=== PATIENT | female | born 1945 | race Caucasian/White ===

== ENCOUNTER 2020-04-11 08:00 | Outpatient (RCR) | payer MEDICARE, SELFPAY ==
[2020-03-06 07:52] VITALS: BP 128/76; PULSE 55; O2SAT 99
== END 2020-05-03 13:18 | disposition other institution (70) ==
LOC: HO.PT 08:00
PROVIDERS: Visit Provider Physical Medicine & Rehabilitation
DX: M54.5 Low back pain (principal)
CPT/HCPCS: 97110; 97162; 97530

== ENCOUNTER → 2020-08-12 12:47 | Outpatient (BNVA) | payer MEDICARE, SELFPAY | PROVIDERS: PCP Internal Medicine; Visit Provider Internal Medicine Cardiovascular Disease | DX: Z45.018 Encounter for adjustment and management of other part of cardiac pacemaker (principal); I48.0 Paroxysmal atrial fibrillation; Z51.81 Encounter for therapeutic drug level monitoring | CPT/HCPCS: 93005; 99202 ==

== ENCOUNTER 2020-08-13 07:46 | Outpatient (REF) | payer MEDICARE, SELFPAY ==
--- NOTE | 2020-08-13 16:20 | PFT_ITS ---
INDICATION: Atrial fibrillation. SPIROMETRY: FEV1 to FVC of 81% with an FEV1 of 1.45 L, which is 82% predicted, FVC of 1.78 L, which is 75% predicted. No significant response to bronchodilators noted. Maximum voluntary ventilation 94% predicted. LUNG VOLUMES: Total lung capacity 76% predicted, where diffusion capacity of 47% predicted. COMPARISONS: None available. INTERPRETATION: No obstructive ventilatory defect. No significant response to bronchodilators noted. Normal maximum voluntary ventilation. The patient does have a mild restrictive ventilatory defect of unclear etiology, although interstitial lung conditions cannot be ruled out. In addition to that, the patient has a [id number] diffusion impairment, therefore underlying interstitial lung conditions and/or pulmonary vascular conditions should be considered. Clinical correlation warranted. Imaging studies are warranted. Neftali Martinez MD MR/MODL / [id number]
== END 2020-08-13 07:47 | disposition home or self-care (01) ==
LOC: HO.RESP 07:46
PROVIDERS: PCP Internal Medicine; Visit Provider Internal Medicine Cardiovascular Disease
DX: I48.0 Paroxysmal atrial fibrillation (principal)
CPT/HCPCS: 94060; 94727; 94729

== ENCOUNTER → 2020-09-12 10:05 | Outpatient (BNVA) | payer MEDICARE, SELFPAY | PROVIDERS: PCP Internal Medicine; Visit Provider Internal Medicine | DX: J98.4 Other disorders of lung (principal); R06.00 Dyspnea, unspecified; Z79.899 Other long term (current) drug therapy | CPT/HCPCS: 99202 ==

== ENCOUNTER 2020-10-29 09:36 | Outpatient (REF) | payer MEDICARE, SELFPAY ==
[2020-10-29 12:21] LABS: TSH reflex Free T4 0.75 uIU/mL (0.32-4.0)
[2020-10-29 12:44] LABS: Alanine Aminotransferase 54 U/L (0-31); Albumin Level 4.1 g/dL (3.5-5.0); Alkaline Phosphatase 81 U/L (39-117); Aspartate Amino Transferase 70 U/L (5-31); Bilirubin Direct 0.6 mg/dL (0.0-0.5); Total Protein 7.4 g/dL (6.5-8.0)
== END 2020-10-29 09:37 | disposition home or self-care (01) ==
LOC: HO.LAB 09:36
PROVIDERS: PCP Internal Medicine; Visit Provider Internal Medicine Cardiovascular Disease
DX: I48.0 Paroxysmal atrial fibrillation (principal)
CPT/HCPCS: 36415; 80076; 84443

== ENCOUNTER → 2020-11-04 13:24 | Outpatient (BNVA) | payer MEDICARE, SELFPAY | PROVIDERS: PCP Internal Medicine; Referring Provider Internal Medicine; Visit Provider Internal Medicine Cardiovascular Disease | DX: I48.0 Paroxysmal atrial fibrillation (principal); Z95.0 Presence of cardiac pacemaker; Z79.899 Other long term (current) drug therapy | CPT/HCPCS: 99212 ==

== ENCOUNTER 2020-11-12 09:14 | Outpatient (REF) | payer MEDICARE, SELFPAY ==
[2020-11-12 10:18] LABS: MANUAL DIFF FLAG NO
[2020-11-12 10:41] LABS: Basophils Absolute Auto 0.1 X10*3/uL (0.0-0.2); Basophils Percent Auto 0.7 % (0-2); Eosinophils Absolute Auto 0.1 X10*3/uL (0.0-0.4); Eosinophils Percent Auto 1.6 % (0-4); Hematocrit 41.7 % (37-47); Hemoglobin 13.4 g/dl (12.0-16.0); Imm Gran Abs Auto 0.02 X10*3/uL (0.00-0.03); Imm Gran Pct Auto 0.3 % (0.0-0.4); Lymphocytes Absolute Auto 1.3 X10*3/uL (1.2-4.9); Lymphocytes Percent Auto 18.9 % (20-40); Mean Corpuscular HGB Conc 32.1 g/dl (31.0-35.0); Mean Corpuscular Hemoglobin 30.5 pg (27.0-33.0); Mean Corpuscular Volume 94.8 fL (80-98); Mean Platelet Volume 11.3 fL (9.4-12.3); Monocytes Absolute Auto 0.7 X10*3/uL (0.1-1.2); Monocytes Percent Auto 10.4 % (2-11); Neutrophils Absolute Auto 4.8 X10*3/uL (2.0-8.3); Neutrophils Percent Auto 68.1 % (45-73); Platelet Count 241 X10*3/uL (160-400); Red Cell Distribution Width 14.7 % (11.0-16.0)
[2020-11-12 10:44] LABS: Alanine Aminotransferase 54 U/L (0-31); Albumin Level 4.3 g/dL (3.5-5.0); Alkaline Phosphatase 80 U/L (39-117); Anion Gap 14 (12-20); Aspartate Amino Transferase 71 U/L (5-31); B Type Natriuretic Peptide 143 pg/mL (<100); Bilirubin Total 1.6 mg/dL (0.0-1.0); Blood Urea Nitrogen 20 mg/dL (9-16); Calcium 9.7 mg/dL (8.4-10.2); Carbon Dioxide 26 mmol/L (22-29); Chloride 108 mmol/L (96-108); Cholesterol 172 mg/dL; Estimated Glomerular Filt Rate 58; Glucose Random 88 mg/dL (60-115); HDL Cholesterol 105 mg/dL; LDL Cholesterol Calculated 54 mg/dl; Potassium 4.4 mmol/L (3.3-5.1); Sodium 144 mmol/L (135-145); Total Protein 7.6 g/dL (6.5-8.0); Triglycerides 68 mg/dL
[2020-11-12 11:05] LABS: Free T4 (Free Thyroxine) 1.28 ng/dL (0.71-1.85); Vitamin D 25-OH Total 69.5 ng/mL (>30)
[2020-11-12 11:13] LABS: Glucose Urine UA NEG (NEG); Leukocyte Esterase Urine NEG (NEG); Nitrite Urine NEG (NEG); Specific Gravity - Urine 1.025 (1.005-1.025); Urine Blood NEG (NEG); Urine Ketones NEG (NEG); Urine Protein TRACE MG/DL (NEG-TRACE)
[2020-11-12 11:19] LABS: Appearance Urine CLEAR; Color Urine YELLOW
[2020-11-12 11:53] LABS: RBC Urine 0 /HPF (0); Squamous Epithelial Cell Urine TRACE /LPF; WBC Urine 0-2 /HPF (0-4)
[2020-11-12 11:58] LABS: Folate 18.6 ng/mL (> or = 4.0); Vitamin B12 1253 pg/mL (200-900)
== END 2020-11-12 09:15 | disposition home or self-care (01) ==
LOC: HO.LAB 09:14
PROVIDERS: PCP Internal Medicine; Visit Provider Internal Medicine
DX: E78.00 Pure hypercholesterolemia, unspecified (principal); E03.9 Hypothyroidism, unspecified; N18.9 Chronic kidney disease, unspecified
CPT/HCPCS: 36415; 80053; 80061; 81001; 82306; 82607; 82746; 83880; 84439; 84443; 85025

== ENCOUNTER 2020-11-16 17:52 | Emergency (ER) | payer MEDICARE, SELFPAY ==
--- NOTE | ~2020-11-16 | XR_ITS ---
EXAMINATION: XR WRIST, LEFT CLINICAL INFORMATION: History of fall. COMPARISON: None TECHNIQUE: PA, lateral, and oblique views of the left wrist. FINDINGS: Moderate diffuse osteopenia. Comminuted the fracture is present at the distal left radius with dorsal angulation of the distal fracture fragments. Evidence of intra-articular fracture line extension is present. Note is also made of fracture of the ulnar styloid process. The radioulnar alignment is intact. XR/XR wrist LT 2V IMPRESSION: 1. Abnormal radiographs of the left wrist showing evidence of comminuted distal radial fracture with intra-articular extension and ulnar styloid process fracture. 2. Moderate diffuse osteopenia. 3. Intact distal radioulnar joint. 4. No radiographic evidence of any carpal bone injury.
--- NOTE | ~2020-11-16 | XR_ITS ---
EXAMINATION: XR WRIST, LEFT CLINICAL INFORMATION: Post reduction COMPARISON: Same day study TECHNIQUE: PA, lateral, and oblique views of the left wrist. FINDINGS: Cast material limits evaluation. Once again fracture of the distal radius and ulnar is seen. No change in fracture fragment position. Mild ventral angulation. XR/XR wrist LT min 3V IMPRESSION: Casted fracture. No change in position of fracture fragments.
[2020-11-16 17:56] VITALS: BP 125/59; PULSE 62; RESP 18; TEMP 36.7; O2SAT 96; BMI 17.9
--- NOTE | 2020-11-16 18:21 | ED_ITS ---
HPI - Extremity Problem General Chief complaint: Extremity Injury, Upper Stated complaint: WRIST INJ Source: patient Mode of arrival: ambulatory Limitations: no limitations History of Present Illness HPI Narrative: 75-year-old female presents with left wrist deformity after falling on outstretched arm. Patient tripped over her dog. She does not describe any other symptoms at this time. MD Complaint: extremity pain Onset (ago): hour(s) ( Within the hour of arrival) Pain Consistency: constant Location: left and upper extremity Severity scale (1-10): 8 Quality: aching Radiation: distal Relieving factors: nothing Exacerbating factors: range of motion and palpation Associated symptoms: denies other symptoms Related Data Home Medications Medication Instructions Recorded Confirmed amlodipine 10 mg tablet 10 mg PO DAILY 08/12/20 11/04/20 cholecalciferol (vitamin D3) 25 25 mcg PO DAILY 08/12/20 11/04/20 mcg (1,000 unit) capsule cyanocobalamin (vitamin B-12) mcg PO DAILY 08/12/20 08/15/20 1,000 mcg capsule furosemide 20 mg tablet 20 mg PO DAILY 08/12/20 11/04/20 multivitamin 1 tab PO DAILY 08/12/20 11/04/20 rivaroxaban 15 mg tablet 15 mg PO DAILY 08/12/20 11/04/20 Previous Rx's Medication Instructions Recorded levothyroxine 75 mcg tablet 75 mcg PO DAILY #90 tab 08/26/20 rosuvastatin 10 mg tablet 10 mg PO BEDTIME #90 tab 08/27/20 atenolol 100 mg tablet 100 mg PO DAILY 90 Days #90 tab 11/11/20 oxycodone 5 mg PO Q8H PRN #20 tab 11/16/20 Allergies Allergy/AdvReac Type Severity Reaction Status Date / Time No Known Allergies Allergy Verified 11/16/20 18:02 [No Known Allergies*] Review of Systems Review of Systems: Constitutional: No Fever, No Chills ENT/Mouth: No Ear Pain, No Hoarseness, No sore throat Eyes: No Eye Pain, No Swelling, No Redness, No Foreign Body Cardiovascular: No Chest Pain, No SOB Respiratory: No Cough, No Dyspnea Gastrointestinal: No Nausea, No Vomiting, No Diarrhea, No abdominal Pain Genitourinary: No Dysuria, No Hematuria Musculoskeletal: positive left wrist pain and visible deformity, No Myalgias, No Joint Swelling Skin: No Skin lacerations, No rash Neuro: No Weakness, No Numbness, No Paresthesias, No Loss of Consciousness, No Dizziness, No Headache Psych: No Anxiety/Panic, No Depression Heme/Lymph: no easy bruising, no Lymphadenopathy Endocrine: No Polyuria, No Polydipsia Yes all other systems are reviewed and are negative [facility] Past Medical History Attestation statement: The following information was validated with the patient. Source: old records reviewed Medical History Chronic kidney disease Dyspnea on exertion Fatty liver Hypercholesterolemia Restrictive lung disease T12 compression fracture Surgical History History of back surgery Social History Social History Alcohol intake: unknown Patient Tobacco Use Status: Never used Tobacco Use of substances other than those prescribed or required for medical reasons: Unknown Advance Directives: Yes Advance Directives Information Provided: No Advance Directives on File: No Physical Exam Vital Signs: Vital Signs: Last Vital Signs Temp 98.0 F 11/16/20 17:56 Pulse 62 11/16/20 17:56 Resp 18 11/16/20 17:56 BP 125/59 L 11/16/20 17:56 Pulse Ox 96 11/16/20 17:56 Body Mass Index 17.9 Appearance: Alert. Oriented X3. No acute distress. Eyes: Pupils equal, round and reactive to light. ENT: Pharynx normal. Neck: Normal inspection. Neck supple. CVS: Normal heart rate and rhythm. Pulses normal. Respiratory: No respiratory distress. Breath sounds normal. Abdomen: Soft and nontender. Skin: Skin warm and dry. Normal skin color. Normal skin turgor. Extremities: equal pulses and brisk capillary fill, visible deformity to the left wrist. Decreased range of motion secondary to fracture. Neuro: No motor deficit. No sensory deficit. Course Course Course Narrative: 75-year-old female presents with left wrist injury and visible deformity after tripping over her dog. No other injuries, full range of motion to all extremities except for the left wrist. Brisk capillary refill in equal radial pulses. Patient is able to move all fingers to both hands. X-ray does indicate comminuted distal radial fracture, will attempt to reduce. Please refer to procedure notes for full details. Reduction successful, sugar-tong splint in place. I did discuss this case with PA insulation packer for our Orthopedics. I will have patient follow up with Ortho Wednesday. Approximately 30 minute status post reduction, patient continues to have brisk capillary refill to all digits able to move digits without difficulty. Patient verbalized understanding of and agrees to plan of care discharge home. Procedures Nerve Block Nerve Block 1: Local Anesthetic: lidocaine 2% Amount of anesthesia used (mL): 20 Side: left Nerve Blocks: hematoma block Procedure Successful: Yes Patient Tolerated Procedure: well and no complications Orthopedic Joint Reduction Joint #1: Time Out Performed: Yes Side: left Joint Reduction Location: wrist Analgesia: hematoma block Local Anesthesia: lidocaine 2% Amount of anesthesic used (mL): 20 Technique used: traction/counter-traction Post-reduction neuro exam: intact and no change Post-reduction vascular: intact and no change Post Reduction X-Ray Obtained: Yes Post Reduction X-Ray Results: reduced Splint Applied: Yes Patient Tolerated Procedure: well and no complications MDM - Extremity (Nontraumatic) MDM Narrative Medical decision making narrative: Left wrist fracture Medical Records Attestation: I reviewed the patient's medical records. Imaging Data left wrist: Attestation: I personally reviewed and interpreted this imaging study as follows: Radiologist's impression: EXAMINATION: XR WRIST, LEFT CLINICAL INFORMATION: History of fall. COMPARISON: None TECHNIQUE: PA, lateral, and oblique views of the left wrist. FINDINGS: Moderate diffuse osteopenia. Comminuted the fracture is present at the distal left radius with dorsal angulation of the distal fracture fragments. Evidence of intra-articular fracture line extension is present. Note is also made of fracture of the ulnar styloid process. The radioulnar alignment is intact. XR/XR wrist LT 2V IMPRESSION: 1. Abnormal radiographs of the left wrist showing evidence of comminuted distal radial fracture with intra-articular extension and ulnar styloid process fracture. 2. Moderate diffuse osteopenia. 3. Intact distal radioulnar joint. 4. No radiographic evidence of any carpal bone injury. left wrist status post reduction: Attestation: I personally reviewed and interpreted this imaging study as follows: Radiologist's impression: EXAMINATION: XR WRIST, LEFT CLINICAL INFORMATION: Post reduction COMPARISON: Same day study TECHNIQUE: PA, lateral, and oblique views of the left wrist. FINDINGS: Cast material limits evaluation. Once again fracture of the distal radius and ulnar is seen. No change in fracture fragment position. Mild ventral angulation. XR/XR wrist LT min 3V IMPRESSION: Casted fracture. No change in position of fracture fragments. Discharge Plan Discharge Clinical Impression: Hx of reduction of closed fracture Closed fracture of left wrist Qualifiers: Encounter type: initial encounter Qualified Code(s): S62.102A - Fracture of unspecified carpal bone, left wrist, initial encounter for closed fracture Patient Disposition: Home, Self-Care Instructions: Wrist Fracture in Adults (ED), Closed Reduction (ED) Additional Instructions: you were evaluated for left wrist fracture and pain after a fall. We reduced the fracture. Please keep the splint in place until you see Orthopedics. I prescribed oxycodone. Oxycodone is a narcotic and has high risk for addiction and abuse. Do not drive or operate machinery while taking this medication. This medication can delay reaction time, increased risk for falls, cause drowsiness, and constipation. Drink plenty of fluids, use Colace and MiraLax to help soften stools. Follow-up with orthopedics on Wednesday morning. Please keep the splint in place. Thank you for choosing this emergency department for evaluation. Please follow-up with primary care physician as needed. Return to the emergency department for any new, concerning, or worsening symptoms. Prescriptions: New oxycodone 5 mg tablet 5 mg PO Q8H PRN (Reason: pain) Qty: 20 RF: 0 No Action levothyroxine 75 mcg tablet 75 mcg PO DAILY Qty: 90 RF: 2 rosuvastatin 10 mg tablet 10 mg PO BEDTIME Qty: 90 RF: 1 atenolol 100 mg tablet 100 mg PO DAILY 90 Days Qty: 90 RF: 1 amlodipine 10 mg tablet 10 mg PO DAILY RF: 0 Xarelto 15 mg tablet 15 mg PO DAILY RF: 0 furosemide 20 mg tablet 20 mg PO DAILY RF: 0 cyanocobalamin (vitamin B-12) 1,000 mcg capsule PO DAILY RF: 0 multivitamin Tablet 1 tab PO DAILY RF: 0 cholecalciferol (vitamin D3) 25 mcg (1,000 unit) capsule 25 mcg PO DAILY RF: 0 Referrals: Mery Villar PA-C [Physician [employer]] - 2 days ( comminuted fracture left wrist)
[2020-11-16] MEDS: Lidocaine HCl 2 % MPF 5 ML VIAL 30 ML SUBCUT (18:45)
== END 2020-11-16 19:37 | disposition home or self-care (01) ==
PROVIDERS: Emergency Provider Emergency Medicine; PCP Internal Medicine
DX: S52.572A Other intraarticular fracture of lower end of left radius, initial encounter for closed fracture (principal); S52.612A Displaced fracture of left ulna styloid process, initial encounter for closed fracture; W01.0XXA Fall on same level from slipping, tripping and stumbling without subsequent striking against object, initial encounter; Y93.9 Activity, unspecified; Y92.9 Unspecified place or not applicable; Y99.9 Unspecified external cause status
CPT/HCPCS: 25605; 73100; 73110; 99284

== ENCOUNTER 2020-11-20 07:46 | Outpatient (REF) | payer MEDICARE, SELFPAY ==
--- NOTE | ~2020-11-20 | XR_ITS ---
EXAMINATION: XR WRIST, LEFT CLINICAL INFORMATION: Fracture COMPARISON: Previous x-ray 11/16/2020 TECHNIQUE: PA, lateral, and oblique views of the left wrist. FINDINGS: There is a transverse impacted fracture of the left distal radius. This appears comminuted and intra-articular with the radiocarpal joint. There is slight dorsal angulation. There is a minimally displaced ulnar styloid fracture. Fractures appear unchanged. The bones are osteopenic. There is surrounding soft tissue swelling. XR/XR wrist LT min 3V IMPRESSION: No change in left distal radius and ulnar styloid fractures from 11/16/2020 exam.
== END 2020-11-20 07:47 | disposition home or self-care (01) ==
LOC: HO.HOSX 07:46
PROVIDERS: Visit Provider Physician Assistant
DX: S52.532D Colles' fracture of left radius, subsequent encounter for closed fracture with routine healing (principal)
CPT/HCPCS: 29075; 73110; 99202

== ENCOUNTER 2020-11-26 12:35 | Day surgery (SDC) | payer MEDICARE, SELFPAY ==
--- NOTE | 2020-11-22 08:52 | HO.ANESPROP2 ---
HPI - Anesthesia Eval Consult details Narrative: 75yo F for Left Radius Distal ORIF Xarelto for afib Pacer in situ PMFSH Active Problems Active Problems: All Active Problems (Updated 11/19/20 @ 10:44 by Thong Matthews MD) Distal radius fracture, left (Acute) Dyspnea on exertion (Acute) Restrictive lung disease (Acute) Abnormal PFTs (pulmonary function tests) (Acute) Hypercholesterolemia (Acute) Hypothyroid (Acute) LFTs abnormal (Acute) Chronic kidney disease (Acute) Therapeutic drug monitoring (Acute) Pacemaker (Acute) PAF (paroxysmal atrial fibrillation) (Acute) Past Medical History Medical History Chronic kidney disease Dyspnea on exertion Fatty liver Hypercholesterolemia Restrictive lung disease T12 compression fracture Family History Family History Father No problems noted. Mother No problems noted. Brother Prostate cancer Sister No problems noted. Son No problems noted. Daughter No problems noted. Surgical History Surgical History History of back surgery Social History Social History (Updated 11/20/20 @ 11:01 by Rodrigo Churchill) Housing: House Alcohol intake: unknown Patient Tobacco Use Status: Former Tobacco user Tobacco use type: Cigarette e-Cigarette/Vaping Use: Never Used Second Hand Smoke Exposure: No service: No Current occupational status: retired Current occupation: right handed Current occupational exposures/hazards: No Meds Allergies Allergy/AdvReac Type Severity Reaction Status Date / Time No Known Allergies Allergy Verified 11/19/20 09:57 [No Known Allergies*] Home Medications Medication Instructions Recorded Confirmed Last Taken Type amlodipine 10 mg tablet 10 mg PO DAILY 08/12/20 11/19/20 11/26/20 History cholecalciferol (vitamin D3) 25 25 mcg PO DAILY 08/12/20 11/19/20 Unknown History mcg (1,000 unit) capsule cyanocobalamin (vitamin B-12) mcg PO DAILY 08/12/20 11/19/20 Unknown History 1,000 mcg capsule furosemide 20 mg tablet 20 mg PO DAILY 08/12/20 11/19/20 11/26/20 History multivitamin 1 tab PO DAILY 08/12/20 11/19/20 Unknown History rivaroxaban 15 mg tablet 15 mg PO DAILY 08/12/20 11/19/20 Unknown History Exam Exam Date and Time: November 22, 2020 0852 Pertinent Lab Results Pertinent Lab Results: Laboratory Tests 11/12/20 11/12/20 09:35 09:35 WBC 7.0 Hgb 13.4 Hct 41.7 Plt Count 241 Sodium 144 Potassium 4.4 Chloride 108 Carbon Dioxide 26 BUN 20 H Creatinine 0.95 Narrative Narrative: ECHO 2017 EF 60-65% Gr 1 DD No signif valve issues RV sys pressure is normal Inferior vena cava flow indicates hypovolemia No evidence of pericardial effusion EKG 07/2020 Atrial paced V sensed rhythm 55/min, normal axis, anterior T wave inversions (new compared to 2017), QTC 470 msec. Pacer Interr 10/2020 DDDR-55 AP 73% Battery life ok. PFT 07/2020 PULMONARY FUNCTION TEST OF 08/13/2020 REVIEWED. F WE SEE 78 FEV1 84% TLC 76% DIFFUSION CAPACITY 47 DL/VA 67 C/W MILD RESTRICTIVE DISORDER. NO OBSTRUCTIVE DISORDER DECREASED DLCO, MAY BE RELATED TO HEART DISEASE AND PULMONARY EMPHYSEMA. Assessment and Plan Assessment Anesthesia Assessment: Chart Reviewed
[2020-11-26] VITALS (7 sets, daily range): BP systolic 116–133; BP diastolic 63–69; PULSE 55–64; RESP 15–18; TEMP 36.3–36.5; O2SAT 95–98; BMI 17.9
--- NOTE | ~2020-11-26 | FL_ITS ---
EXAMINATION: XR FLUOROSCOPY WITH IMAGES CLINICAL INFORMATION: ORIF radial fracture COMPARISON: Radiographs left wrist 11/20/2020 TECHNIQUE: Fluoroscopy performed by Dr. Cait Milner. Fluoroscopy time: 1.2 minutes DAP: 616.9 mGycm2 Images: 2 FINDINGS: Distal left radial fracture is reduced with dorsal side plate and screws. The hardware is intact. Fracture fragments are in near-anatomic alignment. Ulnar variance is neutral. Ulnar styloid fracture in anatomic alignment. FL/FL guidance in OR IMPRESSION: Status post open reduction and internal fixation distal radial fracture.
[2020-11-26] MEDS: Lactated Ringers 1,000 ML 50 ML IVCONT (13:05)
--- NOTE | 2020-11-26 16:50 | P.OP_ITS ---
Operative Note Operative Note Date of Service: 11/26/20 Narrative: Operative Note Narrative: Preop diagnosis: 1. Left Distal radius fracture Postop diagnosis: Same Procedure: 1. Left Distal radius fracture open reduction internal fixation Surgeon: Cait Milner MD Anesthesia: Mac plus regional block Findings: left extra-articular distal radius fracture Implants: A 3 hole Accu Med volar locking plate, with four 2.3 mm locking pegs/screws, and 3 3.5 mm cortical screws Tourniquet time: 31 minutes EBL: 5.0 ml Specimen: None Drains: None Complications: None Disposition: Brought to the recovery room in stable condition Plan: Follow-up in 10-14 days for wound check, suture removal and postop radiographs The patient will be placed in either a short-arm cast or a volar wrist splint. Encouraged no lifting of anything heavier than a cell phone. Please encourage active and passive range of motion of the digits. Follow-up at 4-5 weeks postop for repeat radiographs. Indications: The patient is a 75 year old woman with left displaced distal radius fracture . The risks and benefits of operative treatment, including but not limited to risk of damage to blood vessels, nerves, tendons, infection, recurrence, persistent pain or numbness, incomplete resolution of preoperative symptoms, or need for further surgery were discussed with the patient and they wished to proceed with surgery. Procedure: Once consent was obtained patient was brought back to the operating suite and placed in the operating table in a supine position. A regional block was performed by the anesthesia team. Perioperative antibiotics and anesthesia was administered by the anesthesia team. A tourniquet was applied to the proximal aspect of the left upper extremity and the limb was prepped and draped in a standard surgical fashion. The limb was elevated exsanguinated with Esmarch bandage and the tourniquet inflated to 250 mm of mercury for a total tourniquet time of 31 minutes. The FluoroScan was used throughout the case to assess our reduction, and facilitate implant placement. A gentle closed reduction was 1st performed on the patient's left distal radius fracture. Was assessed radiographically before proceeding with the reduction internal fixation. I then made an 8 cm longitudinal incision over the distal aspect of the flexor carpi radialis tendon. The incision was made through the skin to the subcutaneous tissue using a 15. Blade. Then carefully dissected down to flexor carpi radialis tendon she tenotomy scissors. The FCR tendon sheath was then incised longitudinally using tenotomy scissors under direct visualization. The FCR tendon was then retracted ulnarly. I then made a longitudinal incision in the volar forearm fascia through the floor of FCR tendon sheath using tenotomy scissors under direct visualization. I identified the interval between the radial artery and the flexor tendons. This interval was developed further with my index finger, releasing some of the muscular fibers of the flexor pollicis longus. A dull weatlander retractor was then placed. I then created an ulnarly based flap of the pronator quadratus by releasing the radial and distal edges using a 15. Blade. A Banks elevator was used to elevate the pronator quadratus from the volar surface of the distal radius. This then revealed to us our distal radius fracture. An open reduction was then performed on our distal radius fracture. I then placed a short narrow 3 hole Accu Med volar locking plate on the volar surface of the distal radius. I placed a single K-wire through the distal aspect of the plate and into the distal radius. This was assessed using fluoroscopic images. I was satisfied with the placement of our plate. I then placed four 2.3 mm locking screws/pegs in the distal aspect of the plate and distal radius by 1st drilling bicortically with a 1.5 mm drill bit, measuring with a depth gauge, and placing the appropriate length locking screws/pegs. The placement of our plate and screws was then assessed again using fluoroscopic images. The once satisfied with the placement of the volar locking plate and screws on the distal aspect of the distal radius, the plate was then reduced to the shaft of the radius. I then placed 3 3.5 mm cortical screws to the proximal aspect of the plate and into the shaft of the radius. This was done by 1st drilling bicortically with a 2.5 mm drill bit, measuring with a depth gauge, and placing the appropriate length screw. Final radiographs were then obtained. The DRUJ was assessed and found to be stable on exam. I was satisfied with our reduction and placement of all implants. At this point the wound was irrigated with normal saline. The pronator quadratus was reduced back over the volar locking plate using some 3-0 Vicryl suture material. The tourniquet was then deflated and hemostasis was obtained with a brief period of local pressure and bipolar monopolar electrocautery. The subcutaneous layer was then reapproximated using some 4-0 Vicryl suture, and the skin edges were reapproximated using some 5 0 Prolene suture. The wound was then infiltrated with some 1% lidocaine with epinephrine postop pain control. A sterile dressing and a short dorsal splint allowing for active flexion and extension of the digits was applied. The patient appears to have tolerated the procedure well and with no complications. All digits were well vascularized c onclusion of the case.
--- NOTE | 2020-11-26 16:50 | MHC.SHP ---
Pre-Procedural Eval Section A Date of Service: 11/26/20 Section B Chief Complaint: Unspecified FX of the lower end of left radius Allergies: Allergies Allergy/AdvReac Type Severity Reaction Status Date / Time No Known Allergies Allergy Verified 11/19/20 09:57 [No Known Allergies*] Plan I have reviewed the history and physical and performed a pertinent physical examination on my patient. No changes have occurred unless specified.
== END 2020-11-26 19:15 | disposition home or self-care (01) ==
PROVIDERS: PCP Internal Medicine; Visit Provider Orthopaedic Surgery
PROC: (CPT 25607; principal; 2020-11-26 14:20)
DX: S52.552A Other extraarticular fracture of lower end of left radius, initial encounter for closed fracture (principal); W01.0XXA Fall on same level from slipping, tripping and stumbling without subsequent striking against object, initial encounter; Y93.9 Activity, unspecified; Y92.89 Other specified places as the place of occurrence of the external cause; Y99.8 Other external cause status; N18.9 Chronic kidney disease, unspecified; I48.0 Paroxysmal atrial fibrillation; E78.00 Pure hypercholesterolemia, unspecified; J98.4 Other disorders of lung; R06.09 Other forms of dyspnea; Z79.01 Long term (current) use of anticoagulants; Z79.899 Other long term (current) drug therapy; Z87.891 Personal history of nicotine dependence; Z95.0 Presence of cardiac pacemaker
CPT/HCPCS: 25607; C1713; C1769; J0690; J2250

== ENCOUNTER 2020-12-02 09:45 | Outpatient (REF) | payer MEDICARE, SELFPAY ==
--- NOTE | ~2020-12-02 | XR_ITS ---
EXAMINATION: XR WRIST, LEFT CLINICAL INFORMATION: Fracture COMPARISON: Previous x-rays most recent 11/26/2020 TECHNIQUE: 3 of the left wrist. FINDINGS: There is a plate and screws transfixing the left distal radius fracture. Orthopedic hardware appears unchanged. Alignment is anatomic. There is a nondisplaced ulnar styloid fracture that appears unchanged. The bones appear osteopenic. Soft tissues are unremarkable. XR/XR wrist LT min 3V IMPRESSION: ORIF of left distal radius fracture. Nondisplaced ulnar styloid fracture.
== END 2020-12-02 09:46 | disposition home or self-care (01) ==
LOC: HO.HOSX 09:45
PROVIDERS: Visit Provider Orthopaedic Surgery
DX: S52.532D Colles' fracture of left radius, subsequent encounter for closed fracture with routine healing (principal)
CPT/HCPCS: 73110; 99212

== ENCOUNTER 2020-12-09 12:17 | Outpatient (REF) | payer MEDICARE, SELFPAY ==
--- NOTE | ~2020-12-09 | XR_ITS ---
EXAMINATION: XR WRIST, LEFT CLINICAL INFORMATION: Fracture COMPARISON: Previous x-rays most recent 12/02/2020 TECHNIQUE: 3 views of the left wrist. FINDINGS: There is a plate and screws transfixing the left distal radius fracture. Orthopedic hardware appears unchanged. Fracture alignment appears unchanged. There is a nondisplaced ulnar styloid fracture. There are degenerative changes of the first INTERMEDIATE joint. Bones appear osteopenic. There is diffuse soft tissue swelling. XR/XR wrist LT min 3V IMPRESSION: ORIF of left distal radius fracture and nondisplaced ulnar styloid fracture. No change from 12/02/2020 exam.
== END 2020-12-09 12:18 | disposition home or self-care (01) ==
LOC: HO.HOSX 12:17
PROVIDERS: Visit Provider Physician Assistant
DX: S52.532D Colles' fracture of left radius, subsequent encounter for closed fracture with routine healing (principal)
CPT/HCPCS: 73110; 99212

== ENCOUNTER 2021-01-06 12:21 | Outpatient (REF) | payer MEDICARE, SELFPAY ==
--- NOTE | ~2021-01-06 | XR_ITS ---
EXAMINATION: XR WRIST, LEFT CLINICAL INFORMATION: Left wrist pain. COMPARISON: Most recent left wrist radiographs dated 12/09/2020. TECHNIQUE: PA, lateral, and oblique views of the left wrist. FINDINGS: Redemonstration of a distal radial ORIF without evidence of hardware complication. No hardware fracture. No perihardware lucency. Distal radial fracture in unchanged anatomic alignment. Distal ulnar styloid fracture in unchanged anatomic alignment. No new osseous erosion. XR/XR wrist LT min 3V IMPRESSION: Distal radial ORIF without evidence of hardware complication. Associated radial fracture in unchanged anatomic alignment. Ulnar styloid fracture, unchanged.
== END 2021-01-06 12:22 | disposition home or self-care (01) ==
LOC: HO.HOSX 12:21
PROVIDERS: Visit Provider Orthopaedic Surgery
DX: S52.532D Colles' fracture of left radius, subsequent encounter for closed fracture with routine healing (principal)
CPT/HCPCS: 73110; 99212

== ENCOUNTER → 2021-03-10 13:34 | Outpatient (BNVA) | payer MEDICARE, SELFPAY | PROVIDERS: PCP Internal Medicine; Referring Provider Internal Medicine; Visit Provider Internal Medicine Cardiovascular Disease | DX: I48.0 Paroxysmal atrial fibrillation (principal); R42 Dizziness and giddiness | CPT/HCPCS: 99212 ==

== ENCOUNTER 2021-03-29 20:27 | Emergency (ER) | payer MEDICARE, SELFPAY ==
--- NOTE | ~2021-03-29 | XR_ITS ---
EXAMINATION: XR HUMERUS, RIGHT CLINICAL INFORMATION: Fall, mid shaft humeral pain and deformity. COMPARISON: No similar priors. TECHNIQUE: AP and lateral views of the right humerus. FINDINGS: There is a displaced, impacted and comminuted fracture of the mid humeral shaft. No other fractures. The humeral head remains well-seated in the glenoid. The acromioclavicular joint and coracoid processes appear intact. No evidence of acutely displaced right-sided rib fractures. XR/XR humerus RT IMPRESSION: Comminuted, angulated and impacted fracture of the right mid humeral shaft.
--- NOTE | ~2021-03-29 | CT_ITS ---
EXAMINATION: CT HEAD WITHOUT CONTRAST CLINICAL INFORMATION: Fall, headache, head injury, on Xarelto. COMPARISON: No similar priors. TECHNIQUE: Contiguous axial imaging was performed from the skull base to vertex without intravenous administration of contrast. This CT examination was performed using dose optimization techniques as appropriate, variously including the following: *Automated exposure control *Adjustment of mA and/or kV according to patient size (this includes techniques or standardized protocols for targeted exams where dose is matched to indication/reason for exam; i.e. extremities or head) *Use of iterative reconstruction technique DLP: 562 mGy-cm FINDINGS: There is no evidence of acute intracranial hemorrhage or edematous territorial infarction. There is no abnormal attenuation within the brain parenchyma. Cosme-white matter differentiation is preserved. The ventricles are normal in size and configuration. No evidence for obstructive hydrocephalus. No abnormal mass effect or midline shift. No extra-axial fluid collections. There is a 6 mm calcified meningioma to the left of the interhemispheric falx. There is indeterminate heterogeneity of the bone marrow which could be seen in the setting of systemic metabolic illnesses. No aggressive appearing osseous lesions or acute osseous fractures. The mastoid air cells and paranasal sinuses are clear. CT/CT head/brain wo con IMPRESSION: No evidence of acute intracranial hemorrhage or edematous territorial infarction.
[2021-03-29 20:41] VITALS: BP 119/76; PULSE 64; RESP 16; O2SAT 98; BMI 18.7
--- NOTE | 2021-03-29 21:12 | ED.FALL ---
HPI - Fall General Chief Complaint: Fall Stated Complaint: ?Stroke/Fall Time Seen by Provider: 03/29/21 20:50 Source: patient and family (Sister) Mode of arrival: ambulatory Limitations: no limitations History of Present Illness HPI Narrative: 75-year-old female presents emergency department for evaluation of right upper lip laceration, head injury, right arm injury after falling. The patient states that she has a history of dizziness especially with standing. She states that she was sitting and drinking beer when she stood up and then fell. She landed on the right side of her face and did hit her head. She also injured her right arm. She has a small laceration above her right lip. She has pain in her right arm and has an obvious deformity to the mid shaft of the humerus, she states the pain is a constant, sharp pain which is worse with movement, currently the pain is 0/10 but with movement the pain is 10/10. The patient also injured her left knee but states that the pain is better and she is able to walk without any difficulty. Patient states that her tetanus status is up-to-date. She is on Xarelto for paroxysmal atrial fibrillation. She has been compliant with his medication. She denied being ill in any way prior to falling. Related Data Home Medications Medication Instructions Recorded Confirmed cholecalciferol (vitamin D3) 25 25 mcg PO DAILY 08/12/20 03/10/21 mcg (1,000 unit) capsule cyanocobalamin (vitamin B-12) mcg PO DAILY 08/12/20 03/10/21 1,000 mcg capsule multivitamin 1 tab PO DAILY 08/12/20 03/10/21 Previous Rx's Medication Instructions Recorded amlodipine 10 mg tablet 10 mg PO DAILY 90 Days #90 tab 01/06/21 atenolol 100 mg tablet 100 mg PO DAILY 90 Days #90 tab 01/06/21 furosemide 20 mg tablet 20 mg PO DAILY 90 Days #90 tab 01/06/21 rivaroxaban 15 mg tablet 15 mg PO DAILY 90 Days #90 tab 01/06/21 levothyroxine 75 mcg tablet 75 mcg PO DAILY #90 tab 03/14/21 rosuvastatin 10 mg tablet 10 mg PO BEDTIME #90 tab 03/17/21 Allergies Allergy/AdvReac Type Severity Reaction Status Date / Time No Known Allergies Allergy Verified 03/10/21 14:04 [No Known Allergies*] Review of Systems Review of Systems: Yes all other systems are reviewed and are negative [facility] Past Medical History [facility] Narrative: Social history: She denies tobacco use. She drinks alcohol 1-3 beers per day. She denies drug use. Source: unable to obtain Medical History Chronic kidney disease Dyspnea on exertion Fatty liver Hypercholesterolemia Restrictive lung disease T12 compression fracture Surgical History History of back surgery Family History Family History Father No problems noted. Mother No problems noted. Brother Prostate cancer Sister No problems noted. Son No problems noted. Daughter No problems noted. Other Mental health disorder Substance use disorder Social History Social History Housing: House Alcohol intake: current Alcohol intake frequency: does not drink Patient Tobacco Use Status: Former Tobacco user Tobacco use type: Cigarette e-Cigarette/Vaping Use: Never Used Second Hand Smoke Exposure: No Advance Directives: No Advance Directives Information Provided: Yes service: No Current occupational status: retired Current occupation: right handed Current occupational exposures/hazards: No Physical Exam Vital Signs: Vital Signs: Last Vital Signs Pulse 64 03/29/21 20:41 Resp 18 03/29/21 22:22 BP 119/76 03/29/21 20:41 Pulse Ox 98 03/29/21 20:41 Body Mass Index 18.7 Const: General: cooperative and no acute distress Orientation/consciousness: oriented to person and oriented to place Limitations: no limitations HENMT: Head: Yes normal to inspection, Yes normocephalic and Yes atraumatic Ears: external ears normal General nose exam: Normal external nose present Nose image: 1. 0.75 cm laceration, full skin thickness Face and sinus: Yes other (0.75 cm full skin thickness laceration to right upper lip.) Mouth: Normal oral and palatal mucosa present Throat: Yes posterior oropharynx normal Eyes: General: appearance normal, both eyes and all related structures Pupils: Equal, round and reactive pupils present Neck: Neck: Yes normal visual inspection, Yes no lymphadenopathy, Yes trachea midline and Yes supple Chest: Chest palpation & inspection: normal inspection of the chest and normal palpation of entire chest wall Resp: Effort & Inspection: normal respiratory effort and able to speak in complete sentences Auscultation: clear to auscultation bilaterally Cardio: Rate: regular rate Rhythm: regular rhythm Heart sounds: S1 normal heart sound present, S2 normal heart sound present and no murmurs GI: Inspection: Yes normal to inspection Palpation (GI): Soft to palpation, nontender and no guarding Auscultation: normal bowel sounds : General: Yes no CVA tenderness Back/Spine/Pelvis: Back: no CVA tenderness Skin: General skin exam: no rashes or lesions noted Neuro: General: oriented to person and oriented to place Cranial nerves: Yes CN's II-XII intact bilaterally and Yes Equal, round and reactive pupils present Cognition (Neuro): normal cognition Motor exam (neuro): 5/5 motor strength present throughout Extrem: Other: The patient is unable to move her right arm secondary to pain, she has tenderness with palpation over the midshaft of the humerus with a deformity in this area, her extremities neurovascularly intact Psych: Appearance: grossly normal Speech and movement: Normal speech and movement present Affect: normal affect Attitude: cooperative Thought process: Normal thought process present Thought content: Normal thought content present Course Course Course Narrative: 75-year-old female who fell at home after standing up. The patient was sitting for a period of time prior to standing up. She was drinking alcohol this evening. The patient does have a history of orthostatic dizziness but she does not remember being dizzy prior to falling. The patient is on Xarelto for paroxysmal atrial fibrillation. She has a small 0.5 cm laceration to her right upper lip which was repaired by me with skin glued . She has an obvious of the midshaft of her right humerus. The patient was given Tylenol 975 mg and oxycodone 5 mg orally for her pain. I will obtain an x-ray of her right humerus and a CT scan of her head to rule out skull fracture or bleed secondary to Xarelto. 2259: WBC elevated 13,800. H&H was normal 13.8 and 40.3. Platelet count was normal 194,000. INR is elevated 1.9. PTT is elevated at 39. Comprehensive metabolic panel revealed a low bicarb of 21 and elevated total bilirubin of 1.3. She has had similar elevations in her bilirubin in the past. LFTs were normal. Patient was given morphine 2 mg IV and Versed 1 mg IV. With the assistance of the emergency retread technician, I placed a coaptation ortho glass and the patient's right arm. After application, the patient's arm was neurovascularly intact in her pain was improved. I did discuss the patient's presentation with the covering orthopedic physician assistant bookkeeper, Mery Villar. She stated that initial management is non operative and they will follow the patient up in the office. I am concerned about bleeding secondary to her fracture, the patient is on Xarelto prophylactically to prevent stroke at this time I believe that the risk of bleeding is higher than the risk of stroke therefore the Xarelto will be held and the patient will need to discuss restarting the Xarelto with her PCP and with the orthopedic physician. The patient states that she has oxycodone left over from her wrist fracture on she can take this medication at home. She was also advised to take Tylenol. Patient was discharged home. Procedures Laceration Right upper lip laceration: Size (cm): 0.75 Description: linear Depth: simple, single layer Pre-repair: wound explored Technique: other (Skin glued) Orthopedic Splinting/Casting Right humerus coaptation splint: Side: right Upper Extremity Injury Location: upper arm (Humerus ortho glass coaptation splint) Upper Extremity Immobilizer: sling/shoulder immobilizer Additional Comments: With the help of the emergency room retread technician, I applied a coaptation splint to the patient's right humerus, the patient tolerated the application well. After application the patient's extremities neurovascular intact. She was given a sling and swath as well MDM - Fall Lab Data Result diagrams: 03/29/21 21:54 03/29/21 21:54 Labs: Lab Results 03/29/21 03/29/21 03/29/21 Range/Units 21:54 21:54 21:54 WBC 13.8 H (4.8-10.8) X10*3/uL RBC 4.23 (4.20-5.50) X10*6/uL Hgb 13.8 (12.0-16.0) g/dl Hct 40.3 (37.0-47.0) % MCV 95.3 (80.0-98.0) fL MCH 32.6 (27.0-33.0) pg MCHC 34.2 (31.0-35.0) g/dl RDW 13.6 (11.0-16.0) % Plt Count 194 (160-400) X10*3/uL MPV 10.1 (9.4-12.3) fL Immature Gran % (Auto) 0.4 (0.0-0.4) % Neut % (Auto) 75.7 H (45-73) % Lymph % (Auto) 15.0 L (20-40) % [place] % (Auto) 7.5 (2-11) % Eos % (Auto) 0.9 (0-4) % Baso % (Auto) 0.5 (0-2) % Lymph # (Auto) 2.1 (1.2-4.9) X10*3/uL [place] # (Auto) 1.0 (0.1-1.2) X10*3/uL Eos # (Auto) 0.1 (0.0-0.4) X10*3/uL Baso # (Auto) 0.1 (0.0-0.2) X10*3/uL Abs Immat Gran (auto) 0.06 H (0.00-0.03) X10*3/uL Absolute Neuts (auto) 10.5 H (2.0-8.3) x10*3/uL Absolute Nucleated RBC 0.000 (0.0-0.012) X10*3/uL Nucleated RBC % (auto) 0.0 (0.0-0.2) /100WBC PT 22.4 H (9.9-13.0) SEC INR 1.9 H (0.9-1.1) APTT 39.3 H (24.1-38.0) SEC Sodium 137 (135-145) mmol/L Potassium 3.8 (3.3-5.1) mmol/L Chloride 102 (96-108) mmol/L Carbon Dioxide 21 L (22-29) mmol/L Anion Gap 18 (12-20) BUN 16 (9-16) mg/dL Creatinine 1.05 (0.5-1.4) mg/dL Estim Creat Clear Calc 32.3 Estimated GFR 51 Random Glucose 109 (60-115) mg/dL Calcium 9.1 D (8.4-10.2) mg/dL Total Bilirubin 1.3 H (0.0-1.0) mg/dL AST 29 D (5-31) U/L ALT 18 (0-31) U/L Alkaline Phosphatase 70 (39-117) U/L Total Protein 6.9 (6.5-8.0) g/dL Albumin 3.8 (3.5-5.0) g/dL Discharge Plan Discharge Clinical Impression: Fracture, humerus closed, Fall Patient Disposition: Home, Self-Care Instructions: Arm Fracture in Adults (ED) Additional Instructions: The CT scan of your head was normal, there is no bleeding or stroke noted. You have a mid shaft humerus fracture of your right arm Your blood work was normal. Keep the splint on it to your re-evaluated by the orthopedic doctor We placed you in an ortho glass coaptation splint. Do not get the splint wet. Take Tylenol (acetaminophen) 500 mg pills, 2 pills every 4 to 6 hours as needed for pain. For pain not relieved by Tylenol take your oxycodone as prescribed by your doctor. Call the orthopedic doctor's office on Wednesday morning to make a follow-up appointment next week. I am concerned that the Xarelto will cause increased bleeding in your right arm therefore I want you to stop the Xarelto for at least 1 week and you need to talk to your primary care doctor and the orthopedic doctor about when it would be appropriate to restart the Xarelto. Follow-up with our orthopedic doctor within 1 week. Also call your primary care doctor on Wednesday to discuss when you should restart the Xarelto. Please return to the emergency department if your symptoms get worse or if you develop any symptoms that are concerning to you. Prescriptions: No Action amlodipine 10 mg tablet 10 mg PO DAILY 90 Days Qty: 90 RF: 3 atenolol 100 mg tablet 100 mg PO DAILY 90 Days Qty: 90 RF: 3 furosemide 20 mg tablet 20 mg PO DAILY 90 Days Qty: 90 RF: 3 rivaroxaban 15 mg tablet 15 mg PO DAILY 90 Days Qty: 90 RF: 3 levothyroxine 75 mcg tablet 75 mcg PO DAILY Qty: 90 RF: 2 rosuvastatin 10 mg tablet 10 mg PO BEDTIME Qty: 90 RF: 3 cyanocobalamin (vitamin B-12) 1,000 mcg capsule PO DAILY RF: 0 multivitamin Tablet 1 tab PO DAILY RF: 0 cholecalciferol (vitamin D3) 25 mcg (1,000 unit) capsule 25 mcg PO DAILY RF: 0 Referrals: Ralph Claudio MD [Physician] - 1 week
[2021-03-29 22:09] LABS: Basophils Absolute Auto 0.1 X10*3/uL (0.0-0.2); Basophils Percent Auto 0.5 % (0-2); Eosinophils Absolute Auto 0.1 X10*3/uL (0.0-0.4); Eosinophils Percent Auto 0.9 % (0-4); Hematocrit 40.3 % (37.0-47.0); Hemoglobin 13.8 g/dl (12.0-16.0); Imm Gran Abs Auto 0.06 X10*3/uL (0.00-0.03); Imm Gran Pct Auto 0.4 % (0.0-0.4); Lymphocytes Absolute Auto 2.1 X10*3/uL (1.2-4.9); MANUAL DIFF FLAG NO; Mean Corpuscular HGB Conc 34.2 g/dl (31.0-35.0); Mean Corpuscular Hemoglobin 32.6 pg (27.0-33.0); Mean Corpuscular Volume 95.3 fL (80.0-98.0); Mean Platelet Volume 10.1 fL (9.4-12.3); Monocytes Percent Auto 7.5 % (2-11); Neutrophils Absolute Auto 10.5 x10*3/uL (2.0-8.3); Neutrophils Percent Auto 75.7 % (45-73); Platelet Count 194 X10*3/uL (160-400); Red Blood Count 4.23 X10*6/uL (4.20-5.50); Red Cell Distribution Width 13.6 % (11.0-16.0); White Blood Count 13.8 X10*3/uL (4.8-10.8)
[2021-03-29 22:15] LABS: INTERNATIONAL NORM RATIO 1.9 (0.9-1.1); Prothrombin Time 22.4 SEC (9.9-13.0)
[2021-03-29 22:19] LABS: Partial Thromboplastin Time 39.3 SEC (24.1-38.0)
[2021-03-29 22:22] VITALS: RESP 18
[2021-03-29] MEDS: Morphine Sulfate 2 MG/ML CARTRIDGE IVPUSH (22:22)
[2021-03-29] MEDS: Midazolam HCl/PF 2 MG/2 ML VIAL 1 MG IVPUSH (22:23)
[2021-03-29 22:30] LABS: Alanine Aminotransferase 18 U/L (0-31); Albumin Level 3.8 g/dL (3.5-5.0); Alkaline Phosphatase 70 U/L (39-117); Anion Gap 18 (12-20); Aspartate Amino Transferase 29 U/L (5-31); Bilirubin Total 1.3 mg/dL (0.0-1.0); Blood Urea Nitrogen 16 mg/dL (9-16); Calcium 9.1 mg/dL (8.4-10.2); Carbon Dioxide 21 mmol/L (22-29); Chloride 102 mmol/L (96-108); Creatinine Clr Calc Pharmacy 32.3; Estimated Glomerular Filt Rate 51; Glucose Random 109 mg/dL (60-115); Potassium 3.8 mmol/L (3.3-5.1); Sodium 137 mmol/L (135-145); Total Protein 6.9 g/dL (6.5-8.0)
--- NOTE | 2021-03-29 22:49 | PC.NURSE ---
IV placed. labs drawn to lab. pt medicated for pain. Splint applied to right arm. pt tolerated well. sling to pt.
[2021-03-29 23:10] VITALS: BP 98/50; PULSE 68; RESP 16; O2SAT 98
== END 2021-03-29 23:41 | disposition home or self-care (01) ==
PROVIDERS: Emergency Provider Emergency Medicine Emergency Medical Services; PCP Internal Medicine
DX: S42.301A Unspecified fracture of shaft of humerus, right arm, initial encounter for closed fracture (principal); S01.511A Laceration without foreign body of lip, initial encounter; M79.601 Pain in right arm; W18.30XA Fall on same level, unspecified, initial encounter; Y93.9 Activity, unspecified; Y92.009 Unspecified place in unspecified non-institutional (private) residence as the place of occurrence of the external cause; Y99.9 Unspecified external cause status; Z79.899 Other long term (current) drug therapy; Z87.891 Personal history of nicotine dependence
CPT/HCPCS: 12011; 29105; 36415; 70450; 73060; 80053; 85025; 85610; 85730; 96374; 96375; 99284; J2250; J2270

== ENCOUNTER 2021-04-03 08:41 | Outpatient (REF) | payer MEDICARE, SELFPAY ==
--- NOTE | ~2021-04-03 | XR_ITS ---
EXAMINATION: XR HUMERUS, RIGHT CLINICAL INFORMATION: Fracture COMPARISON: Previous x-ray 03/29/2021 TECHNIQUE: AP and lateral views of the right humerus. FINDINGS: There is an oblique fracture of the right mid humeral shaft. This appears displaced, comminuted and angulated. Alignment does not appear appreciably changed from 03/29/2021 exam. There is overlying soft tissue swelling. No other fracture is seen. XR/XR humerus RT IMPRESSION: No change in right humeral shaft fracture from 03/29/2021 exam.
== END 2021-04-03 08:42 | disposition home or self-care (01) ==
LOC: HO.HOSX 08:41
PROVIDERS: Visit Provider Physician Assistant
DX: G56.31 Lesion of radial nerve, right upper limb (principal); S42.301D Unspecified fracture of shaft of humerus, right arm, subsequent encounter for fracture with routine healing
CPT/HCPCS: 73060; 99212

== ENCOUNTER 2021-05-01 08:39 | Outpatient (REF) | payer MEDICARE, SELFPAY ==
--- NOTE | ~2021-05-01 | XR_ITS ---
EXAMINATION: XR HUMERUS, RIGHT CLINICAL INFORMATION: Right humeral shaft fracture. COMPARISON: Radiographs right humerus 04/03/2021, 03/29/2021. TECHNIQUE: AP and lateral views of the right humerus. XR/XR humerus RT FINDINGS/IMPRESSION: Mid right humeral shaft fracture is again noted. There is slight overlap of the fracture fragments. Distal fracture fragment is displaced laterally by one half bone diameter. There is some interval callus formation.
== END 2021-05-01 08:40 | disposition home or self-care (01) ==
LOC: HO.HOSX 08:39
PROVIDERS: Visit Provider Physician Assistant
DX: S42.301D Unspecified fracture of shaft of humerus, right arm, subsequent encounter for fracture with routine healing (principal); X58.XXXD Exposure to other specified factors, subsequent encounter
CPT/HCPCS: 73060; 99212

== ENCOUNTER 2021-05-29 07:37 | Outpatient (REF) | payer MEDICARE, SELFPAY ==
--- NOTE | ~2021-05-29 | XR_ITS ---
EXAMINATION: XR HUMERUS, RIGHT CLINICAL INFORMATION: Follow-up fracture right humerus COMPARISON: Right humerus 05/01/2021 TECHNIQUE: AP and lateral views of the right humerus. FINDINGS: There is overriding at oblique fracture right mid humerus with abundant callus formation. Rest the visualized right ureter is unremarkable. The soft tissues are normal. XR/XR humerus RT IMPRESSION: Oblique right mid humeral fracture with overlapping fracture fragments and significant callus formation suggestive of healing
== END 2021-05-29 07:38 | disposition home or self-care (01) ==
LOC: HO.HOSX 07:37
PROVIDERS: Visit Provider Physician Assistant
DX: S42.301D Unspecified fracture of shaft of humerus, right arm, subsequent encounter for fracture with routine healing (principal); X58.XXXD Exposure to other specified factors, subsequent encounter
CPT/HCPCS: 73060; 99212

== ENCOUNTER 2021-06-05 09:05 | Outpatient (REF) | payer MEDICARE, SELFPAY ==
--- NOTE | ~2021-06-05 | MM_ITS ---
EXAMINATION: MM SCREENING DIGITAL BREAST TOMOSYNTHESIS, BILATERAL CLINICAL INFORMATION: Screening. Asymptomatic. The lifetime risk of breast cancer based on the Tyrer-Cuzick Model is 2.3%. COMPARISON: Mammography: May 29, 2020 and studies dating back to January 02, 2019 TECHNIQUE: Digital breast tomosynthesis is performed in both the craniocaudal and mediolateral oblique views along with computer-aided detection (CAD). Synthesized 2D images are generated from the tomosynthesis. FINDINGS: The breasts are heterogeneously dense, which may obscure small masses (ACR BI-RADS breast composition Category c). There are no significant masses, abnormal calcifications, or other abnormalities. MM/MM tomosynthesis screening BI IMPRESSION: There are no significant changes from prior study. ASSESSMENT: BI-RADS 1: Negative RECOMMENDATION: Routine annual mammography screening. This patient's information was entered into a reminder system with a target due date for their next mammogram.
== END 2021-06-05 09:06 | disposition home or self-care (01) ==
LOC: HO.MAMMO 09:05
PROVIDERS: Visit Provider Nurse Practitioner Family
DX: Z12.31 Encounter for screening mammogram for malignant neoplasm of breast (principal)
CPT/HCPCS: 77063; 77067

== ENCOUNTER 2021-07-01 06:13 | Day surgery (SDC) | payer MEDICARE, SELFPAY ==
[2021-06-25 09:48] VITALS: BMI 16.7
--- NOTE | 2021-06-30 08:18 | HO.ANESPROP2 ---
Documented by User: Soo Orantes NP 06/30/21 08:28 HPI - Anesthesia Eval Consult details Narrative: 76yo F for Colonoscopy Xarelto for afib Pacer in situ PMFSH Active Problems Active Problems: All Active Problems (Updated 06/24/21 @ 16:14 by Loren Corrales RN) PAF (paroxysmal atrial fibrillation) (Acute) Pacemaker (Acute) Therapeutic drug monitoring (Acute) LFTs abnormal (Acute) Hypothyroid (Acute) Abnormal PFTs (pulmonary function tests) (Acute) Encounter for annual wellness exam in Medicare patient (Acute) Colon cancer screening (Acute) Osteoporosis screening (Acute) Breast cancer screening (Acute) Decreased hearing of both ears (Acute) Dizziness (Acute) Humerus shaft fracture (Acute) Acute radial nerve palsy of right upper extremity (Acute) Fracture of humeral shaft, right, closed (Acute) Positive colorectal cancer screening using Cologuard test (Acute) Distal radius fracture, left (Acute) Hypertension (Acute) Dyspnea on exertion (Acute) Restrictive lung disease (Acute) Hypercholesterolemia (Acute) Chronic kidney disease (Acute) Past Medical History Medical History (Updated 06/24/21 @ 16:14 by Loren Corrales RN) Chronic kidney disease Dyspnea on exertion Fatty liver History of atrial fibrillation History of shingles Hx of tachycardia-bradycardia syndrome Hypercholesterolemia Hypothyroid Pacemaker Restrictive lung disease T12 compression fracture Family History Family History Father No problems noted. Mother No problems noted. Brother Prostate cancer Sister No problems noted. Son No problems noted. Daughter No problems noted. Other Mental health disorder Substance use disorder Surgical History Surgical History (Updated 06/24/21 @ 16:13 by Loren Corrales RN) History of back surgery History of lumpectomy of right breast History of open reduction and internal fixation (ORIF) procedure History of permanent cardiac pacemaker placement Hx of colonoscopy Social History Social History Housing: House Alcohol intake: current Alcohol intake frequency: a few times a week Patient Tobacco Use Status: Former Tobacco user Quit Date: 1981 Tobacco use type: Cigarette Years Smoked: 18 Smoked in Last 30 Days: No e-Cigarette/Vaping Use: Never Used Second Hand Smoke Exposure: No Use of substances other than those prescribed or required for medical reasons: No Are you DNR?: No Advance Directives: No Advance Directives Information Provided: Yes service: No Current occupational status: retired Current occupation: right handed Current occupational exposures/hazards: No Meds Allergies Allergy/AdvReac Type Severity Reaction Status Date / Time No Known Allergies Allergy Verified 07/01/21 06:19 [No Known Allergies*] Home Medications Medication Instructions Recorded Confirmed Last Taken Type cholecalciferol (vitamin D3) 25 25 mcg PO DAILY 08/12/20 06/24/21 Unknown History mcg (1,000 unit) capsule cyanocobalamin (vitamin B-12) mcg PO DAILY 08/12/20 06/17/21 Unknown History 1,000 mcg capsule multivitamin 1 tab PO DAILY 08/12/20 06/24/21 Unknown History Exam Exam Date and Time: June 30, 202118 Height,Weight and Vital Signs: Height 4 ft 11.5 in Weight 38.102 kg Pertinent Lab Results Pertinent Lab Results: Laboratory Tests 03/29/21 03/29/21 21:54 21:54 WBC 13.8 H Hgb 13.8 Hct 40.3 Plt Count 194 Sodium 137 Potassium 3.8 Chloride 102 Carbon Dioxide 21 L BUN 16 Creatinine 1.05 Narrative Narrative: Cardiac Device Check Details: 06/05/21 Frequent episodes of mode switching from Afib. [id number] Cardiac Device Interrogation, pacemaker Biotronik dual-chamber pacemaker.? Mode DDDR.? Battery life 6 years 1 month.? No significant atrial arrhythmia.? Sensing and thresholds within normal limits. Functioning fine per Dr Santiago note EKG 07/2020 Atrial paced V sensed rhythm 55/min, normal axis, anterior T wave inversions (new compared to 2017), QTC 470 msec Assessment and Plan Assessment Anesthesia Assessment: Chart Reviewed Documented by User: Elmo Beltran 07/01/21 07:30 [facility] Past Medical History Medical History (Updated 06/24/21 @ 16:14 by Loren Corrales RN) Chronic kidney disease Dyspnea on exertion Fatty liver History of atrial fibrillation History of shingles Hx of tachycardia-bradycardia syndrome Hypercholesterolemia Hypothyroid Pacemaker Restrictive lung disease T12 compression fracture Family History Family History Father No problems noted. Mother No problems noted. Brother Prostate cancer Sister No problems noted. Son No problems noted. Daughter No problems noted. Other Mental health disorder Substance use disorder Family history of problems with anesthesia: No Surgical History Surgical History (Updated 06/24/21 @ 16:13 by Loren Corrales RN) History of back surgery History of lumpectomy of right breast History of open reduction and internal fixation (ORIF) procedure History of permanent cardiac pacemaker placement Hx of colonoscopy History of Problems with Anesthesia: No Social History Social History Housing: House Alcohol intake: current Alcohol intake frequency: a few times a week Patient Tobacco Use Status: Former Tobacco user Quit Date: 1981 Tobacco use type: Cigarette Years Smoked: 18 Smoked in Last 30 Days: No e-Cigarette/Vaping Use: Never Used Second Hand Smoke Exposure: No Use of substances other than those prescribed or required for medical reasons: No Are you DNR?: No Advance Directives: No Advance Directives Information Provided: Yes service: No Current occupational status: retired Current occupation: right handed Current occupational exposures/hazards: No Meds Allergies Allergy/AdvReac Type Severity Reaction Status Date / Time No Known Allergies Allergy Verified 07/01/21 06:19 [No Known Allergies*] Home Medications Medication Instructions Recorded Confirmed Last Taken Type cholecalciferol (vitamin D3) 25 25 mcg PO DAILY 08/12/20 06/24/21 Unknown History mcg (1,000 unit) capsule cyanocobalamin (vitamin B-12) mcg PO DAILY 08/12/20 06/17/21 Unknown History 1,000 mcg capsule multivitamin 1 tab PO DAILY 08/12/20 06/24/21 Unknown History Exam Airway Mallampati Class: II Neck ROM: Full Loose/Missing/Broken Teeth: Yes (Implant ) Heart: S1 S2 Lungs: bl breath sounds Assessment and Plan Assessment Anesthesia Assessment: Anesthesia Plan Discussed Final Anesthetic Review Family History of Problems with Anesthesia: No History of Problems with Anesthesia: No NPO: Yes ASA Class: III Final Preanesthetic Review: Meds/Allgs Chart Reviewed, Consent Obtained/Reviewed and Anes Risks/Benef Reviewed Patient Risk: High Procedure Risk: Intermediate Anesthetic Plan Anesthetic Plan: MAC: Disposition: Standard PACU
[2021-07-01 06:31] VITALS: BMI 17.4
[2021-07-01 06:32] VITALS: BP 132/75; PULSE 62; RESP 16; TEMP 36.6; O2SAT 99
[2021-07-01] MEDS: Lactated Ringers 1,000 ML 100 ML IVCONT (06:45)
--- NOTE | 2021-07-01 07:28 | P.HPSUR_ITS ---
Pre-Procedural Eval Section A Date of Service: 07/01/21 Section B Chief Complaint: fecal abnormalities Details of Present Illness: see H&P no changes Relevant Family History (Specify if Yes): No Relevant Social History: None Present Medications: see Short Stay Collaborative assessment Medical History: No relevant PMH History of Previous Operations: No relevant previous surgery Allergies: Allergies Allergy/AdvReac Type Severity Reaction Status Date / Time No Known Allergies Allergy Verified 07/01/21 06:19 [No Known Allergies*] Review of Systems Sugical H&P ROS: Negative: Constitution, Cardiovascular, Respiratory, Neurologi toya, Psychiatric, Hem-Onc, Allergic/Immunologic, Gastrointestinal, Genitourinary, Musculoskeletal, Integumentary, Endocrine and Eyes/Ears/Nose/Throat Exam Surgical H&P Exam: Normal: HEENT, Normal: Heart, Normal: Lungs, Normal: Extremities, Normal: Abdomen, Normal: Skin and Normal: Neurological Plan Diagnosis/Plan: Unchanged I have reviewed the history and physical and performed a pertinent physical examination on my patient. No changes have occurred unless specified.
--- NOTE | 2021-07-01 08:06 | P.BOP_ITS ---
Brief Operative Note Date of Service: 07/01/21 Pre-op diagnosis: abnormal stool test Post-op diagnosis: same (colon polyps) Procedure: colonoscopy Surgeon: Petr Rainey Anesthesia: MAC Was an Child And Adolescent Therapist used for this Procedure?: No Estimated blood loss (mL): 5 Pathology: other (polyps x 3) Condition: stable Disposition: PACU
[2021-07-01 08:10] VITALS: BP 127/50; PULSE 66; RESP 16; TEMP 36.9; O2SAT 97
[2021-07-01 08:25] VITALS: BP 119/61; PULSE 60; RESP 16; TEMP 36.9; O2SAT 97
--- NOTE | 2021-07-01 08:32 | OP_ITS ---
SURGEON: Petr Rainey MD INDICATIONS: Abnormal findings in stool. PREOPERATIVE DIAGNOSIS: POSTOPERATIVE DIAGNOSIS: PROCEDURE PERFORMED: Colonoscopy to the terminal ileum with biopsy and snare polypectomy. ESTIMATED BLOOD LOSS: COMPLICATIONS: ANESTHESIA: Medications, monitored anesthesia care. ASSISTANTS: SPECIMENS: DESCRIPTION OF PROCEDURE: History and physical was performed. The risks and benefits of the procedure were explained to the patient. Informed consent was obtained. The patient was placed in the left lateral decubitus position. A digital rectal exam was performed and was found to be normal. The Olympus pediatric video colonoscope was introduced into the rectum and advanced to the cecum without difficulty. The cecum was identified by transillumination, palpation, and identification of ileocecal valve. Examination was performed. The scope was removed. She tolerated the procedure well and was transferred to the recovery area in stable condition. FINDINGS: Limited views of the terminal ileum were within normal limits. The visualized colonic mucosa was within normal limits without evidence of masses or ulcers. A total of 3 polyps were identified, all were less than 10 mm. The first at 50 cm was less than 5 mm and was removed with a biopsy forceps. The second 2 were located at 30 and 25 cm were removed with a cold snare and recovered via suction. No other polyps were identified. The quality of prep was good. There was mild sigmoid diverticulosis with scattered diverticula throughout the remainder of the colon. Retroflexed examination showed moderate-sized internal hemorrhoids. IMPRESSION: Colon polyps. RECOMMENDATION: Follow up the biopsy results. MD CORNELIA Gandhi/NATHAN / [id number]
== END 2021-07-01 09:19 | disposition home or self-care (01) ==
PROVIDERS: PCP Internal Medicine; Visit Provider Internal Medicine Gastroenterology
PROC: 0DJD8ZZ Inspection of Lower Intestinal Tract, Via Natural or Artificial Opening Endoscopic (ICD-10-PCS; CPT 45378; principal; 2021-07-01 07:30)
DX: R19.5 Other fecal abnormalities (principal); D12.5 Benign neoplasm of sigmoid colon; K57.30 Diverticulosis of large intestine without perforation or abscess without bleeding; K64.8 Other hemorrhoids; I10 Essential (primary) hypertension; E78.00 Pure hypercholesterolemia, unspecified; M81.0 Age-related osteoporosis without current pathological fracture; R00.1 Bradycardia, unspecified; Z95.0 Presence of cardiac pacemaker; I48.91 Unspecified atrial fibrillation; Z87.891 Personal history of nicotine dependence; R79.89 Other specified abnormal findings of blood chemistry; Z79.899 Other long term (current) drug therapy; Z79.01 Long term (current) use of anticoagulants
CPT/HCPCS: 45385; 45380; 88305

== ENCOUNTER 2021-07-04 07:08 | Outpatient (REF) | payer MEDICARE, SELFPAY ==
--- NOTE | ~2021-07-04 | XR_ITS ---
EXAMINATION: RIGHT SHOULDER X-RAYS-3 VIEWS AND RIGHT HUMERUS X-RAYS-2 VIEWS CLINICAL INFORMATION: Humeral fracture. COMPARISON: 05/29/2021 TECHNIQUE: Frontal and lateral radiographs were acquired of the right humerus. 3 views were acquired of the right shoulder. FINDINGS: There is a oblique overriding fracture of the midshaft of the right humerus, with at least 15 mm of overriding and shortening of the right humeral length. Callus formation has increased indicative of healing, but the fracture is still well seen as a lucency. Further cephalad, there is a nondisplaced healing fracture of the proximal third of the humeral shaft, with greater sclerosis indicating healing. Examination of the right shoulder demonstrates narrowing between the acromion process and humeral head but no acute fracture or dislocation of the right shoulder is detected. Mild acromioclavicular degenerative changes are present. The glenohumeral joint is located. XR/XR humerus RT IMPRESSION: 1. Healing oblique overriding fracture of the midshaft of the right humerus and healing nondisplaced spiral fracture of the proximal third of the right humeral shaft. 2. Narrowing of the shoulder outlet, suggestive of underlying chronic rotator cuff tear, but no acute fracture or dislocation of the right shoulder.
--- NOTE | ~2021-07-04 | XR_ITS ---
EXAMINATION: RIGHT SHOULDER X-RAYS-3 VIEWS AND RIGHT HUMERUS X-RAYS-2 VIEWS CLINICAL INFORMATION: Humeral fracture. COMPARISON: 05/29/2021 TECHNIQUE: Frontal and lateral radiographs were acquired of the right humerus. 3 views were acquired of the right shoulder. FINDINGS: There is a oblique overriding fracture of the midshaft of the right humerus, with at least 15 mm of overriding and shortening of the right humeral length. Callus formation has increased indicative of healing, but the fracture is still well seen as a lucency. Further cephalad, there is a nondisplaced healing fracture of the proximal third of the humeral shaft, with greater sclerosis indicating healing. Examination of the right shoulder demonstrates narrowing between the acromion process and humeral head but no acute fracture or dislocation of the right shoulder is detected. Mild acromioclavicular degenerative changes are present. The glenohumeral joint is located. XR/XR shoulder RT min 2V IMPRESSION: 1. Healing oblique overriding fracture of the midshaft of the right humerus and healing nondisplaced spiral fracture of the proximal third of the right humeral shaft. 2. Narrowing of the shoulder outlet, suggestive of underlying chronic rotator cuff tear, but no acute fracture or dislocation of the right shoulder.
== END 2021-07-04 07:09 | disposition home or self-care (01) ==
LOC: HO.HOSX 07:08
PROVIDERS: Visit Provider Physician Assistant
DX: S42.301D Unspecified fracture of shaft of humerus, right arm, subsequent encounter for fracture with routine healing (principal); G56.31 Lesion of radial nerve, right upper limb
CPT/HCPCS: 73030; 73060; 99212

== ENCOUNTER 2021-07-09 09:00 | Outpatient (RCR) | payer MEDICARE, SELFPAY ==
--- NOTE | 2021-06-26 10:51 | MHC.PT.EP ---
[facility] [place] Office [place] [facility] [place] [facility] [address] [phone] F: [phone] F: [phone] F: [phone] F: [phone] Physical Therapy Plan of Care Date of Evaluation: 06/26/2021 Date of Surgery: Diagnosis: fx of shaft of humerus, right arm in March 2021 Assessment: The patient arrived with decreased ROM, strength, functional mobility as expected following this injury. The patient has some thoracic tightness that will also be addressed. She has pain and limitation at end range. Shoulder internal rotation is more limited than ER. Overall poor strength and muscular endurance. The patient is a good candidate for skilled PT to address her current impairments. Frequency and Duration: The patient will be seen 2x/week x 4 weeks Short Term Goals: 1. The patient will have improved sitting posture to facilitate improved ROM. 2. Pt to be able to report 50% improvement in functional reaching. 3. Pt to be able to report 50% less pain with getting dressed. Senior Care Goals: 4 weeks - The patient to have greater than 160 degrees of flexion and abduction to show improved functional ROM. 4 weeks ? The patient to have 5/5 strength with flexion and abduction to demonstrate functional strength 4 weeks ? The patient to be able to return to all functional reaching, self care ADL's without any limitation from pain or loss of ROM. Treatment Plan: Modalities to reduce pain, spasms and effusion. Manual therapy to restore motion and function. Therapeutic exercise to improve strength and flexibility. Neuromuscular re-education for posture and balance. Therapeutic activities to return to functional activities of daily living. Electronically signed by: Suzanne Lowe PT DPT Please sign and return to therapist. Thank you for your referral.
== END 2021-11-28 10:51 | disposition home or self-care (01) ==
LOC: HO.PT 09:00
PROVIDERS: Visit Provider Internal Medicine
DX: S42.301D Unspecified fracture of shaft of humerus, right arm, subsequent encounter for fracture with routine healing (principal)
CPT/HCPCS: 97110; 97162

== ENCOUNTER 2021-08-12 10:00 | Outpatient (RCR) | payer MEDICARE, SELFPAY ==
--- NOTE | 2021-08-12 12:57 | MHC.OT.DC ---
[address] [phone] F: [phone] Occupational Therapy Discharge Note Provider: Mery Villar PA-C Diagnosis: Right humeral shaft fracture Date of Surgery: Date of Evaluation: 07/21/21 Date of Discharge: 08/12/21 Treatments to Date: 6 Cancellations to Date: 1 No Shows to Date: Discharge Status: Achieved Goals Improved Function Independent with HEP Patient Elected to Stop Discharge Summary: Good improvement in wrist strength and function to WFL, Able to maintain wrist ext with a forceful account planner . Continued low account planner (inc to 5 lb ) and pinch strength and weak thumb ext. Pt is indep with her HEP using Theraband loops and independent with a graded hand gripper She reports inc ease with daily activities and prefers continuing therapy on her own at home. Electronically Signed By: Luisa Leon OT CHT CLT Reviewed/agree with student documentation: N/A Therapist: Please Sign and return to therapist, thank you for your referral.
== END 2021-08-12 12:58 | disposition home or self-care (01) ==
LOC: HO.OT 10:00
PROVIDERS: Visit Provider Physician Assistant
DX: G56.31 Lesion of radial nerve, right upper limb (principal); S42.301A Unspecified fracture of shaft of humerus, right arm, initial encounter for closed fracture
CPT/HCPCS: 97110; 97167

== ENCOUNTER 2021-08-20 07:45 | Outpatient (REF) | payer MEDICARE, SELFPAY ==
--- NOTE | ~2021-08-20 | MM_ITS ---
EXAMINATION: BONE DENSITOMETRY CLINICAL INDICATION: Screening for osteoporosis. COMPARISON: None (current study represents initial baseline exam). TECHNIQUE: Using a [employer] DXA System (software version: 13.1) manufactured by [employer], dual-energy x-ray absorptiometry was performed of the lumbar spine and left hip. The images are of good technical quality. Summary results are attached. FINDINGS: AP SPINE L2-L3 (excluding L1 and L4): The data of L1-L4 has been changed to exclude the L1 due to 2 compression fracture and L4 due to compression fracture with vertebral augmentation. BMD 0.657 g/cm2, Z-score -1.9, T-score -4.5, osteoporosis. LEFT FEMUR, NECK: BMD 0.473 g/cm2, Z-score -1.6, T-score -4.1, osteoporosis. LEFT FEMUR, TOTAL: BMD 0.536 g/cm2, Z-score -1.4, T-score -3.7, osteoporosis. IDENTIFIED RISK FACTORS: Menopause, height loss, history of fracture (adult), osteoporosis, renal. HISTORY OF FRACTURE: Humerus, spine, wrist. MEDICATIONS: Calcium, vitamin D. MM/XR DEXA axial skeleton IMPRESSION: 1. DIAGNOSIS: Severe osteoporosis based on the lowest T-score value of -4.5 in the lumbar spine and history of spinal compression fractures applying World Health Organization criteria. 2. 10-YEAR FRACTURE RISK PREDICTION, FRAX: According to the guidelines, FRAX calculation should only be performed on patients in the osteopenia bone density category. Therefore, FRAX was not performed on this patient. 3. Treatment Recommendations: NOF guidelines recommend consideration for treatment in postmenopausal women and men age 50 and older presenting with the following: -A hip or vertebral (clinical or morphometric) fracture. -T-score less than or equal to -2.5 at the femoral neck or spine after appropriate evaluation to exclude secondary causes. -Low bone mass at the hip or spine and a 10-year fracture probability by FRAX of greater than or equal to 3% for hip fracture or greater than or equal to 20% for major osteoporotic fracture based on the [place] adapted WHO algorithm. 4. Other Recommendations: All treatment decisions require clinical judgment and consideration of individual patient factors, including patient preferences, comorbidities, previous drug use, risk factors not captured in the FRAX model (e.g. frailty, falls, vitamin D deficiency, increased bone turnover, interval significant decline in bone density) and possible under or overestimation of fracture risk by FRAX. Additional medical evaluation for secondary cause of low bone mineral density may be appropriate. FUTURE SCAN RECOMMENDATION: People with diagnosed cases of osteoporosis or at high risk for fracture should have regular bone mineral density tests. For patients eligible for Medicare, routine testing is allowed once every 2 years. The testing frequency can be increased to one year for patients who have rapidly progressing disease, those who are receiving or discontinuing medical therapy to restore bone mass, or have additional risk factors.
== END 2021-08-20 07:46 | disposition home or self-care (01) ==
LOC: HO.MAMMO 07:45
PROVIDERS: PCP Internal Medicine; Visit Provider Nurse Practitioner Family
DX: Z13.820 Encounter for screening for osteoporosis (principal); Z78.0 Asymptomatic menopausal state; M81.0 Age-related osteoporosis without current pathological fracture
CPT/HCPCS: 77080

== ENCOUNTER → 2021-09-15 13:18 | Outpatient (BNVA) | payer MEDICARE, SELFPAY | PROVIDERS: PCP Internal Medicine; Referring Provider Internal Medicine; Visit Provider Internal Medicine Cardiovascular Disease | DX: I48.0 Paroxysmal atrial fibrillation (principal); I10 Essential (primary) hypertension; Z79.01 Long term (current) use of anticoagulants; Z95.0 Presence of cardiac pacemaker | CPT/HCPCS: 93005; 99212 ==

== ENCOUNTER 2021-11-05 08:12 | Outpatient (REF) | payer MEDICARE, SELFPAY ==
[2021-11-05 08:27] LABS: MANUAL DIFF FLAG NO
[2021-11-05 08:57] LABS: Basophils Percent Auto 0.5 % (0-2); Eosinophils Absolute Auto 0.2 X10*3/uL (0.0-0.4); Eosinophils Percent Auto 2.6 % (0-4); Hematocrit 41.1 % (37.0-47.0); Hemoglobin 13.8 g/dl (12.0-16.0); Imm Gran Abs Auto 0.03 X10*3/uL (0.00-0.03); Imm Gran Pct Auto 0.4 % (0.0-0.4); Lymphocytes Absolute Auto 1.6 X10*3/uL (1.2-4.9); Lymphocytes Percent Auto 20.6 % (20-40); Mean Corpuscular HGB Conc 33.6 g/dl (31.0-35.0); Mean Corpuscular Hemoglobin 32.5 pg (27.0-33.0); Mean Corpuscular Volume 96.9 fL (80.0-98.0); Mean Platelet Volume 10.4 fL (9.4-12.3); Monocytes Absolute Auto 0.8 X10*3/uL (0.1-1.2); Monocytes Percent Auto 9.6 % (2-11); Neutrophils Absolute Auto 5.2 x10*3/uL (2.0-8.3); Neutrophils Percent Auto 66.3 % (45-73); Platelet Count 199 X10*3/uL (160-400); Red Blood Count 4.24 X10*6/uL (4.20-5.50); Red Cell Distribution Width 12.1 % (11.0-16.0); White Blood Count 7.8 X10*3/uL (4.8-10.8)
[2021-11-05 09:15] LABS: Alanine Aminotransferase 21 U/L (0-31); Alkaline Phosphatase 64 U/L (39-117); Anion Gap 10 (12-20); Aspartate Amino Transferase 24 U/L (5-31); Bilirubin Total 1.3 mg/dL (0.0-1.0); Blood Urea Nitrogen 25 mg/dL (9-16); Calcium 8.6 mg/dL (8.4-10.2); Carbon Dioxide 24 mmol/L (22-29); Chloride 111 mmol/L (96-108); Cholesterol 155 mg/dL; Estimated Glomerular Filt Rate > 60; Glucose Random 89 mg/dL (60-115); HDL Cholesterol 76 mg/dL; LDL Cholesterol Calculated 66 mg/dl; Potassium 4.2 mmol/L (3.3-5.1); Sodium 141 mmol/L (135-145); Total Protein 6.9 g/dL (6.5-8.0); Triglycerides 69 mg/dL
[2021-11-05 09:20] LABS: B Type Natriuretic Peptide 76 pg/mL (<100)
[2021-11-05 09:37] LABS: Free T4 (Free Thyroxine) 1.12 ng/dL (0.71-1.85); Thyroid Stimulating Hormone 0.08 uIU/mL (0.32-4.0); Vitamin D 25-OH Total 54.8 ng/mL (>30)
[2021-11-05 09:43] LABS: Estimated Average Glucose 100 mg/dL; Hemoglobin A1c % 5.1 %
[2021-11-05 10:01] LABS: Folate 19.3 ng/mL (> or = 4.0); Vitamin B12 636 pg/mL (200-900)
== END 2021-11-05 08:13 | disposition home or self-care (01) ==
LOC: HO.LAB 08:12
PROVIDERS: PCP Internal Medicine; Visit Provider Internal Medicine
DX: E78.00 Pure hypercholesterolemia, unspecified (principal); I48.0 Paroxysmal atrial fibrillation; I10 Essential (primary) hypertension; R73.01 Impaired fasting glucose; M81.0 Age-related osteoporosis without current pathological fracture
CPT/HCPCS: 36415; 80053; 80061; 82306; 82607; 82746; 83036; 83880; 84439; 84443; 85025

== ENCOUNTER 2022-02-05 08:46 | Outpatient (REF) | payer MEDICARE, SELFPAY ==
[2022-02-05 09:07] LABS: MANUAL DIFF FLAG NO
[2022-02-05 09:25] LABS: Basophils Absolute Auto 0.1 X10*3/uL (0.0-0.2); Basophils Percent Auto 0.8 % (0-2); Eosinophils Absolute Auto 0.2 X10*3/uL (0.0-0.4); Eosinophils Percent Auto 2.6 % (0-4); Hematocrit 43.7 % (37.0-47.0); Hemoglobin 14.9 g/dl (12.0-16.0); Imm Gran Abs Auto 0.03 X10*3/uL (0.00-0.03); Imm Gran Pct Auto 0.4 % (0.0-0.4); Lymphocytes Absolute Auto 1.6 X10*3/uL (1.2-4.9); Lymphocytes Percent Auto 22.1 % (20-40); Mean Corpuscular HGB Conc 34.1 g/dl (31.0-35.0); Mean Corpuscular Hemoglobin 32.7 pg (27.0-33.0); Mean Platelet Volume 10.4 fL (9.4-12.3); Monocytes Absolute Auto 0.7 X10*3/uL (0.1-1.2); Monocytes Percent Auto 9.2 % (2-11); Neutrophils Absolute Auto 4.8 x10*3/uL (2.0-8.3); Neutrophils Percent Auto 64.9 % (45-73); Platelet Count 211 X10*3/uL (160-400); Red Blood Count 4.55 X10*6/uL (4.20-5.50); Red Cell Distribution Width 12.1 % (11.0-16.0); White Blood Count 7.4 X10*3/uL (4.8-10.8)
[2022-02-05 09:34] LABS: Estimated Average Glucose 100 mg/dL; Hemoglobin A1c % 5.1 %
[2022-02-05 10:01] LABS: Alanine Aminotransferase 26 U/L (0-31); Albumin Level 4.3 g/dL (3.5-5.0); Alkaline Phosphatase 61 U/L (39-117); Anion Gap 16 (12-20); Aspartate Amino Transferase 26 U/L (5-31); Bilirubin Total 1.5 mg/dL (0.0-1.0); Blood Urea Nitrogen 19 mg/dL (9-16); Calcium 9.4 mg/dL (8.4-10.2); Carbon Dioxide 23 mmol/L (22-29); Chloride 108 mmol/L (96-108); Cholesterol 167 mg/dL; Estimated Glomerular Filt Rate > 60; Glucose Fasting 98 mg/dL (60-99); HDL Cholesterol 78 mg/dL; LDL Cholesterol Calculated 75 mg/dl; Potassium 3.9 mmol/L (3.3-5.1); Sodium 143 mmol/L (135-145); Total Protein 7.5 g/dL (6.5-8.0); Triglycerides 72 mg/dL
[2022-02-05 10:08] LABS: Free T4 (Free Thyroxine) 1.09 ng/dL (0.71-1.85); TSH reflex Free T4 0.33 uIU/mL (0.32-4.0); Thyroid Stimulating Hormone 0.34 uIU/mL (0.32-4.0)
== END 2022-02-05 08:47 | disposition home or self-care (01) ==
LOC: HO.LAB 08:46
PROVIDERS: Nurse Practitioner Family; PCP Internal Medicine; Visit Provider Internal Medicine
DX: I12.9 Hypertensive chronic kidney disease with stage 1 through stage 4 chronic kidney disease, or unspecified chronic kidney disease (principal); N18.9 Chronic kidney disease, unspecified; E11.22 Type 2 diabetes mellitus with diabetic chronic kidney disease; E03.9 Hypothyroidism, unspecified; E78.00 Pure hypercholesterolemia, unspecified; R94.5 Abnormal results of liver function studies
CPT/HCPCS: 36415; 80053; 80061; 83036; 84439; 84443; 85025

== ENCOUNTER 2022-02-06 08:00 | Outpatient (REF) | payer MEDICARE, SELFPAY ==
[2022-02-06 10:33] LABS: Creatinine Urine 5.17 mg/dL
== END 2022-02-06 08:01 | disposition home or self-care (01) ==
LOC: HO.LNP 08:00
PROVIDERS: Visit Provider Nurse Practitioner Family
DX: N18.9 Chronic kidney disease, unspecified (principal); E03.9 Hypothyroidism, unspecified; E11.9 Type 2 diabetes mellitus without complications; E78.00 Pure hypercholesterolemia, unspecified; R94.5 Abnormal results of liver function studies
CPT/HCPCS: 82043

== ENCOUNTER → 2022-03-19 10:01 | Outpatient (BNVA) | payer MEDICARE, SELFPAY | PROVIDERS: PCP Internal Medicine; Referring Provider Internal Medicine; Visit Provider Internal Medicine Cardiovascular Disease | DX: I48.0 Paroxysmal atrial fibrillation (principal); I10 Essential (primary) hypertension; Z95.0 Presence of cardiac pacemaker | CPT/HCPCS: 99212 ==

== ENCOUNTER 2022-06-09 08:03 | Outpatient (REF) | payer MEDICARE, SELFPAY ==
--- NOTE | ~2022-06-09 | MM_ITS ---
EXAMINATION: MM SCREENING DIGITAL BREAST TOMOSYNTHESIS, BILATERAL CLINICAL INFORMATION: Screening. Asymptomatic. The lifetime risk of breast cancer based on the Tyrer-Cuzick Model is 2%. COMPARISON: Mammography: 11/03/2021; outside mammography 05/29/2020, 04/17/2020, 01/02/2019 ([facility]) TECHNIQUE: Digital breast tomosynthesis is performed in both the craniocaudal and mediolateral oblique views along with computer-aided detection (CAD). Synthesized 2D images are generated from the tomosynthesis. FINDINGS: The breasts are heterogeneously dense, which may obscure small masses (ACR BI-RADS breast composition Category c). There are no significant masses, abnormal calcifications, or other abnormalities. Parenchymal pattern is similar to prior studies. There is no developing density or architectural abnormality. There is a biopsy clip marker central anterior 12:00 right breast. Pacemaker generator overlies and partly obscures the posterior upper outer left breast. The axilla and skin contours are unremarkable. No significant changes. MM/MM tomosynthesis screening BI IMPRESSION: No mammographic evidence of malignancy. ASSESSMENT: BI-RADS 2: Benign RECOMMENDATION: Routine annual mammography screening. This patient's information was entered into a reminder system with a target due date for their next mammogram.
== END 2022-06-09 08:04 | disposition home or self-care (01) ==
LOC: HO.MAMMO 08:03
PROVIDERS: Visit Provider Internal Medicine
DX: Z12.31 Encounter for screening mammogram for malignant neoplasm of breast (principal)
CPT/HCPCS: 77063; 77067

== ENCOUNTER 2022-09-10 09:39 | Outpatient (REF) | payer MEDICARE, SELFPAY ==
[2022-09-10 09:52] LABS: MANUAL DIFF FLAG NO
[2022-09-10 10:52] LABS: Basophils Percent Auto 0.5 % (0-2); Eosinophils Absolute Auto 0.1 X10*3/uL (0.0-0.4); Eosinophils Percent Auto 1.4 % (0-4); Hematocrit 45.5 % (37.0-47.0); Hemoglobin 15.1 g/dl (12.0-16.0); Imm Gran Abs Auto 0.03 X10*3/uL (0.00-0.03); Imm Gran Pct Auto 0.4 % (0.0-0.4); Lymphocytes Absolute Auto 1.7 X10*3/uL (1.2-4.9); Lymphocytes Percent Auto 21.3 % (20-40); Mean Corpuscular HGB Conc 33.2 g/dl (31.0-35.0); Mean Corpuscular Hemoglobin 32.8 pg (27.0-33.0); Mean Corpuscular Volume 98.7 fL (80.0-98.0); Monocytes Absolute Auto 0.7 X10*3/uL (0.1-1.2); Monocytes Percent Auto 8.2 % (2-11); Neutrophils Absolute Auto 5.5 x10*3/uL (2.0-8.3); Neutrophils Percent Auto 68.2 % (45-73); Platelet Count 215 X10*3/uL (160-400); Red Blood Count 4.61 X10*6/uL (4.20-5.50); Red Cell Distribution Width 12.2 % (11.0-16.0)
[2022-09-10 11:28] LABS: Alanine Aminotransferase 28 U/L (0-31); Albumin Level 4.2 g/dL (3.5-5.0); Alkaline Phosphatase 62 U/L (39-117); Anion Gap 12 (12-20); Aspartate Amino Transferase 27 U/L (5-31); Bilirubin Total 2.1 mg/dL (0.0-1.0); Blood Urea Nitrogen 19 mg/dL (9-16); Calcium 9.5 mg/dL (8.4-10.2); Carbon Dioxide 28 mmol/L (22-29); Chloride 107 mmol/L (96-108); Estimated Glomerular Filt Rate > 60; Glucose Random 102 mg/dL (60-115); Potassium 4.3 mmol/L (3.3-5.1); Sodium 143 mmol/L (135-145); Total Protein 7.1 g/dL (6.5-8.0)
[2022-09-10 11:31] LABS: Thyroid Stimulating Hormone 0.37 uIU/mL (0.32-4.0)
== END 2022-09-10 09:40 | disposition home or self-care (01) ==
LOC: HO.LAB 09:39
PROVIDERS: PCP Internal Medicine; Visit Provider Internal Medicine
DX: I48.0 Paroxysmal atrial fibrillation (principal)
CPT/HCPCS: 36415; 80053; 84443; 85025

== ENCOUNTER → 2022-11-02 10:37 | Outpatient (BNVA) | payer MEDICARE, SELFPAY | PROVIDERS: PCP Internal Medicine; Referring Provider Internal Medicine; Visit Provider Internal Medicine Cardiovascular Disease | DX: I48.0 Paroxysmal atrial fibrillation (principal); I10 Essential (primary) hypertension | CPT/HCPCS: 93005; 99212 ==

== ENCOUNTER → 2022-11-04 08:41 | Outpatient (REF) | payer MEDICARE, SELFPAY ==
--- NOTE | 2022-11-04 08:43 | CA_ITS ---
Transthoracic Echocardiogram Patient (Last, First, Middle): Luzma Fraga A Gender: Female Date of : 1945 Age: 77 Procedure Date: 11/04/2022 Procedure Type: Transthoracic Echocardiogram Location: OP Height: 149.86 cm Weight: 46.27 kg BSA: 1.39 m2 Heart Rate: bpm BP: 116 / 66 mmHg Factory Superintendent: Referring MD: Levon Santiago MD Gum Puller: Levon Santiago MD Symptoms: I48.0 - Paroxysmal atrial fibrillation Study Quality: Good ECG Rhythm: Sinus Conclusions: - Normal left ventricular size and systolic function. There is mildly increased left ventricular wall thickness. The visually estimated ejection fraction is between 55-60%. - Diastolic function is normal for age. Global longitudinal strain is normal -20%. - Normal right ventricular cavity size and systolic function. - There is mild to moderate tricuspid valve regurgitation. Normal right atrial pressure. There is no evidence of pulmonary hypertension. Findings Left Ventricle Normal left ventricular size and systolic function. There is mildly increased left ventricular wall thickness. The visually estimated ejection fraction is between 55-60%. There is no evidence of regional wall motion abnormalities. Diastolic function is normal for age. Global longitudinal strain is normal 20%. Right Ventricle Normal right ventricular cavity size and systolic function. Atria The left atrium is normal in size. A pacemaker wire is identified in the right atrium. Aortic Valve There is a normal trileaflet aortic valve. There is no aortic valve stenosis. There is trace (trivial) aortic valve regurgitation. Mitral Valve Normal mitral valve structure and function. There is trace mitral valve regurgitation. There is no mitral valve stenosis. Pulmonic Valve Normal pulmonic valve structure and function. There is trace pulmonic valve regurgitation. Tricuspid Valve Normal tricuspid valve structure. There is mild to moderate tricuspid valve regurgitation. Normal right atrial pressure. There is no evidence of pulmonary hypertension. Great Vessels All visible segments of the aorta are normal in size. The visualized portions of the pulmonary artery and branches are normal. Venous The inferior vena cava is normal in size and collapses greater than 50% with inspiration. Pericardium/Pleural There is no evidence of pericardial effusion. Prior Study Comparison No significant change compared to prior study dated: 03/01/2017. Measurements 2D Linear Measurements IVSd: 0.98 0.6-0.9/0.6-1.0 cm LVIDd: 3.73 3.9-5.3/4.2-5.9 cm LVIDd Index: 2.68 2.4-3.2/2.2-3.1 cm/m2 LVIDs: 2.43 2.0-3.6 cm LVPWd: 1.00 0.7-1.1 cm Ao Root: 3.10 2.1-3.5 cm LA Diam: 3.50 2.7-3.8/3.0-4.0 cm LAIDs Index: 2.52 1.5-2.3 cm/m2 LV Mass: 139.75 67-162/88-224 g LV Mass Index: 100.54 43-95/49-115 g/m2 LVOT Diam: 2.00 3.0+(-)1.3 cm 2D Systolic Function EF 4C: 63.00 >55% EF 2C: 54.90 >55% EF BiP: 58.50 >55% Mitral Valve MV Pk E: 0.48 MV PK A: 0.92 MV Decel Time: 179.00 E/A: 0.50 E'Medial: 3.70 E/E' Med: 12.90 PHT: 53.00 MVA PHT: 4.15 Decel Morrow: 2.65 Aortic Valve AoV Pk Oseas: 0.96 AoV Mn Oseas: 0.66 AoV VTI: 0.27 AoV Pk Grad: 4.00 Aov Mn Grad: 2.00 TONYA Cont.VTI: 1.90 LVOT LVOT Pk Oseas: 0.68 LVOT Mn Oseas: 0.41 LVOT VTI: 0.16 LVOT Pk Grad: 2.00 LVOT Mn Grad: 1.00 LVOT Diam: 2.00 LVOT Area: 3.14 Diastolic Function MV Pk E: 0.48 MV Pk A: 0.92 E/A: 0.50 E'Medial: 3.70 E/E' Med: 12.90 Right Ventricle TAPSE (mm): 23.00 TVS' Oseas: 12.00 Tricuspid Valve TR Pk Oseas: 2.72 TR Pk Grad: 30.00 RA Press: 3.00 RVSP: 33.00 Great Vessels Aorta Ao Root-2D: 3.10 2.0-3.7 cm Ao Asc: 3.20 2.1-3.4 cm Pulmonary Valve PV Pk Oseas: 0.73 Peak PV Grad: 2.00 Updated in Other Vendor System with Status of Final Levon Santiago MD electronically signed on 11/04/2022 2:28:22 PM with status of Final
== END ==
LOC: HO.CARD 08:41
PROVIDERS: PCP Internal Medicine; Visit Provider Internal Medicine Cardiovascular Disease
DX: I48.0 Paroxysmal atrial fibrillation (principal)
CPT/HCPCS: 93306; 93356

== ENCOUNTER → 2022-11-27 23:59 | Outpatient (BNV) | payer MEDICARE, SELFPAY ==
--- NOTE | 2022-12-16 09:40 | MHC.OFFVIS ---
Intake Intake Visit Reasons: Remote Device Check- Biotronik Allergies No Known Allergies [No Known Allergies*] Allergy (Verified 11/02/22 10:44) PFSH Medical History (Updated 03/10/22 @ 12:20 by ALIA Corcoran) Abnormal PFTs (pulmonary function tests) Breast cancer screening Chronic kidney disease Colon cancer screening Decreased hearing of both ears Dizziness Dyspnea on exertion Encounter for annual wellness exam in Medicare patient Fatty liver History of atrial fibrillation History of shingles Humerus shaft fracture Hx of tachycardia-bradycardia syndrome Hypercholesterolemia Hypothyroid Osteoporosis screening Pacemaker Restrictive lung disease T12 compression fracture Surgical History History of back surgery History of lumpectomy of right breast History of open reduction and internal fixation (ORIF) procedure History of permanent cardiac pacemaker placement Hx of colonoscopy Family History Father No problems noted. Mother No problems noted. Brother Prostate cancer Sister No problems noted. Son No problems noted. Daughter No problems noted. Other Mental health disorder Substance use disorder Social History (Updated 11/02/22 @ 10:45 by NILA Ledesma) Housing: House Alcohol intake: current Alcohol intake frequency: a few times a week Patient Tobacco Use Status: Former Tobacco user Quit Date: 1981 Years Smoked: 18 +/- e-Cigarette/Vaping Use: Never Used Second Hand Smoke Exposure: No service: No Current occupational status: retired Current occupation: right handed Current occupational exposures/hazards: No Cognitive needs: No Hearing needs: No Vision needs: Yes Office Procedures Cardiac Device Check Cardiac Device Check Details: Biotronik pacemaker Battery 50%. RA sensing amplitude was temporarily below limit (<0.5 mV). We will arrange an in office interrogation. [id number] Cardiac Device Interrogation, pacemaker Procedure code (CPT) selection complete Assessment & Plan Assessment & Plan (1) Pacemaker: Code(s): Z95.0 - Presence of cardiac pacemaker Coding Level of Care Code Procedure Only Diagnoses Pacemaker Z95.0 CPT Codes Cardiac Device Check - Cardiac Device 12: [id number] Cardiac Device Interrogation, pacemaker ([id number])
== END ==
PROVIDERS: PCP Internal Medicine; Visit Provider Internal Medicine Cardiovascular Disease
DX: I48.0 Paroxysmal atrial fibrillation (principal); Z95.0 Presence of cardiac pacemaker
CPT/HCPCS: 93294

== ENCOUNTER → 2022-12-15 23:59 | Outpatient (BNV) | payer MEDICARE, SELFPAY ==
--- NOTE | 2022-12-28 14:28 | MHC.OFFVIS ---
Intake Intake Visit Reasons: Remote HF Monitoring- Biotronik Allergies No Known Allergies [No Known Allergies*] Allergy (Verified 11/02/22 10:44) PFSH Medical History (Updated 03/10/22 @ 12:20 by ALIA Corcoran) Abnormal PFTs (pulmonary function tests) Breast cancer screening Chronic kidney disease Colon cancer screening Decreased hearing of both ears Dizziness Dyspnea on exertion Encounter for annual wellness exam in Medicare patient Fatty liver History of atrial fibrillation History of shingles Humerus shaft fracture Hx of tachycardia-bradycardia syndrome Hypercholesterolemia Hypothyroid Osteoporosis screening Pacemaker Restrictive lung disease T12 compression fracture Surgical History History of back surgery History of lumpectomy of right breast History of open reduction and internal fixation (ORIF) procedure History of permanent cardiac pacemaker placement Hx of colonoscopy Family History Father No problems noted. Mother No problems noted. Brother Prostate cancer Sister No problems noted. Son No problems noted. Daughter No problems noted. Other Mental health disorder Substance use disorder Social History (Updated 11/02/22 @ 10:45 by NILA Ledesma) Housing: House Alcohol intake: current Alcohol intake frequency: a few times a week Patient Tobacco Use Status: Former Tobacco user Quit Date: 1981 Years Smoked: 18 +/- e-Cigarette/Vaping Use: Never Used Second Hand Smoke Exposure: No service: No Current occupational status: retired Current occupation: right handed Current occupational exposures/hazards: No Cognitive needs: No Hearing needs: No Vision needs: Yes Office Procedures Cardiac Device Check Cardiac Device Check Details: HF monitoring 3 episodes/day of atrial arrhythmia. Has known Afib. Stable thoracic impedance. [id number] Cardiac Device Interrogation, cardio physiologic monitor Procedure code (CPT) selection complete Assessment & Plan Assessment & Plan (1) Pacemaker: Code(s): Z95.0 - Presence of cardiac pacemaker Coding Level of Care Code Procedure Only Diagnoses Pacemaker Z95.0 CPT Codes Cardiac Device Check - Cardiac Device 15: [id number] Cardiac Device Interrogation, cardio physiologic monitor ([id number])
== END ==
PROVIDERS: PCP Internal Medicine; Visit Provider Internal Medicine Cardiovascular Disease
DX: I48.0 Paroxysmal atrial fibrillation (principal); Z95.0 Presence of cardiac pacemaker
CPT/HCPCS: 93297

== ENCOUNTER 2022-12-28 12:47 | Outpatient (AMB) | payer MEDICARE, SELFPAY ==
--- NOTE | 2022-12-28 14:04 | MHC.OFFVIS ---
Intake Intake Visit Reasons: BIOTRONIK PER KM IN OFFICE CHECK NEEDED Allergies No Known Allergies [No Known Allergies*] Allergy (Verified 11/02/22 10:44) PFSH Medical History (Updated 03/10/22 @ 12:20 by ALIA Corcoran) Abnormal PFTs (pulmonary function tests) Breast cancer screening Chronic kidney disease Colon cancer screening Decreased hearing of both ears Dizziness Dyspnea on exertion Encounter for annual wellness exam in Medicare patient Fatty liver History of atrial fibrillation History of shingles Humerus shaft fracture Hx of tachycardia-bradycardia syndrome Hypercholesterolemia Hypothyroid Osteoporosis screening Pacemaker Restrictive lung disease T12 compression fracture Surgical History History of back surgery History of lumpectomy of right breast History of open reduction and internal fixation (ORIF) procedure History of permanent cardiac pacemaker placement Hx of colonoscopy Family History Father No problems noted. Mother No problems noted. Brother Prostate cancer Sister No problems noted. Son No problems noted. Daughter No problems noted. Other Mental health disorder Substance use disorder Social History (Updated 11/02/22 @ 10:45 by NILA Ledesma) Housing: House Alcohol intake: current Alcohol intake frequency: a few times a week Patient Tobacco Use Status: Former Tobacco user Quit Date: 1981 Smoked: 18 +/- e-Cigarette/Vaping Use: Never Used Second Hand Smoke Exposure: No service: No Current occupational status: retired Current occupation: right handed Current occupational exposures/hazards: No Cognitive needs: No Hearing needs: No Vision needs: Yes Office Procedures Cardiac Device Check Cardiac Device Check Details: Biotronik permanent pacemaker. DDDR mode. Better life 5 years 2 months. Device was reprogrammed by Rep. Changed capture control from on 280 him due to unsuccessful testing at times. Changed RV output from 3 volts to 2.4 volts. A paced 49%. V paced 8%. Atrial arrhythmia burden 7%. [id number] Device Interrogation, pacemaker Procedure code (CPT) selection complete Assessment & Plan Assessment & Plan (1) Pacemaker: Code(s): Z95.0 - Presence of cardiac pacemaker Orders: Orders AMB Cardiac Device Follow-up Today Z95.0 - Presence of cardiac pacemaker Coding Level of Care Code Procedure Only Diagnoses Pacemaker Z95.0 CPT Codes Cardiac Device Check - Cardiac Device 8: [id number] Device Interrogation, pacemaker ([id number])
== END 2022-12-28 14:42 | disposition home or self-care (01) ==
PROVIDERS: PCP Internal Medicine; Referring Provider Internal Medicine; Visit Provider Internal Medicine Cardiovascular Disease
DX: I48.0 Paroxysmal atrial fibrillation (principal); Z45.018 Encounter for adjustment and management of other part of cardiac pacemaker; Z95.0 Presence of cardiac pacemaker
CPT/HCPCS: 93288; 93297

== ENCOUNTER → 2022-12-28 12:47 | Outpatient (BNVA) | payer MEDICARE, SELFPAY | PROVIDERS: PCP Internal Medicine; Referring Provider Internal Medicine; Visit Provider Internal Medicine Cardiovascular Disease ==

== ENCOUNTER → 2023-01-18 23:59 | Outpatient (BNV) | payer MEDICARE, SELFPAY ==
--- NOTE | 2023-01-27 12:44 | MHC.OFFVIS ---
Intake Intake Visit Reasons: Remote HF Monitoring- Biotronik Allergies No Known Allergies [No Known Allergies*] Allergy (Verified 11/02/22 10:44) PFSH Medical History (Updated 03/10/22 @ 12:20 by ALIA Corcoran) Abnormal PFTs (pulmonary function tests) Breast cancer screening Chronic kidney disease Colon cancer screening Decreased hearing of both ears Dizziness Dyspnea on exertion Encounter for annual wellness exam in Medicare patient Fatty liver History of atrial fibrillation History of shingles Humerus shaft fracture Hx of tachycardia-bradycardia syndrome Hypercholesterolemia Hypothyroid Osteoporosis screening Pacemaker Restrictive lung disease T12 compression fracture Surgical History History of back surgery History of lumpectomy of right breast History of open reduction and internal fixation (ORIF) procedure History of permanent cardiac pacemaker placement Hx of colonoscopy Family History Father No problems noted. Mother No problems noted. Brother Prostate cancer Sister No problems noted. Son No problems noted. Daughter No problems noted. Other Mental health disorder Substance use disorder Social History (Updated 11/02/22 @ 10:45 by NILA Ledesma) Housing: House Alcohol intake: current Alcohol intake frequency: a few times a week Patient Tobacco Use Status: Former Tobacco user Quit Date: 1981 Years Smoked: 18 +/- e-Cigarette/Vaping Use: Never Used Second Hand Smoke Exposure: No service: No Current occupational status: retired Current occupation: right handed Current occupational exposures/hazards: No Cognitive needs: No Hearing needs: No Vision needs: Yes Office Procedures Cardiac Device Check Cardiac Device Check Details: Heart failure monitoring. Stable thoracic impedance. [id number] Cardiac Device Interrogation, cardio physiologic monitor Procedure code (CPT) selection complete Assessment & Plan Assessment & Plan (1) Pacemaker: Code(s): Z95.0 - Presence of cardiac pacemaker Coding Level of Care Code Procedure Only Diagnoses Pacemaker Z95.0 CPT Codes Cardiac Device Check - Cardiac Device 15: [id number] Cardiac Device Interrogation, cardio physiologic monitor ([id number])
== END ==
PROVIDERS: PCP Internal Medicine; Visit Provider Internal Medicine Cardiovascular Disease
DX: I48.0 Paroxysmal atrial fibrillation (principal); Z95.0 Presence of cardiac pacemaker
CPT/HCPCS: 93297

== ENCOUNTER → 2023-02-18 23:59 | Outpatient (BNV) | payer MEDICARE, SELFPAY ==
--- NOTE | 2023-02-23 18:42 | MHC.OFFVIS ---
Intake Intake Visit Reasons: Remote HF Monitoring- Biotronik Allergies No Known Allergies [No Known Allergies*] Allergy (Verified 11/02/22 10:44) PFSH Medical History (Updated 03/10/22 @ 12:20 by ALIA Corcoran) History of shingles History of atrial fibrillation Hx of tachycardia-bradycardia syndrome Pacemaker Hypothyroid Humerus shaft fracture Dizziness Decreased hearing of both ears Breast cancer screening Osteoporosis screening Colon cancer screening Encounter for annual wellness exam in Medicare patient Dyspnea on exertion Restrictive lung disease Abnormal PFTs (pulmonary function tests) Fatty liver Hypercholesterolemia Chronic kidney disease T12 compression fracture Surgical History History of back surgery History of lumpectomy of right breast History of open reduction and internal fixation (ORIF) procedure History of permanent cardiac pacemaker placement Hx of colonoscopy Family History Father No problems noted. Mother No problems noted. Brother Prostate cancer Sister No problems noted. Son No problems noted. Daughter No problems noted. Other Mental health disorder Substance use disorder Social History (Updated 11/02/22 @ 10:45 by NILA Ledesma) Housing: House Alcohol intake: current Alcohol intake frequency: a few times a week Patient Tobacco Use Status: Former Tobacco user Quit Date: 1981 Years Smoked: 18 +/- e-Cigarette/Vaping Use: Never Used Second Hand Smoke Exposure: No service: No Current occupational status: retired Current occupation: right handed Current occupational exposures/hazards: No Cognitive needs: No Hearing needs: No Vision needs: Yes Office Procedures Cardiac Device Check Cardiac Device Check Details: HF monitoring. Stable thoracic impedance. [id number] Cardiac Device Interrogation, cardio physiologic monitor Procedure code (CPT) selection complete Assessment & Plan Assessment & Plan (1) Pacemaker: Code(s): Z95.0 - Presence of cardiac pacemaker Orders: Orders AMB Cardiac Device Follow-up 02/18/23 Z95.0 - Presence of cardiac pacemaker Coding Level of Care Code Procedure Only Diagnoses Pacemaker Z95.0 CPT Codes Cardiac Device Check - Cardiac Device 15: [id number] Cardiac Device Interrogation, cardio physiologic monitor ([id number])
== END ==
PROVIDERS: PCP Internal Medicine; Visit Provider Internal Medicine Cardiovascular Disease
DX: I48.0 Paroxysmal atrial fibrillation (principal); Z95.0 Presence of cardiac pacemaker
CPT/HCPCS: 93297

== ENCOUNTER 2023-03-02 08:19 | Outpatient (REF) | payer MEDICARE, SELFPAY ==
[2023-03-02 09:49] LABS: Alanine Aminotransferase 23 U/L (0-31); Albumin Level 4.1 g/dL (3.5-5.0); Alkaline Phosphatase 59 U/L (39-117); Anion Gap 14 (12-20); Aspartate Amino Transferase 26 U/L (5-31); Bilirubin Total 1.5 mg/dL (0.0-1.0); Blood Urea Nitrogen 16 mg/dL (9-16); Calcium 9.3 mg/dL (8.4-10.2); Carbon Dioxide 25 mmol/L (22-29); Chloride 109 mmol/L (96-108); Cholesterol 151 mg/dL (<200); Estimated Glomerular Filt Rate > 60; Glucose Random 101 mg/dL (60-115); HDL Cholesterol 73 mg/dL (>40); LDL Cholesterol Calculated 60 mg/dL (<100); Potassium 4.1 mmol/L (3.3-5.1); Sodium 144 mmol/L (135-145); Total Protein 7.4 g/dL (6.5-8.0); Triglycerides 93 mg/dL (<150)
[2023-03-02 09:59] LABS: Free T4 (Free Thyroxine) 0.95 ng/dL (0.71-1.85); Thyroid Stimulating Hormone 0.33 uIU/mL (0.32-4.0); Vitamin D 25-OH Total 78.6 ng/mL (>30)
== END 2023-03-02 08:20 | disposition home or self-care (01) ==
LOC: HO.LAB 08:19
PROVIDERS: PCP Internal Medicine; Visit Provider Internal Medicine
DX: E78.00 Pure hypercholesterolemia, unspecified (principal); M81.0 Age-related osteoporosis without current pathological fracture
CPT/HCPCS: 36415; 80053; 80061; 82306; 82607; 82746; 83880; 84439; 84443; 85025

== ENCOUNTER 2023-03-10 09:06 | Outpatient (AMB) | payer MEDICARE, SELFPAY ==
--- NOTE | 2023-03-10 09:16 | AM.OFFVISMDC ---
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: No Accompanied by: Self / Same As Patient Allergies No Known Allergies [No Known Allergies*] Allergy (Verified 03/10/23 09:18) Medication List - Last Reconciled 03/10/23 by Thong Matthews MD amlodipine 5 mg PO DAILY 90 days atenolol 100 mg PO DAILY cholecalciferol (vitamin D3) 25 mcg PO DAILY cyanocobalamin (vitamin B-12) mcg PO DAILY denosumab (Prolia) 60 mg subcut [id number] furosemide 20 mg PO DAILY 90 days levothyroxine 75 mcg PO DAILY multivitamin 1 tab PO DAILY rivaroxaban 15 mg PO DAILY 90 days rosuvastatin 10 mg PO BEDTIME HPI swv HPI Details 77-year-old female with osteoporosis on Prolia receiving it today history of paroxysmal atrial fibrillation hypothyroidism hypertension hypercholesterolemia patient was last seen in August 2022. Patient's colonoscopy is up-to-date June 2021. Mammogram is up-to-date May 2022 and the last bone density was July 2021. Patient has a pacemaker and is being followed up by Cardiology regularly. Two thousand fifteen paroxysmal atrial fibrillation with pauses of excess of 4 seconds Last echocardiogram October 2022Normal left ventricular size and systolic function. There is mildly increased left ventricular wall thickness. The visually estimated ejection fraction is between 55-60%. - Diastolic function is normal for age. Global longitudinal strain is normal -20%. - Normal right ventricular cavity size and systolic function. - There is mild to moderate tricuspid valve regurgitation. Normal right atrial pressure. There is no evidence of pulmonary hypertension. Patient continues to be on anticoagulation Patient is here for a [facility] Medical History (Updated 03/10/23 @ 09:59 by Thong Matthews MD) History of shingles History of atrial fibrillation Hx of tachycardia-bradycardia syndrome Pacemaker Hypothyroid Humerus shaft fracture Dizziness Decreased hearing of both ears Breast cancer screening Osteoporosis screening Colon cancer screening Encounter for annual wellness exam in Medicare patient Dyspnea on exertion Restrictive lung disease Abnormal PFTs (pulmonary function tests) Fatty liver Hypercholesterolemia Chronic kidney disease T12 compression fracture Surgical History History of open reduction and internal fixation (ORIF) procedure History of lumpectomy of right breast Hx of colonoscopy History of permanent cardiac pacemaker placement History of back surgery Family History (Updated 03/10/23 @ 09:20 by NILA Brizuela) Father No problems noted. Mother No problems noted. Brother Prostate cancer Sister No problems noted. Son No problems noted. Daughter No problems noted. Family/Other Mental health disorder Substance use disorder Social History (Updated 03/10/23 @ 09:58 by Thong Matthews MD) Housing: House Alcohol intake: current Alcohol intake frequency: a few times a week Patient Tobacco Use Status: Former Tobacco user Quit Date: 1981 Smoked: 18 +/- e-Cigarette/Vaping Use: Never Used Second Hand Smoke Exposure: No service: No Current occupational status: retired Current occupation: right handed Current occupational exposures/hazards: No Cognitive needs: No Hearing needs: No Vision needs: Yes Questionnaire Medicare Wellness Checkup [age] What gender do you identify with?: female During the past 4 weeks, how much have you been bothered by emotional problems such as feeling anxious, depressed, irritable, sad or downhearted, and blue?: moderately During the past 4 weeks, has your physical & emotional health limited your social activities with family, friends, neighbors, or groups?: not at all During the past 4 weeks, how much bodily pain have you generally had?: very mild pain During the past 4 weeks, was someone available to help you if you needed & wanted help?: yes, quite a bit During the past 4 weeks, what was the hardest physical activity you could do for at least 2 minutes?: light Can you get to places out of walking distance without help? (For eg., can you travel alone on buses, taxis or drive your car?): Yes Can you go shopping for groceries or clothes without someone's help?: Yes Can you prepare your own meals?: Yes Can you do your housework without help?: Yes Because of any health problems, do you need the help of another person with your personal care needs such as eating, bathing, dressing or getting around the house?: No Can you handle your own money without help?: Yes During the past 4 weeks, how would you rate your health in general?: very good During the past 4 weeks how have things been going for you?: pretty well Are you having difficulties driving your car?: no Do you always fasten your seat belt when you are in a car?: no During past 4 weeks, have you been bothered by the following: never: Falling or dizzy when standing up, Sexual problems?, Trouble eating well?, Teeth or denture problems?, Problems using the telephone? and Tiredness or fatigue? Have you fallen 2 or more times in the past year?: No Are you afraid of falling?: No Are you a smoker?: no During the past 4 weeks, how many drinks of wine, beer, or other alcoholic beverages did you have?: 2-5 drinks per week Do you exercise for about 20 minutes 3 or more times a week?: yes, most of the time Have you been given information to help with the following?: yes: Hazards in your house that might hurt you? and no: Keeping track of your medications? How often do you have trouble taking medicines the way you have been told to take them?: I always take medicine as prescribed How confident are you that you can control & manage most of your health problems?: very confident What is your race?: White PHQ-9 Over the last 2 weeks, how often have you been bothered by any of the following problems? 1. Little interest or pleasure in doing things: not at all 2. Feeling down, depressed, or hopeless: not at all 3. Trouble falling or staying asleep, or sleeping too much: not at all 4. Feeling tired or having little energy: not at all 5. Poor appetite or overeating: not at all 6. Feeling bad about yourself - or that you are a failure or have let yourself or your family down: not at all 7. Trouble concentrating on things, such as reading the newspaper or watching television: not at all 8. Moving or speaking so slowly that other people could have noticed. Or the opposite - being so fidgety or restless that you have been moving around a lot more than usual: not at all 9. Thoughts that you would be better off or of hurting yourself in some way: not at all Total score: 0 Source: Developed by Drs. Kameron Joyner, Oj Alejandro and colleagues, with an educational gabriella from [employer]. KYLAH-7 AMB Questionnaire KYLAH-7 Date KYLAH - 7 assessed: 03/10/23 Feeling nervous, anxious, or on edge: 0 = Not at all Not being able to stop or control worryin = Not at all Worrying too much about different things: 0 = Not at all Trouble relaxin = Not at all Being so restless that it is hard to sit still: 0 = Not at all Becoming easily annoyed or irritable: 0 = Not at all Feeling afraid as if something awful might happen: 0 = Not at all Total KYLAH-7 score (0-4 normal; 5-9 mild; 10-14 moderate; 15-21 severe): 0 Source: Developed by Drs. Kameron Joyner, Oj Alejandro and colleagues, with an educational gabriella from [employer]. Thrive Questionnaire Date Thrive assessed: 03/10/23 I am a: Patient What is your living situation today?: I have a steady place to live Within the past 12 months, did the food you bought not last and you didn't have the money to get more?: Never true Within the past 12 months, did you worry whether your food would run out before you got money to buy more?: Never true Do you have trouble paying for medicines?: No Do you have trouble getting transportation to medical appointments?: No Do you have trouble paying your heating and electricity bill?: No Do you have trouble taking care of your child, family member or friend?: No Do you have trouble with day-to-day activities such as bathing, preparing meals, shopping, managing finances, etc.?: No Are you currently unemployed and looking for a job?: No Are you interested in more education?: No Please select the resources that you would like help with: None Currently or been in a relationship where the following occur: no concerns reported AUDIT C Alcohol Use Questionnaire (AUDIT-C) 1. How often do you have a drink containing alcohol?: 2-3 times a week 2. How many drinks containing alcohol do you have on a typical day when you are drinking?: 1 or 2 3. How often do you have six or more drinks on one occasion?: Never Total Score: 3 Fall Risk Assessment Fall Risk Assessment Fall risk assessment: No Falls in past year Review of Systems Const Denies poor appetite and Denies weakness Eyes Denies no additional complaints ENT Reports Normal hearing present, Denies dizziness, Denies nasal congestion, Denies tinnitus and Denies sore throat Card Denies chest pain, Denies syncope, Denies rapid heart rate and Denies dyspnea Resp Denies cough and Denies dyspnea GI Denies change in stool character, Reports constipation, Denies diarrhea, Denies nausea and Denies vomiting Denies urinary frequency, Denies difficulty voiding and Denies dysuria Neuro Reports Normal hearing present, Denies confusion, Denies dizziness, Denies syncope and Denies weakness Psych Denies confusion Physical Exam Vital Signs: Last Vital Signs Pulse 58 03/10/23 09:17 BP 120/80 03/10/23 09:17 Pulse Ox 98 03/10/23 09:17 Oxygen Delivery Method Room Air 03/10/23 09:17 BMI result Body Mass Index 21.7 Const General: No confusion Orientation/consciousness: No confusion HEENT Head: Yes normocephalic Ears: external ears normal and TM's normal bilaterally Face and sinus: Yes normal facial exam Mouth: moist mucous membranes Throat: Yes tonsils normal Eyes Conjunctivae: conjunctivae normal Pupils: Equal, round and reactive pupils present and Pupil accommodation reflex normal Direct Ophthalmoscopy: normal light reflex Neck Neck: No lymphadenopathy Thyroid: Thyroid normal Chest Chest palpation & inspection: normal inspection of the chest Resp Effort & Inspection: normal respiratory effort and no audible wheezes Auscultation: clear to auscultation bilaterally, no crackles, no wheezes and lung sounds not diminished Cardio Rate: regular rate Rhythm: regular rhythm Peripheral pulses: radial pulses present and dorsalis pedis present GI Palpation (GI): no masses Auscultation: normal bowel sounds and normoactive bowel sounds Rectal Exam - Female: deferred Skin General skin exam: no rashes or lesions noted Rashes: no rashes Neuro General: No confusion Cranial nerves: Yes Equal, round and reactive pupils present and Yes Normal hearing present Cognition (Neuro): normal cognition Gait exam (Neuro): Normal gait present Motor exam (neuro): 5/5 motor strength present throughout Deep tendon reflexes (DTR's): Right brachioradialis reflex intensity grade: 2+, Left brachioradialis reflex intensity grade: 2+, Right patellar reflex intensity grade: 2+ and Left patellar reflex intensity grade: 2+ Extrem General: No edema Office Meds Prolia 60 mg/mL subcutaneous syringe Performing Provider: Thong Matthews MD [facility] Administered by: Corey Shirley RN on 03/10/23 09:45 Dose Route Admin Location Dispensed Lot Number Expiration Date NDC Clinical Support Associate 60 mg subcut right arm SQ 1 mL [id number] 07/21/25 19332-280-35 AMGEN Comments: Patient consented for Prolia injection today. Reviewed with Dr. Matthews. Patient tolerated injection well. Assessment & Plan Assessment & Plan (1) Osteoporosis: Comment: Prolia February 2023 Code(s): M81.0 - Age-related osteoporosis without current pathological fracture Plan: Patient on Prolia February 2023 and up-to-date with bone density (2) Medicare annual wellness visit, subsequent: Code(s): Z00.00 - Encounter for general adult medical examination without abnormal findings (3) PAF (paroxysmal atrial fibrillation): Code(s): I48.0 - Paroxysmal atrial fibrillation Plan: Continue with anticoagulation with Xarelto (4) Hypothyroid: Code(s): E03.9 - Hypothyroidism, unspecified Qualifiers: Hypothyroidism type: acquired Qualified Code(s): E03.9 - Hypothyroidism, unspecified Plan: Continue with thyroid medication (5) Hypertension: Code(s): I10 - Essential (primary) hypertension Plan: Continue with blood pressure medication. Decrease salt intake and exercise patient takes atenolol 100 mg once a day amlodipine 5 mg once a day (6) Hypercholesterolemia: Code(s): E78.00 - Pure hypercholesterolemia, unspecified Plan: Avoid fried foods, chicken skin, eggs, butter margarine, pastries and meat. Be it pork or beef they have a lot of cholesterol LDL goal of less than 100 and triglyceride of less than 150. Patient is on rosuvastatin 10 mg once a day (7) Chronic kidney disease: Code(s): N18.9 - Chronic kidney disease, unspecified Plan: Stable (8) Hearing difficulty: Code(s): H91.90 - Unspecified hearing loss, unspecified ear Orders: Orders AMB Denosumab Injection Patient Supplied Today M81.0 - Age-related osteoporosis without current pathological fracture Referrals Speech and Hearing Referral H91.90 - Unspecified hearing loss, unspecified ear Quality Reporting (2019) Fall Risk Screening ([facility] 139) Fall risk assessment: No Falls in past year Depression/Bipolar (159/160/161/177) PHQ-9: Total score: 0 Coding Level of Care Code Medicare Subsequent (G0439) Diagnoses Osteoporosis M81.0 Medicare annual wellness visit, subsequent Z00.00 PAF (paroxysmal atrial fibrillation) I48.0 Acquired hypothyroidism E03.9 Hypothyroidism type: acquired Hypertension I10 Hypercholesterolemia E78.00 Chronic kidney disease N18.9 Hearing difficulty H91.90
[2023-03-10 09:17] VITALS: BP 120/80; PULSE 58; O2SAT 98; BMI 21.7
== END 2023-03-10 10:13 | disposition home or self-care (01) ==
PROVIDERS: Visit Provider Internal Medicine
DX: Z00.00 Encounter for general adult medical examination without abnormal findings (principal); M81.0 Age-related osteoporosis without current pathological fracture; I48.0 Paroxysmal atrial fibrillation; I12.9 Hypertensive chronic kidney disease with stage 1 through stage 4 chronic kidney disease, or unspecified chronic kidney disease; N18.30 Chronic kidney disease, stage 3 unspecified
CPT/HCPCS: 96372; G0439; J0897

== ENCOUNTER → 2023-04-01 23:59 | Outpatient (BNV) | payer MEDICARE, SELFPAY ==
--- NOTE | 2023-04-19 09:27 | MHC.OFFVIS ---
Intake Intake Visit Reasons: Remote Device Check- Biotronik Allergies No Known Allergies [No Known Allergies*] Allergy (Verified 03/10/23 09:18) PFS Medical History (Updated 03/10/23 @ 09:59 by Thong Matthews MD) History of shingles History of atrial fibrillation Hx of tachycardia-bradycardia syndrome Pacemaker Hypothyroid Humerus shaft fracture Dizziness Decreased hearing of both ears Breast cancer screening Osteoporosis screening Colon cancer screening Encounter for annual wellness exam in Medicare patient Dyspnea on exertion Restrictive lung disease Abnormal PFTs (pulmonary function tests) Fatty liver Hypercholesterolemia Chronic kidney disease T12 compression fracture Surgical History History of open reduction and internal fixation (ORIF) procedure History of lumpectomy of right breast Hx of colonoscopy History of permanent cardiac pacemaker placement History of back surgery Family History (Updated 03/10/23 @ 09:20 by NILA Brizuela) Father No problems noted. Mother No problems noted. Brother Prostate cancer Sister No problems noted. Son No problems noted. Daughter No problems noted. Family/Other Mental health disorder Substance use disorder (Updated 03/10/23 @ 09:58 by Thong Matthews MD) Housing: House Alcohol intake: current Alcohol intake frequency: a few times a week Patient Tobacco Use Status: Former Tobacco user Quit Date: 1981 Smoked: 18 +/- e-Cigarette/Vaping Use: Never Used Second Hand Smoke Exposure: No service: No Current occupational status: retired Current occupation: right handed Current occupational exposures/hazards: No Cognitive needs: No Hearing needs: No Vision needs: Yes Office Procedures Cardiac Device Check Cardiac Device Check Details: PPM Battery life good AMS episodes up to 4/day. Known Afib. No other alerts. [id number] Cardiac Device Interrogation, pacemaker Procedure code (CPT) selection complete Assessment & Plan Assessment & Plan (1) Pacemaker: Code(s): Z95.0 - Presence of cardiac pacemaker Coding Level of Care Code Procedure Only Diagnoses Pacemaker Z95.0 CPT Codes Cardiac Device Check - Cardiac Device 12: [id number] Cardiac Device Interrogation, pacemaker ([id number])
== END ==
PROVIDERS: PCP Internal Medicine; Visit Provider Internal Medicine Cardiovascular Disease
DX: I48.0 Paroxysmal atrial fibrillation (principal); Z95.0 Presence of cardiac pacemaker
CPT/HCPCS: 93294

== ENCOUNTER → 2023-05-06 23:59 | Outpatient (BNV) | payer MEDICARE, SELFPAY ==
--- NOTE | 2023-05-06 08:51 | MHC.OFFVIS ---
Intake Intake Visit Reasons: Remote HF Monitoring- Biotronik Allergies No Known Allergies [No Known Allergies*] Allergy (Verified 03/10/23 09:18) PFSH Medical History (Updated 03/10/23 @ 09:59 by Thong Matthews MD) History of shingles History of atrial fibrillation Hx of tachycardia-bradycardia syndrome Pacemaker Hypothyroid Humerus shaft fracture Dizziness Decreased hearing of both ears Breast cancer screening Osteoporosis screening Colon cancer screening Encounter for annual wellness exam in Medicare patient Dyspnea on exertion Restrictive lung disease Abnormal PFTs (pulmonary function tests) Fatty liver Hypercholesterolemia Chronic kidney disease T12 compression fracture Surgical History History of open reduction and internal fixation (ORIF) procedure History of lumpectomy of right breast Hx of colonoscopy History of permanent cardiac pacemaker placement History of back surgery Family History (Updated 03/10/23 @ 09:20 by NILA Brizuela) Father No problems noted. Mother No problems noted. Brother Prostate cancer Sister No problems noted. Son No problems noted. Daughter No problems noted. Family/Other Mental health disorder Substance use disorder Social History (Updated 03/10/23 @ 09:58 by Thong Matthews MD) Housing: House Alcohol intake: current Alcohol intake frequency: a few times a week Patient Tobacco Use Status: Former Tobacco user Quit Date: 1981 Smoked: 18 +/- e-Cigarette/Vaping Use: Never Used Second Hand Smoke Exposure: No service: No Current occupational status: retired Current occupation: right handed Current occupational exposures/hazards: No Cognitive needs: No Hearing needs: No Vision needs: Yes Office Procedures Cardiac Device Check Cardiac Device Check Details: HF monitoring Stable thoracic impedance 4 episodes of atrial arrhythmia. Known h/o Afib. [id number] Cardiac Device Interrogation, cardio physiologic monitor Procedure code (CPT) selection complete Assessment & Plan Assessment & Plan (1) Pacemaker: Code(s): Z95.0 - Presence of cardiac pacemaker Plan Orders: Orders AMB Cardiac Device Follow-up Today Z95.0 - Presence of cardiac pacemaker Coding Level of Care Code Procedure Only Diagnoses Pacemaker Z95.0 CPT Codes Cardiac Device Check - Cardiac Device 15: [id number] Cardiac Device Interrogation, cardio physiologic monitor ([id number])
== END ==
PROVIDERS: PCP Internal Medicine; Visit Provider Internal Medicine Cardiovascular Disease
DX: I48.0 Paroxysmal atrial fibrillation (principal); Z95.0 Presence of cardiac pacemaker
CPT/HCPCS: 93297

== ENCOUNTER 2023-05-10 09:34 | Outpatient (AMB) | payer MEDICARE, SELFPAY ==
--- NOTE | 2023-05-10 09:36 | MHC.OFFVIS ---
Intake Vital Signs 05/10/23 09:37 Height 4 ft 9.5 in Weight 101 lb 13.657 oz BMI 21.7 BP 100/60 Blood Pressure Location Lt brachial Position Sitting Pulse 59 Pulse Source Pulse Oximeter Intake Visit Reasons: 6 month follow up after echo Intake Note: 6 mnth f/up after echo/pt its feeling good It Application Administrator Required: No Accompanied by: Self / Same As Patient Allergies No Known Allergies [No Known Allergies*] Allergy (Verified 03/10/23 09:18) Medication List - Last Reconciled 05/10/23 by Levon Santiago MD amlodipine 5 mg PO DAILY 90 days atenolol 100 mg PO DAILY cholecalciferol (vitamin D3) 25 mcg PO DAILY cyanocobalamin (vitamin B-12) mcg PO DAILY denosumab (Prolia) 60 mg subcut [id number] furosemide 20 mg PO DAILY 90 days levothyroxine 75 mcg PO DAILY multivitamin 1 tab PO DAILY rivaroxaban 15 mg PO DAILY 90 days rosuvastatin 10 mg PO BEDTIME HPI HPI Comments History of Present Illness Details 78-year-old female here for follow-up. She was previously seeing Dr. Ortiz. She has background history of permanent pacemaker placement. I reviewed her Holter monitor from 2014 which showed paroxysmal atrial fibrillation and pauses in excess of 4 seconds. She does not remember much of her history. We do not have records available. She said she was told by Dr. Ortiz that she needs the pacemaker and had pacemaker placement. She also was on amiodarone 200 mg once a day. She was on Xarelto for AFib. No bleeding issues. She denies chest pain or shortness of breath. She was referred for blood workup because she was on amiodarone. Her liver function test was abnormal. Looking back her test has been abnormal. She said she has seen gastroenterology in the past and was told that she has fatty liver disease. She is denying any symptoms as before. No bleeding issues. After discussion she was taken off the amiodarone. Today she returns for follow-up. She has been walking her dog 3 times a day. She has no dyspnea or chest discomfort. No palpitations during the day but at nighttime she occasionally feels palpitations. She is saying she is not bothered by them. She is taking Xarelto regularly without any bleeding concerns. Overall she feels great. Blood pressure control is good. EKG showing sinus rhythm. 05/10/2023: She returns for follow-up. She has been doing well. Occasionally feels palpitations. Her pacemaker interrogation in the past has shown episodes of atrial fibrillation which were self-limiting. She was previously on amiodarone but due to elevated liver enzymes the amiodarone was stopped. We decided to start her on Multaq but there is interaction with Xarelto and I felt that stopping Xarelto is not the best thing to do currently. After discussion we have decided to start her flecainide 50 mg twice a day. [facility] Medical History (Updated 03/10/23 @ 09:59 by Thong Matthews MD) History of shingles History of atrial fibrillation Hx of tachycardia-bradycardia syndrome Pacemaker Hypothyroid Humerus shaft fracture Dizziness Decreased hearing of both ears Breast cancer screening Osteoporosis screening Colon cancer screening Encounter for annual wellness exam in Medicare patient Dyspnea on exertion Restrictive lung disease Abnormal PFTs (pulmonary function tests) Fatty liver Hypercholesterolemia Chronic kidney disease T12 compression fracture Surgical History History of open reduction and internal fixation (ORIF) procedure History of lumpectomy of right breast Hx of colonoscopy History of permanent cardiac pacemaker placement History of back surgery Family History Father No problems noted. Mother No problems noted. Brother Prostate cancer Sister No problems noted. Son No problems noted. Daughter No problems noted. Family/Other Mental health disorder Substance use disorder Social History Housing: House Alcohol intake: current Alcohol intake frequency: a few times a week Patient Tobacco Use Status: Former Tobacco user Quit Date: 1981 Years Smoked: 18 +/- e-Cigarette/Vaping Use: Never Used Second Hand Smoke Exposure: No service: No Current occupational status: retired Current occupation: right handed Current occupational exposures/hazards: No Cognitive needs: No Hearing needs: No Vision needs: Yes Review of Systems Const Reports chills, Reports fatigue, Reports fever(s), Reports frequent falls, Reports weakness, Reports weight gain and Reports weight loss ENT Reports dizziness Card Reports chest pain, Reports leg edema, Reports lightheadedness, Reports palpitations, Reports dyspnea and Reports dyspnea on exertion Resp Reports cough, Reports dyspnea and Reports dyspnea on exertion GI Reports hematochezia Musc Reports abnormal gait, Reports muscle weakness, Reports numbness, Reports radiating pain into limb and Reports tingling Neuro Reports abnormal gait, Reports dizziness, Reports frequent falls, Reports numbness, Reports tingling and Reports weakness Endo Reports fatigue and Reports palpitations Physical Exam Vital Signs: Last Vital Signs Pulse 59 05/10/23 09:37 BP 100/60 05/10/23 09:37 BMI result Body Mass Index 21.7 GENERAL APPEARANCE: in no acute distress. NECK/THYROID: no carotid bruit, no jugular venous distention. SKIN: no suspicious lesions, warm and dry. HEART: no murmurs, regular rate and rhythm, S1, S2 normal. LUNGS: clear to auscultation bilaterally. ABDOMEN: normal, bowel sounds present, soft, nontender, nondistended. EXTREMITIES: no clubbing, cyanosis, or edema. PERIPHERAL PULSES: equal. NEUROLOGIC: nonfocal, alert and oriented. PSYCH: mood/affect full range. Assessment & Plan Assessment & Plan (1) PAF (paroxysmal atrial fibrillation): Code(s): I48.0 - Paroxysmal atrial fibrillation (2) Pacemaker: Code(s): Z95.0 - Presence of cardiac pacemaker Plan [age] year female with history of permanent pacemaker the past and paroxysmal atrial fibrillation. She is here for follow-up. Clinically stable. Has been experiencing some palpitations off and on and device interrogation has shown episodes of atrial fibrillation. She previously did not complain of palpitations but is complaining of some palpitations now. She was on amiodarone the past but due to liver enzyme elevation amiodarone was discontinued. I have explained to her that there few options. We decided to start with Multaq but Multaq has an interaction with Xarelto. After discussion with the patient I have decided to start on flecainide 50 mg twice a day. No history of coronary disease reportedly. No anginal symptoms in the past. I think she can start 50 twice a day of flecainide. Will monitor her with her pacemaker to see if there is any episodes of atrial fibrillation. Continue rest of the medications as before. Thank you for allowing me to participate in the care of your patient. Please feel free to contact me if you have any questions. Medications: New flecainide 50 mg PO Q12H 100 tabs 3RF I48.0 - Paroxysmal atrial fibrillation Coding Level of Care Code Est Pt Level 4 (72296) Diagnoses PAF (paroxysmal atrial fibrillation) I48.0 Pacemaker Z95.0
[2023-05-10 09:37] VITALS: BP 100/60; PULSE 59; BMI 21.7
== END 2023-05-10 10:11 | disposition home or self-care (01) ==
PROVIDERS: PCP Internal Medicine; Visit Provider Internal Medicine Cardiovascular Disease
DX: I48.0 Paroxysmal atrial fibrillation (principal); Z95.0 Presence of cardiac pacemaker
CPT/HCPCS: 99214

== ENCOUNTER → 2023-05-10 09:34 | Outpatient (BNVA) | payer MEDICARE, SELFPAY | PROVIDERS: PCP Internal Medicine; Visit Provider Internal Medicine Cardiovascular Disease | DX: I48.0 Paroxysmal atrial fibrillation (principal); Z95.0 Presence of cardiac pacemaker | CPT/HCPCS: 99212 ==

== ENCOUNTER 2023-06-18 08:00 | Outpatient (REF) | payer MEDICARE, SELFPAY ==
--- NOTE | ~2023-06-18 | MM_ITS ---
EXAMINATION: MM SCREENING DIGITAL BREAST TOMOSYNTHESIS, BILATERAL CLINICAL INFORMATION: Screening. Asymptomatic. COMPARISON: Mammography: This study is compared with prior exams dating back to 2018. TECHNIQUE: Digital breast tomosynthesis is performed in both the craniocaudal and mediolateral oblique views along with computer-aided detection (CAD). Synthesized 2D images are generated from the tomosynthesis. FINDINGS: There are scattered areas of fibroglandular density (ACR BI-RADS breast composition Category b). There is a pacemaker superior aspect of the left breast. There is a tissue marker in the right breast from prior benign percutaneous biopsy. There are no significant masses, abnormal calcifications, or other abnormalities. MM/MM tomosynthesis screening BI IMPRESSION: No mammographic evidence of malignancy. ASSESSMENT: BI-RADS BI-RADS 2 - Benign Findings RECOMMENDATION: Routine annual mammography screening. 1 year F/U This examination should not preclude the clinical evaluation of a suspicious palpable abnormality. This patient's information was entered into a reminder system with a target due date for their next mammogram.
== END 2023-06-18 08:01 | disposition home or self-care (01) ==
LOC: HO.MAMMO 08:00
PROVIDERS: PCP Internal Medicine; Visit Provider Internal Medicine
DX: Z12.31 Encounter for screening mammogram for malignant neoplasm of breast (principal)
CPT/HCPCS: 77063; 77067

== ENCOUNTER → 2023-06-18 08:15 | Outpatient (BNV) | payer MEDICARE, SELFPAY | PROVIDERS: PCP Internal Medicine; Visit Provider Radiology Diagnostic Radiology | DX: Z12.31 Encounter for screening mammogram for malignant neoplasm of breast (principal) | CPT/HCPCS: 77063; 77067 ==

== ENCOUNTER → 2023-06-21 23:59 | Outpatient (BNV) | payer MEDICARE, SELFPAY ==
--- NOTE | 2023-07-03 20:35 | MHC.OFFVIS ---
Intake Intake Visit Reasons: Remote HF Monitoring- Biotronik Allergies No Known Allergies [No Known Allergies*] Allergy (Verified 03/10/23 09:18) [facility] Medical History (Updated 03/10/23 @ 09:59 by Thong Matthews MD) History of shingles History of atrial fibrillation Hx of tachycardia-bradycardia syndrome Pacemaker Hypothyroid Humerus shaft fracture Dizziness Decreased hearing of both ears Breast cancer screening Osteoporosis screening Colon cancer screening Encounter for annual wellness exam in Medicare patient Dyspnea on exertion Restrictive lung disease Abnormal PFTs (pulmonary function tests) Fatty liver Hypercholesterolemia Chronic kidney disease T12 compression fracture Surgical History History of open reduction and internal fixation (ORIF) procedure History of lumpectomy of right breast Hx of colonoscopy History of permanent cardiac pacemaker placement History of back surgery Family History Father No problems noted. Mother No problems noted. Brother Prostate cancer Sister No problems noted. Son No problems noted. Daughter No problems noted. Family/Other Mental health disorder Substance use disorder Social History Housing: House Alcohol intake: current Alcohol intake frequency: a few times a week Patient Tobacco Use Status: Former Tobacco user Quit Date: 1981 Years Smoked: 18 +/- e-Cigarette/Vaping Use: Never Used Second Hand Smoke Exposure: No service: No Current occupational status: retired Current occupation: right handed Current occupational exposures/hazards: No Cognitive needs: No Hearing needs: No Vision needs: Yes Office Procedures Cardiac Device Check Cardiac Device Check Details: HF monitoring Stable thoracic impedance [id number] Cardiac Device Interrogation, cardio physiologic monitor Procedure code (CPT) selection complete Assessment & Plan Assessment & Plan (1) Pacemaker: Code(s): Z95.0 - Presence of cardiac pacemaker Plan: Coding Level of Care Code Procedure Only Diagnoses Pacemaker Z95.0 CPT Codes Cardiac Device Check - Cardiac Device 15: [id number] Cardiac Device Interrogation, cardio physiologic monitor ([id number])
== END ==
PROVIDERS: PCP Internal Medicine; Visit Provider Internal Medicine Cardiovascular Disease
DX: I48.0 Paroxysmal atrial fibrillation (principal); Z95.0 Presence of cardiac pacemaker
CPT/HCPCS: 93297

== ENCOUNTER → 2023-06-28 23:59 | Outpatient (BNV) | payer MEDICARE, SELFPAY ==
--- NOTE | 2023-07-03 20:46 | MHC.OFFVIS ---
Intake Intake Visit Reasons: Remote Device Check- Biotronik Allergies No Known Allergies [No Known Allergies*] Allergy (Verified 03/10/23 09:18) [facility] Medical History (Updated 03/10/23 @ 09:59 by Thong Matthews MD) History of shingles History of atrial fibrillation Hx of tachycardia-bradycardia syndrome Pacemaker Hypothyroid Humerus shaft fracture Dizziness Decreased hearing of both ears Breast cancer screening Osteoporosis screening Colon cancer screening Encounter for annual wellness exam in Medicare patient Dyspnea on exertion Restrictive lung disease Abnormal PFTs (pulmonary function tests) Fatty liver Hypercholesterolemia Chronic kidney disease T12 compression fracture Surgical History History of open reduction and internal fixation (ORIF) procedure History of lumpectomy of right breast Hx of colonoscopy History of permanent cardiac pacemaker placement History of back surgery Family History Father No problems noted. Mother No problems noted. Brother Prostate cancer Sister No problems noted. Son No problems noted. Daughter No problems noted. Family/Other Mental health disorder Substance use disorder Social History Housing: House Alcohol intake: current Alcohol intake frequency: a few times a week Patient Tobacco Use Status: Former Tobacco user Quit Date: 1981 Years Smoked: 19 +/- e-Cigarette/Vaping Use: Never Used Second Hand Smoke Exposure: No service: No Current occupational status: retired Current occupation: right handed Current occupational exposures/hazards: No Cognitive needs: No Hearing needs: No Vision needs: Yes Office Procedures Cardiac Device Check Cardiac Device Check Details: PPM Battery life 45%. No new alerts. [id number] Cardiac Device Interrogation, pacemaker Procedure code (CPT) selection complete Assessment & Plan Assessment & Plan (1) Pacemaker: Code(s): Z95.0 - Presence of cardiac pacemaker Plan Orders: Orders AMB Cardiac Device Follow-up 06/28/23 I48.0 - Paroxysmal atrial fibrillation Coding Level of Care Code Procedure Only Diagnoses Pacemaker Z95.0 CPT Codes Cardiac Device Check - Cardiac Device 12: [id number] Cardiac Device Interrogation, pacemaker ([id number])
== END ==
PROVIDERS: PCP Internal Medicine; Visit Provider Internal Medicine Cardiovascular Disease
DX: I48.0 Paroxysmal atrial fibrillation (principal); Z95.0 Presence of cardiac pacemaker
CPT/HCPCS: 93294

== ENCOUNTER → 2023-07-26 23:59 | Outpatient (BNV) | payer MEDICARE, SELFPAY ==
--- NOTE | 2023-08-09 13:52 | MHC.OFFVIS ---
Intake Intake Visit Reasons: Remote HF Monitoring- Biotronik Allergies No Known Allergies [No Known Allergies*] Allergy (Verified 03/10/23 09:18) [facility] Medical History (Updated 03/10/23 @ 09:59 by Thong Matthews MD) History of shingles History of atrial fibrillation Hx of tachycardia-bradycardia syndrome Pacemaker Hypothyroid Humerus shaft fracture Dizziness Decreased hearing of both ears Breast cancer screening Osteoporosis screening Colon cancer screening Encounter for annual wellness exam in Medicare patient Dyspnea on exertion Restrictive lung disease Abnormal PFTs (pulmonary function tests) Fatty liver Hypercholesterolemia Chronic kidney disease T12 compression fracture Surgical History History of open reduction and internal fixation (ORIF) procedure History of lumpectomy of right breast Hx of colonoscopy History of permanent cardiac pacemaker placement History of back surgery Family History Father No problems noted. Mother No problems noted. Brother Prostate cancer Sister No problems noted. Son No problems noted. Daughter No problems noted. Family/Other Mental health disorder Substance use disorder Social History Housing: House Alcohol intake: current Alcohol intake frequency: a few times a week Patient Tobacco Use Status: Former Tobacco user Quit Date: 1981 Years Smoked: 19 +/- e-Cigarette/Vaping Use: Never Used Second Hand Smoke Exposure: No service: No Current occupational status: retired Current occupation: right handed Current occupational exposures/hazards: No Cognitive needs: No Hearing needs: No Vision needs: Yes Office Procedures Cardiac Device Check Cardiac Device Check Details: Heart failure monitoring. Good battery life. DDDR mode. Stable thoracic impedance. [id number] Cardiac Device Interrogation, cardio physiologic monitor Procedure code (CPT) selection complete Assessment & Plan Assessment & Plan (1) Pacemaker: Code(s): Z95.0 - Presence of cardiac pacemaker Plan Coding Level of Care Code Procedure Only Diagnoses Pacemaker Z95.0 CPT Codes Cardiac Device Check - Cardiac Device 15: [id number] Cardiac Device Interrogation, cardio physiologic monitor ([id number])
== END ==
PROVIDERS: PCP Internal Medicine; Visit Provider Internal Medicine Cardiovascular Disease
DX: Z95.0 Presence of cardiac pacemaker (principal)
CPT/HCPCS: 93297

== ENCOUNTER 2023-07-30 09:13 | Outpatient (REF) | payer MEDICARE, SELFPAY | END 2023-07-30 09:14 | disposition home or self-care (01) | LOC: HO.SH 09:13 | PROVIDERS: Visit Provider Internal Medicine | DX: Z01.118 Encounter for examination of ears and hearing with other abnormal findings (principal); H90.3 Sensorineural hearing loss, bilateral | CPT/HCPCS: 92557; 92567 ==

== ENCOUNTER → 2023-08-27 23:59 | Outpatient (BNV) | payer MEDICARE, SELFPAY ==
--- NOTE | 2023-08-30 21:58 | A.OFFVIS_ITS ---
Intake 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- Biotronik Allergies No Known Allergies [No Known Allergies*] Allergy (Verified 03/10/23 09:18) [facility] Medical History (Updated 03/10/23 @ 09:59 by Thong Matthews MD) History of shingles History of atrial fibrillation Hx of tachycardia-bradycardia syndrome Pacemaker Hypothyroid Humerus shaft fracture Dizziness Decreased hearing of both ears Breast cancer screening Osteoporosis screening Colon cancer screening Encounter for annual wellness exam in Medicare patient Dyspnea on exertion Restrictive lung disease Abnormal PFTs (pulmonary function tests) Fatty liver Hypercholesterolemia Chronic kidney disease T12 compression fracture Surgical History History of open reduction and internal fixation (ORIF) procedure History of lumpectomy of right breast Hx of colonoscopy History of permanent cardiac pacemaker placement History of back surgery Family History Father No problems noted. Mother No problems noted. Brother Prostate cancer Sister No problems noted. Son No problems noted. Daughter No problems noted. Family/Other Mental health disorder Substance use disorder Social History Housing: House Alcohol intake: current Alcohol intake frequency: a few times a week Patient Tobacco Use Status: Former Tobacco user Quit Date: 1981 Years Smoked: 19 +/- e-Cigarette/Vaping Use: Never Used Second Hand Smoke Exposure: No service: No Current occupational status: retired Current occupation: right handed Current occupational exposures/hazards: No Cognitive needs: No Hearing needs: No Vision needs: Yes Office Procedures Cardiac Device Check Cardiac Device Check Details: HF monitoring Stable thoracic impedance No new alerts. [id number] Cardiac Device Interrogation, cardio physiologic monitor Procedure code (CPT) selection complete Assessment & Plan Assessment & Plan (1) Pacemaker: Code(s): Z95.0 - Presence of cardiac pacemaker Plan: Orders: Orders AMB Cardiac Device Follow-up 08/27/23 I48.0 - Paroxysmal atrial fibrillation Coding Level of Care Code Procedure Only Diagnoses Pacemaker Z95.0 CPT Codes Cardiac Device Check - Cardiac Device 15: [id number] Cardiac Device Interrogation, cardio physiologic monitor ([id number])
== END ==
PROVIDERS: PCP Internal Medicine; Visit Provider Internal Medicine Cardiovascular Disease
DX: Z45.018 Encounter for adjustment and management of other part of cardiac pacemaker (principal)
CPT/HCPCS: 93297

== ENCOUNTER 2023-09-07 09:42 | Outpatient (AMB) | payer MEDICARE, SELFPAY ==
[2023-09-07 09:48] VITALS: BP 136/70; PULSE 55; O2SAT 97; BMI 22.1
--- NOTE | 2023-09-07 09:48 | MHC.PC.OV ---
Vital Signs 09/07/23 09:48 Height 4 ft 9.5 in Weight 104 lb BMI 22.1 BP 136/70 Blood Pressure Location Lt brachial Position Sitting Pulse 55 Pulse Source Pulse Oximeter Pulse Oximetry (%) 97 Oxygen Delivery Method Room Air Intake Visit Reasons: A fib/ shot Allergies No Known Allergies [No Known Allergies*] Allergy (Verified 09/07/23 09:49) Tobacco use date assessed: 09/07/23 Fall risk assessment: No Falls in past year Last assessed Fall Risk: 09/07/23 Dental Screening Dental Screen Date: 09/07/23 Did you have a dental visit in the last 12 months?: Yes Did you have a dental problem in the last 6 months where you did not have access to dental care?: No Was dental information given to patient?: Patient has dentist HPI A fib/ shot HPI Details 78-year-old female with a history of osteoporosis on Prolia with last bone density July 2021 having atrial fibrillation on anticoagulation hypothyroidism hypertension hypercholesterolemia chronic kidney disease last seen for annual wellness in February 2023. Patient is here for follow-up. Patient follows up with Cardiology patient was started on flecainide 50 mg twice a day. has a cold and is getting better the anticoagulation and flecainide needs retesting of the renal function . [facility] Medical History (Updated 03/10/23 @ 09:59 by Thong Matthews MD) History of shingles History of atrial fibrillation Hx of tachycardia-bradycardia syndrome Pacemaker Hypothyroid Humerus shaft fracture Dizziness Decreased hearing of both ears Breast cancer screening Osteoporosis screening Colon cancer screening Encounter for annual wellness exam in Medicare patient Dyspnea on exertion Restrictive lung disease Abnormal PFTs (pulmonary function tests) Fatty liver Hypercholesterolemia Chronic kidney disease T12 compression fracture Surgical History History of open reduction and internal fixation (ORIF) procedure History of lumpectomy of right breast Hx of colonoscopy History of permanent cardiac pacemaker placement History of back surgery Family History Father No problems noted. Mother No problems noted. Brother Prostate cancer Sister No problems noted. Son No problems noted. Daughter No problems noted. Family/Other Mental health disorder Substance use disorder Social History Housing: House Alcohol intake: current Alcohol intake frequency: a few times a week Patient Tobacco Use Status: Former Tobacco user Quit Date: 1981 Tobacco use type: Cigarette Years Smoked: 18 +/- e-Cigarette/Vaping Use: Never Used Second Hand Smoke Exposure: No service: No Current occupational status: retired Current occupation: right handed Current occupational exposures/hazards: No Cognitive needs: No Hearing needs: No Vision needs: Yes Questionnaire PHQ-9 Over the last 2 weeks, how often have you been bothered by any of the following problems? 1. Little interest or pleasure in doing things: not at all 2. Feeling down, depressed, or hopeless: not at all 3. Trouble falling or staying asleep, or sleeping too much: not at all 4. Feeling tired or having little energy: not at all 5. Poor appetite or overeating: not at all 6. Feeling bad about yourself - or that you are a failure or have let yourself or your family down: not at all 7. Trouble concentrating on things, such as reading the newspaper or watching television: not at all 8. Moving or speaking so slowly that other people could have noticed. Or the opposite - being so fidgety or restless that you have been moving around a lot more than usual: not at all 9. Thoughts that you would be better off or of hurting yourself in some way: not at all Total score: 0 Source: Developed by Drs. Kameron Joyner, Miladis Gauthier, Oj Casillas and colleagues, with an educational gabriella from [employer]. Thrive Questionnaire Date Thrive assessed: 09/07/23 I am a: Patient What is your living situation today?: I have a steady place to live Within the past 12 months, did the food you bought not last and you didn't have the money to get more?: Never true Within the past 12 months, did you worry whether your food would run out before you got money to buy more?: Never true Do you have trouble paying for medicines?: No Do you have trouble getting transportation to medical appointments?: No Do you have trouble paying your heating and electricity bill?: No Do you have trouble taking care of your child, family member or friend?: No Do you have trouble with day-to-day activities such as bathing, preparing meals, shopping, managing finances, etc.?: No Are you currently unemployed and looking for a job?: No Are you interested in more education?: No Please select the resources that you would like help with: None Currently or been in a relationship where the following occur: no concerns reported THRIVE Score: 0 AUDIT C Alcohol Use Questionnaire (AUDIT-C) 1. How often do you have a drink containing alcohol?: 2-3 times a week 2. How many drinks containing alcohol do you have on a typical day when you are drinking?: 1 or 2 3. How often do you have six or more drinks on one occasion?: Never Total Score: 3 KYLAH-7 AMB Questionnaire KYLAH-7 Date KYLAH - 7 assessed: 09/07/23 Feeling nervous, anxious, or on edge: 0 = Not at all Not being able to stop or control worryin = Not at all Worrying too much about different things: 0 = Not at all Trouble relaxin = Not at all Being so restless that it is hard to sit still: 0 = Not at all Becoming easily annoyed or irritable: 0 = Not at all Feeling afraid as if something awful might happen: 0 = Not at all Total KYLAH-7 score (0-4 normal; 5-9 mild; 10-14 moderate; 15-21 severe): 0 Source: Developed by Drs. Kameron Joyner, Miladis Gauthier, Oj Casillas and colleagues, with an educational gabriella from [employer]. Physical exam (Primary Care) Vital Signs: Last Vital Signs Pulse 55 09/07/23 09:48 BP 136/70 09/07/23 09:48 Pulse Ox 97 09/07/23 09:48 Oxygen Delivery Method Room Air 09/07/23 09:48 BMI result Body Mass Index 22.1 Tobacco/Smoking Status: Tobacco use Status Tobacco use date assessed 09/07/23 09/07/23 09:54 Patient Tobacco Use Status Former Tobacco user 09/07/23 09:54 Tobacco use type Cigarette 09/07/23 09:54 e-Cigarette/Vaping Use Never Used 09/07/23 09:54 PHQ-9: PHQ-9 Score PHQ-9: Total score 0 09/07/23 10:22 Thrive Assessment: Date of Thrive Assessment Date Thrive assessed 09/07/23 09/07/23 09:54 Currently or been in a relationship where the following occur: no concerns reported Const General: alert; No acute distress Eyes Conjunctivae: conjunctivae normal Resp Auscultation: clear to auscultation bilaterally Cardio Rate: regular rate Rhythm: regular rhythm GI Inspection: Yes normal to inspection Extrem General: Yes normal to inspection and No edema Office Meds Prolia 60 mg/mL subcutaneous syringe Performing Provider: Thong Matthews MD Performing Location: [facility] Administered by: Tawanna Galicia RN on 09/07/23 10:09 Dose Route Admin Location Dispensed Lot Number Expiration Date [place] Outreach Librarian 60 mg subcut left upper arm 1 mL [id number] 11/20/25 00352-083-70 [employer]GEN Immunizations pneumoc 20-eduardo conj-dip cr(PF) 0.5 mL IM syringe Performing Provider: Thong Matthews MD Performing Location: [facility] Administered by: Lindsay Novak CMA on 09/07/23 10:22 Dose Route Admin Location Dispensed Lot Number Expiration Date NDC Outreach Librarian 0.5 mL IM Right Deltoid 0.5 mL [id number] 07/22/24 1732-7268-61 [employer] VIS Given Date VIS Provided VIS Publication Date 09/07/23 Single Vaccine 21 Eligibility Eligibility Date Funding Source Not [facility] Eligible 09/07/23 Private Assessment and Plan Assessment & Plan (1) Osteoporosis: Comment: Prolia February 2023 Code(s): M81.0 - Age-related osteoporosis without current pathological fracture Plan: Continue on Prolia every 6 months (2) PAF (paroxysmal atrial fibrillation): Code(s): I48.0 - Paroxysmal atrial fibrillation Plan: Continue with anticoagulation and that has been started on flecainide 50 mg twice a day (3) Pacemaker: Code(s): Z95.0 - Presence of cardiac pacemaker Plan: Patient continues to follow-up with cardiology (4) Hypothyroid: Code(s): E03.9 - Hypothyroidism, unspecified Qualifiers: Hypothyroidism type: acquired Qualified Code(s): E03.9 - Hypothyroidism, unspecified Plan: Continue with thyroid medication 75 mcg once a day (5) Hypertension: Code(s): I10 - Essential (primary) hypertension Plan: Continue with blood pressure medication. Decrease salt intake and exercise has the atenolol 100 mg once a day and amlodipine 5 mg once a day (6) Hypercholesterolemia: Code(s): E78.00 - Pure hypercholesterolemia, unspecified Plan: Avoid fried foods, chicken skin, eggs, butter margarine, pastries and meat. Be it pork or beef they have a lot of cholesterol on rosuvastatin 10 mg at bedtime (7) Chronic kidney disease: Code(s): N18.9 - Chronic kidney disease, unspecified Plan: Keep well hydrated avoid NSAIDs. Orders: Orders AMB Denosumab Injection Patient Supplied Today M81.0 - Age-related osteoporosis without current pathological fracture Complete Blood Count Auto Diff Today I48.0 - Paroxysmal atrial fibrillation Comprehensive Met. Panel Today I48.0 - Paroxysmal atrial fibrillation XR DEXA axial skeleton Today M81.0 - Age-related osteoporosis without current pathological fracture Thyroid Stimulating Hormone Today M81.0 - Age-related osteoporosis without current pathological fracture Free T4 (Free Thyroxine) Today M81.0 - Age-related osteoporosis without current pathological fracture Hemoglobin A1c Today E78.00 - Pure hypercholesterolemia, unspecified Pneumococcal 20 Immunization Today Z23 - Encounter for immunization Coding Level of Care Code Est Pt Level 4 (78702) Diagnoses Osteoporosis M81.0 PAF (paroxysmal atrial fibrillation) I48.0 Pacemaker Z95.0 Acquired hypothyroidism E03.9 Hypothyroidism type: acquired Hypertension I10 Hypercholesterolemia E78.00 Chronic kidney disease N18.9
== END 2023-09-07 10:28 | disposition home or self-care (01) ==
PROVIDERS: PCP Internal Medicine; Visit Provider Internal Medicine
DX: M81.0 Age-related osteoporosis without current pathological fracture (principal); I48.0 Paroxysmal atrial fibrillation; Z95.0 Presence of cardiac pacemaker; Z23 Encounter for immunization; E03.9 Hypothyroidism, unspecified; I12.9 Hypertensive chronic kidney disease with stage 1 through stage 4 chronic kidney disease, or unspecified chronic kidney disease; E78.00 Pure hypercholesterolemia, unspecified; N18.9 Chronic kidney disease, unspecified
CPT/HCPCS: 90471; 90677; 96372; 99214; J0897

== ENCOUNTER 2023-09-20 10:13 | Outpatient (AMB) | payer MEDICARE, SELFPAY ==
[2023-09-20 10:28] VITALS: BP 110/59; PULSE 56; BMI 21.8
--- NOTE | 2023-09-20 10:28 | MHC.OFFVIS ---
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 Accompanied by: Self / Same As Patient Allergies No Known Allergies [No Known Allergies*] Allergy (Verified 09/07/23 09:49) Medication List - Last Reconciled 09/20/23 by Levon Santiago MD amlodipine 5 mg PO DAILY 90 days atenolol 100 mg PO DAILY cholecalciferol (vitamin D3) 25 mcg PO DAILY cyanocobalamin (vitamin B-12) mcg PO DAILY denosumab (Prolia) 60 mg subcut [id number] flecainide 50 mg PO BID furosemide 20 mg PO DAILY 90 days levothyroxine 75 mcg PO DAILY multivitamin 1 tab PO DAILY rivaroxaban 15 mg PO DAILY 90 days rosuvastatin 10 mg PO BEDTIME HPI Comments Details: 78-year-old female here for follow-up. She was previously seeing Dr. Ortiz. She has background history of permanent pacemaker placement. I reviewed her Holter monitor from 2014 which showed paroxysmal atrial fibrillation and pauses in excess of 4 seconds. She does not remember much of her history. We do not have records available. She said she was told by Dr. Ortiz that she needs the pacemaker and had pacemaker placement. She also was on amiodarone 200 mg once a day. She was on Xarelto for AFib. No bleeding issues. She denies chest pain or shortness of breath. She was referred for blood workup because she was on amiodarone. Her liver function test was abnormal. Looking back her test has been abnormal. She said she has seen gastroenterology in the past and was told that she has fatty liver disease. She is denying any symptoms as before. No bleeding issues. After discussion she was taken off the amiodarone. Today she returns for follow-up. She has been walking her dog 3 times a day. She has no dyspnea or chest discomfort. No palpitations during the day but at nighttime she occasionally feels palpitations. She is saying she is not bothered by them. She is taking Xarelto regularly without any bleeding concerns. Overall she feels great. Blood pressure control is good. EKG showing sinus rhythm. 05/10/2023: She returns for follow-up. She has been doing well. Occasionally feels palpitations. Her pacemaker interrogation in the past has shown episodes of atrial fibrillation which were self-limiting. She was previously on amiodarone but due to elevated liver enzymes the amiodarone was stopped. We decided to start her on Multaq but there is interaction with Xarelto and I felt that stopping Xarelto is not the best thing to do currently. After discussion we have decided to start her flecainide 50 mg twice a day. 09/20/23: She returns for follow up. She recently had a viral illness with runny nose and body aches and has recovered from that. She said she was short of breath doing that but has no symptoms now. In particular no chest discomfort shortness of breath. She has been on flecainide for atrial fibrillation. Interestingly her ECG today is showing T-wave inversions which are new in the inferior and anterolateral leads. She has no symptoms. In particular no CP or SOB. She had a viral illness 2 weeks ago and is saying she has recovered from that. [facility] Medical History (Updated 09/20/23 @ 10:53 by Levon Santiago MD) History of shingles History of atrial fibrillation Hx of tachycardia-bradycardia syndrome Pacemaker Hypothyroid Humerus shaft fracture Dizziness Decreased hearing of both ears Breast cancer screening Osteoporosis screening Colon cancer screening Encounter for annual wellness exam in Medicare patient Dyspnea on exertion Restrictive lung disease Abnormal PFTs (pulmonary function tests) Fatty liver Hypercholesterolemia Chronic kidney disease T12 compression fracture Surgical History History of open reduction and internal fixation (ORIF) procedure History of lumpectomy of right breast Hx of colonoscopy History of permanent cardiac pacemaker placement History of back surgery Family History Father No problems noted. Mother No problems noted. Brother Prostate cancer Sister No problems noted. Son No problems noted. Daughter No problems noted. Family/Other Mental health disorder Substance use disorder Social History Housing: House Alcohol intake: current Alcohol intake frequency: a few times a week Patient Tobacco Use Status: Former Tobacco user Quit Date: 1981 Tobacco use type: Cigarette Years Smoked: 18 +/- e-Cigarette/Vaping Use: Never Used Second Hand Smoke Exposure: No service: No Current occupational status: retired Current occupation: right handed Current occupational exposures/hazards: No Cognitive needs: No Hearing needs: No Vision needs: Yes Review of Systems Const Denies chills, Denies fatigue, Denies fever(s), Denies frequent falls, Denies weakness, Denies weight gain and Denies weight loss ENT Denies dizziness Card Denies chest pain, Denies leg edema, Denies lightheadedness, Denies palpitations, Denies dyspnea and Denies dyspnea on exertion Resp Denies cough, Denies dyspnea and Denies dyspnea on exertion GI Denies hematochezia Musc Denies abnormal gait, Denies muscle weakness, Denies numbness, Denies radiating pain into limb and Denies tingling Neuro Denies abnormal gait, Denies dizziness, Denies frequent falls, Denies numbness, Denies tingling and Denies weakness Endo Denies fatigue and Denies palpitations Physical Exam Vital Signs: Last Vital Signs Pulse 56 09/20/23 10:28 BP 110/59 L 09/20/23 10:28 BMI result Body Mass Index 21.8 GENERAL APPEARANCE: in no acute distress. NECK/THYROID: no carotid bruit, no jugular venous distention. SKIN: no suspicious lesions, warm and dry. HEART: no murmurs, regular rate and rhythm, S1, S2 normal. LUNGS: clear to auscultation bilaterally. ABDOMEN: normal, bowel sounds present, soft, nontender, nondistended. EXTREMITIES: no clubbing, cyanosis, or edema. PERIPHERAL PULSES: equal. NEUROLOGIC: nonfocal, alert and oriented. PSYCH: mood/affect full range. Office Procedures EKG Details: Sinus bradycardia 56 beats per minute, normal axis, inferior T-wave inversions, anterolateral T-wave inversions, consider ischemia, QTC 414 milliseconds. [id number], Complete Assessment & Plan Assessment & Plan (1) PAF (paroxysmal atrial fibrillation): Code(s): I48.0 - Paroxysmal atrial fibrillation Category: Medical (2) Pacemaker: Code(s): Z95.0 - Presence of cardiac pacemaker Category: Medical (3) Hypertension: Code(s): I10 - Essential (primary) hypertension Category: Medical (4) T wave inversion in EKG: Code(s): R94.31 - Abnormal electrocardiogram [ECG] [EKG] Category: Medical Plan Pleasant 78 year old here for f/u. She has PAF and is on Flecainide. ECG is showing inferior and anterolateral T wave inversions. Troponin is normal. We have performed echo which is also not showing any regional wall motion abnormalities. Etiology can be ischemia vs pacing related T wave changes. Will arrange stress echo. Advised her to hold flecainide for now. Orders: Orders Troponin-I High Sensitivity Today R94.31 - Abnormal electrocardiogram [ECG] [EKG] B Type Natriuretic Peptide Today R94.31 - Abnormal electrocardiogram [ECG] [EKG] CA echo transthorac w con Today R94.31 - Abnormal electrocardiogram [ECG] [EKG] Coding Level of Care Code Est Pt Level 5 (40730) Diagnoses PAF (paroxysmal atrial fibrillation) I48.0 Pacemaker Z95.0 Hypertension I10 T wave inversion in EKG R94.31 CPT Codes EKG - CPT: 44540-[id number], Complete ([id number])
== END 2023-09-20 11:15 | disposition home or self-care (01) ==
PROVIDERS: PCP Internal Medicine; Visit Provider Internal Medicine Cardiovascular Disease
DX: I48.0 Paroxysmal atrial fibrillation (principal); R94.31 Abnormal electrocardiogram [ECG] [EKG]; Z95.0 Presence of cardiac pacemaker; I10 Essential (primary) hypertension; I34.2 Nonrheumatic mitral (valve) stenosis; I36.1 Nonrheumatic tricuspid (valve) insufficiency
CPT/HCPCS: 93010; 93306; 99214

== ENCOUNTER → 2023-09-20 10:13 | Outpatient (BNVA) | payer MEDICARE, SELFPAY | PROVIDERS: PCP Internal Medicine; Visit Provider Internal Medicine Cardiovascular Disease ==

== ENCOUNTER → 2023-09-20 14:35 | Outpatient (REF) | payer MEDICARE, SELFPAY ==
--- NOTE | 2023-09-20 14:38 | CA_ITS ---
Transthoracic Echocardiogram Patient (Last, First, Middle): Luzma Fraga A Gender: Female Date of : 1945 Age: 78 Procedure Date: 09/20/2023 Procedure Type: Transthoracic Echocardiogram Location: OP Height: 147.32 cm Weight: 46.27 kg BSA: 1.37 m2 Heart Rate: 56 bpm BP: 117 / 80 mmHg Crm Functional Analyst: BRANDON Dooley MD: Levon Santiago MD Telephone Information Supervisor: Levon Santiago MD Symptoms: R94.31 - Abnormal electrocardiogram [ECG] [EKG] Study Quality: Fair ECG Rhythm: Bradycardia Conclusions: - Normal left ventricular size, thickness, systolic function, and wall motion. The visually estimated ejection fraction is between 55-60%. Diastolic function is normal for age. - Normal right ventricular cavity size and systolic function. There is a pacemaker wire seen in the right ventricle. Findings Left Ventricle Normal left ventricular size, thickness, systolic function, and wall motion. The visually estimated ejection fraction is between 55-60%. Diastolic function is normal for age. Right Ventricle Normal right ventricular cavity size and systolic function. There is a pacemaker wire seen in the right ventricle. Atria Both atria are normal in size. Aortic Valve Normal aortic valve structure and function. There is no aortic valve stenosis. There is no aortic valve regurgitation. Mitral Valve Normal mitral valve structure and function. There is no mitral valve regurgitation. There is trace mitral valve stenosis. Pulmonic Valve The pulmonic valve is likely normal. Tricuspid Valve Normal tricuspid valve structure. There is mild tricuspid valve regurgitation. Normal right atrial pressure. There is no evidence of pulmonary hypertension. Great Vessels All visible segments of the aorta are normal in size. The visualized portions of the pulmonary artery and branches are normal. Venous The inferior vena cava is normal in size and collapses greater than 50% with inspiration. Pericardium/Pleural There is no evidence of pericardial effusion. Prior Study Comparison No significant change compared to prior study dated: 11/04/2022. Measurements 2D Linear Measurements IVSd: 0.70 0.6-0.9/0.6-1.0 cm LVIDd: 4.03 3.9-5.3/4.2-5.9 cm LVIDd Index: 2.94 2.4-3.2/2.2-3.1 cm/m2 LVIDs: 2.69 2.0-3.6 cm LVPWd: 0.85 0.7-1.1 cm LA Diam: 3.30 2.7-3.8/3.0-4.0 cm LAIDs Index: 2.41 1.5-2.3 cm/m2 LV Mass: 112.04 67-162/88-224 g LV Mass Index: 81.78 43-95/49-115 g/m2 LVOT Diam: 1.90 3.0+(-)1.3 cm 2D Systolic Function EF 4C: 51.70 >55% EF 2C: 55.20 >55% EF BiP: 53.80 >55% Mitral Valve MV Pk E: 0.48 MV PK A: 0.74 MV Decel Time: 262.00 E/A: 0.60 E'Lateral: 5.87 E'Medial: 3.92 E/E' Med: 12.10 E/E' Lat: 8.10 PHT: 77.00 MVA PHT: 2.86 Decel [place]: 1.82 Aortic Valve AoV Pk Oseas: 0.97 AoV Mn Oseas: 0.69 AoV VTI: 0.22 AoV Pk Grad: 4.00 Aov Mn Grad: 2.00 TONYA Cont.VTI: 2.00 LVOT LVOT Pk Oseas: 0.68 LVOT Mn Oseas: 0.47 LVOT VTI: 0.16 LVOT Pk Grad: 2.00 LVOT Mn Grad: 1.00 LVOT Diam: 1.90 LVOT Area: 2.84 Diastolic Function MV Pk E: 0.48 MV Pk A: 0.74 E/A: 0.60 E'Medial: 3.92 E/E' Med: 12.10 E' Laterial: 5.87 E/E' Lat: 8.10 Right Ventricle TAPSE (mm): 21.30 TVS' Oseas: 9.79 Tricuspid Valve TR Pk Oseas: 2.17 TR Pk Grad: 19.00 RA Press: 3.00 RVSP: 22.00 Great Vessels Aorta Sinus of Valsalva: 3.00 2.0-3.5 cm Ao Asc: 3.20 2.1-3.4 cm Pulmonary Valve PV Pk Oseas: 0.75 Peak PV Grad: 2.00 Updated in Other Vendor System with Status of Final Levon Santiago MD electronically signed on 09/20/2023 6:43:55 PM with status of Final
[2023-09-20 17:17] LABS: Troponin-I High Sensitivity < 2.7 ng/L (<3.5-17.0)
[2023-09-20 17:39] LABS: B Type Natriuretic Peptide 108 pg/mL (<100)
== END ==
LOC: HO.CARD 14:35
PROVIDERS: Absent Provider Internal Medicine Cardiovascular Disease; PCP Internal Medicine; Visit Provider Internal Medicine Cardiovascular Disease
DX: R94.31 Abnormal electrocardiogram [ECG] [EKG] (principal)
CPT/HCPCS: 36415; 83880; 84484; 93005; 93306; 99212

== ENCOUNTER → 2023-09-22 10:47 | Outpatient (REF) | payer MEDICARE, SELFPAY ==
--- NOTE | 2023-09-22 10:49 | CA_ITS ---
Acquisition Time: 2023-09-22 11:01:12 Total Exercise Time: 00:02:35 Test Indications: ABN EKG, AFIB Medications: SEE H Protocol: MARK Max HR: 110 BPM 76% of Pred: 143 BPM Max BP: 142/084 mmHG Max Work Load: 4.6 METS Exercise stress test exercose 2 min 35 sec of Mark protocol achieivng approximaltely 70% MPHR, with request to stop due to fatigue, with moderate SOB, no chest discomfort, with isolated PVC, without peak BP checked due to safety, BP at 3 min 27 sec of recovery 142/84 , with downsloping in leads aVF and V3 at achieved workload. Nondiagnoisitic EKG. Breathing reutrned to normal with rest. Echo images obtained by tech at rest and immediately post peak exercise with dyspnea. Subopitmal test. Test reviewed with Dr. Seth. Patient took atenolol morning of test. Referred By: Levon Santiago Overread By: Jayne Oquendo
== END ==
LOC: HO.CARD 10:47
PROVIDERS: PCP Internal Medicine; Visit Provider Internal Medicine Cardiovascular Disease
DX: R94.31 Abnormal electrocardiogram [ECG] [EKG] (principal)
CPT/HCPCS: 93350; Q9957

== ENCOUNTER → 2023-09-22 10:49 | Outpatient (BNV) | payer MEDICARE, SELFPAY | PROVIDERS: PCP Internal Medicine; Visit Provider Nurse Practitioner | DX: R06.02 Shortness of breath (principal); I49.3 Ventricular premature depolarization; R94.31 Abnormal electrocardiogram [ECG] [EKG] | CPT/HCPCS: 93016; 93018; 93350; 93352 ==

== ENCOUNTER 2023-09-23 08:26 | Outpatient (REF) | payer MEDICARE, SELFPAY ==
--- NOTE | ~2023-09-23 | MM_ITS ---
EXAMINATION: BONE DENSITOMETRY CLINICAL INDICATION: Age-related osteoporosis without current pathological fracture. COMPARISON: Baseline BD dated 08/20/2021. TECHNIQUE: Using a AcuFocus DXA System (software version: 13.1) manufactured by [employer], dual-energy x-ray absorptiometry was performed of the lumbar spine and left hip. The images are of good technical quality. Summary results are attached. FINDINGS: LEFT FEMUR, NECK: Current: BMD 0.494 g/cm2, Z-score -1.5, T-score -3.9, osteoporosis. Baseline: BMD 0.473 g/cm2. LEFT FEMUR, TOTAL: Current: BMD 0.560 g/cm2, Z-score -1.3, T-score -3.6, osteoporosis, 4.5% increase from baseline (<5% change is not significant). Baseline: BMD 0.536 g/cm2. AP SPINE L2-L3 (excluding L1 and L4): The data of L1-L4 has been changed to exclude the L1 and L4 vertebral bodies, because metallic artifact at these levels may cause overestimation of lumbar spine density. Current: BMD 0.733 g/cm2, Z-score -1.5, T-score -3.9, osteoporosis, 11.6% increase from baseline (<5% change is not significant). Baseline: BMD 0.657 g/cm2. IDENTIFIED RISK FACTORS: Menopause, osteoporosis, renal, history of fracture (adult), height loss. HISTORY OF FRACTURE: Spine, wrist. MEDICATIONS: Calcium, vitamin D, Prolia. MM/XR DEXA axial skeleton IMPRESSION: 1. DIAGNOSIS: Severe osteoporosis based on the lowest T-score value of -3.9 in the femur neck and lumbar spine and history of fracture of spine and wrist applying World Health Organization criteria. 2. 10-YEAR FRACTURE RISK PREDICTION, FRAX: According to the guidelines, FRAX calculation should only be performed on patients in the osteopenia bone density category. Therefore, FRAX was not performed on this patient. 3. Treatment Recommendations: NOF guidelines recommend consideration for treatment in postmenopausal women and men age 50 and older presenting with the following: -A hip or vertebral (clinical or morphometric) fracture. -T-score less than or equal to -2.5 at the femoral neck or spine after appropriate evaluation to exclude secondary causes. -Low bone mass at the hip or spine and a 10-year fracture probability by FRAX of greater than or equal to 3% for hip fracture or greater than or equal to 20% for major osteoporotic fracture based on the [place] adapted WHO algorithm. 4. Other Recommendations: All treatment decisions require clinical judgment and consideration of individual patient factors, including patient preferences, comorbidities, previous drug use, risk factors not captured in the FRAX model (e.g. frailty, falls, vitamin D deficiency, increased bone turnover, interval significant decline in bone density) and possible under or overestimation of fracture risk by FRAX. Additional medical evaluation for secondary cause of low bone mineral density may be appropriate. FUTURE SCAN RECOMMENDATION: People with diagnosed cases of osteoporosis or at high risk for fracture should have regular bone mineral density tests. For patients eligible for Medicare, routine testing is allowed once every 2 years. The testing frequency can be increased to one year for patients who have rapidly progressing disease, those who are receiving or discontinuing medical therapy to restore bone mass, or have additional risk factors.
== END 2023-09-23 08:27 | disposition home or self-care (01) ==
LOC: HO.MAMMO 08:26
PROVIDERS: PCP Internal Medicine; Visit Provider Internal Medicine
DX: Z13.820 Encounter for screening for osteoporosis (principal); Z78.0 Asymptomatic menopausal state; M81.0 Age-related osteoporosis without current pathological fracture
CPT/HCPCS: 77080

== ENCOUNTER → 2023-10-01 23:59 | Outpatient (BNV) | payer MEDICARE, SELFPAY ==
--- NOTE | 2023-11-09 15:19 | MHC.OFFVIS ---
Intake Visit Reasons: remote HF monitoring- [employer] Allergies No Known Allergies [No Known Allergies*] Allergy (Verified 09/07/23 09:49) PFS Medical History (Updated 09/20/23 @ 10:53 by eLvon Santiago MD) History of shingles History of atrial fibrillation Hx of tachycardia-bradycardia syndrome Pacemaker Hypothyroid Humerus shaft fracture Dizziness Decreased hearing of both ears Breast cancer screening Osteoporosis screening Colon cancer screening Encounter for annual wellness exam in Medicare patient Dyspnea on exertion Restrictive lung disease Abnormal PFTs (pulmonary function tests) Fatty liver Hypercholesterolemia Chronic kidney disease T12 compression fracture Surgical History History of open reduction and internal fixation (ORIF) procedure History of lumpectomy of right breast Hx of colonoscopy History of permanent cardiac pacemaker placement History of back surgery Family History Father No problems noted. Mother No problems noted. Brother Prostate cancer Sister No problems noted. Son No problems noted. Daughter No problems noted. Family/Other Mental health disorder Substance use disorder Social History Housing: House Alcohol intake: current Alcohol intake frequency: a few times a week Patient Tobacco Use Status: Former Tobacco user Tobacco use type: Cigarette Years Smoked: 18 +/- e-Cigarette/Vaping Use: Never Used Second Hand Smoke Exposure: No service: No Current occupational status: retired Current occupation: right handed Current occupational exposures/hazards: No Cognitive needs: No Hearing needs: No Vision needs: Yes Office Procedures Cardiac Device Check Cardiac Device Check Details: Heart failure monitoring. Overall stable thoracic impedance. Good battery life. [id number] Cardiac Device Interrogation, cardio physiologic monitor Procedure code (CPT) selection complete Assessment & Plan Assessment & Plan (1) Pacemaker: Code(s): Z95.0 - Presence of cardiac pacemaker Category: Medical Plan: Coding Level of Care Code Procedure Only Diagnoses Pacemaker Z95.0 CPT Codes Cardiac Device Check - Cardiac Device 15: [id number] Cardiac Device Interrogation, cardio physiologic monitor ([id number])
== END ==
PROVIDERS: PCP Internal Medicine; Visit Provider Internal Medicine Cardiovascular Disease
DX: Z45.018 Encounter for adjustment and management of other part of cardiac pacemaker (principal)
CPT/HCPCS: 93297

== ENCOUNTER → 2023-12-13 23:59 | Outpatient (BNV) | payer MEDICARE, SELFPAY ==
--- NOTE | 2023-12-20 11:34 | MHC.OFFVIS ---
Intake Visit Reasons: remote HF monitoring- [employer] Allergies No Known Allergies [No Known Allergies*] Allergy (Verified 09/07/23 09:49) PFSH Medical History (Updated 09/20/23 @ 10:53 by Levon Santiago MD) History of shingles History of atrial fibrillation Hx of tachycardia-bradycardia syndrome Pacemaker Hypothyroid Humerus shaft fracture Dizziness Decreased hearing of both ears Breast cancer screening Osteoporosis screening Colon cancer screening Encounter for annual wellness exam in Medicare patient Dyspnea on exertion Restrictive lung disease Abnormal PFTs (pulmonary function tests) Fatty liver Hypercholesterolemia Chronic kidney disease T12 compression fracture Surgical History History of open reduction and internal fixation (ORIF) procedure History of lumpectomy of right breast Hx of colonoscopy History of permanent cardiac pacemaker placement History of back surgery Family History Father No problems noted. Mother No problems noted. Brother Prostate cancer Sister No problems noted. Son No problems noted. Daughter No problems noted. Family/Other Mental health disorder Substance use disorder Social History Housing: House Alcohol intake: current Alcohol intake frequency: a few times a week Patient Tobacco Use Status: Former Tobacco user Tobacco use type: Cigarette Years Smoked: 19 +/- e-Cigarette/Vaping Use: Never Used Second Hand Smoke Exposure: No service: No Current occupational status: retired Current occupation: right handed Current occupational exposures/hazards: No Cognitive needs: No Hearing needs: No Vision needs: Yes Office Procedures Cardiac Device Check Cardiac Device Check Details: [employer] HF No new alerts Stable thoracic impedance. [id number] Cardiac Device Interrogation, cardio physiologic monitor Procedure code (CPT) selection complete Assessment & Plan Assessment & Plan (1) Pacemaker: Code(s): Z95.0 - Presence of cardiac pacemaker Category: Medical Plan Orders: Orders AMB Cardiac Device Follow-up 12/13/23 Z95.0 - Presence of cardiac pacemaker Coding Level of Care Code Procedure Only Diagnoses Pacemaker Z95.0 CPT Codes Cardiac Device Check - Cardiac Device 15: [id number] Cardiac Device Interrogation, cardio physiologic monitor ([id number])
== END ==
PROVIDERS: PCP Internal Medicine; Visit Provider Internal Medicine Cardiovascular Disease
DX: Z45.018 Encounter for adjustment and management of other part of cardiac pacemaker (principal)
CPT/HCPCS: 93297

== ENCOUNTER → 2023-12-28 23:59 | Outpatient (BNV) | payer MEDICARE, SELFPAY ==
--- NOTE | 2023-12-29 21:09 | A.OFFVIS_ITS ---
Intake Visit Reasons: Remote device check- [employer] Allergies No Known Allergies [No Known Allergies*] Allergy (Verified 09/07/23 09:49) [facility] Medical History (Updated 09/20/23 @ 10:53 by Levon Santiago MD) History of shingles History of atrial fibrillation Hx of tachycardia-bradycardia syndrome Pacemaker Hypothyroid Humerus shaft fracture Dizziness Decreased hearing of both ears Breast cancer screening Osteoporosis screening Colon cancer screening Encounter for annual wellness exam in Medicare patient Dyspnea on exertion Restrictive lung disease Abnormal PFTs (pulmonary function tests) Fatty liver Hypercholesterolemia Chronic kidney disease T12 compression fracture Surgical History History of open reduction and internal fixation (ORIF) procedure History of lumpectomy of right breast Hx of colonoscopy History of permanent cardiac pacemaker placement History of back surgery Family History Father No problems noted. Mother No problems noted. Brother Prostate cancer Sister No problems noted. Son No problems noted. Daughter No problems noted. Family/Other Mental health disorder Substance use disorder Social History Housing: House Alcohol intake: current Alcohol intake frequency: a few times a week Patient Tobacco Use Status: Former Tobacco user Tobacco use type: Cigarette Years Smoked: 19 +/- e-Cigarette/Vaping Use: Never Used Second Hand Smoke Exposure: No service: No Current occupational status: retired Current occupation: right handed Current occupational exposures/hazards: No Cognitive needs: No Hearing needs: No Vision needs: Yes Office Procedures Cardiac Device Check Cardiac Device Check Details: PPM Battery 45%. No new alerts. [id number] Cardiac Device Check, pacemaker dual lead Procedure code (CPT) selection complete Assessment & Plan Assessment & Plan (1) Pacemaker: Code(s): Z95.0 - Presence of cardiac pacemaker Category: Medical Plan Orders: Orders AMB Cardiac Device Follow-up 12/28/23 Z95.0 - Presence of cardiac pacemaker Coding Level of Care Code Procedure Only Diagnoses Pacemaker Z95.0 CPT Codes Cardiac Device Check - Cardiac Device 2: [id number] Cardiac Device Check, pacemaker dual lead ([id number])
== END ==
PROVIDERS: PCP Internal Medicine; Visit Provider Internal Medicine Cardiovascular Disease
DX: Z45.018 Encounter for adjustment and management of other part of cardiac pacemaker (principal)
CPT/HCPCS: 93294

== ENCOUNTER 2024-01-03 09:07 | Outpatient (AMB) | payer MEDICARE, SELFPAY ==
[2024-01-03 09:23] VITALS: BP 120/62; PULSE 62; BMI 21.9
--- NOTE | 2024-01-03 09:23 | MHC.OFFVIS ---
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 Required: No Accompanied by: Self / Same As Patient Allergies No Known Allergies [No Known Allergies*] Allergy (Verified 09/07/23 09:49) Medication List - Last Reconciled 01/03/24 by Levon Santiago MD amlodipine 5 mg PO DAILY 90 days atenolol 100 mg PO .once daily cholecalciferol (vitamin D3) 25 mcg PO DAILY cyanocobalamin (vitamin B-12) mcg PO DAILY denosumab (Prolia) 60 mg subcut [id number] flecainide 50 mg PO Q12H furosemide 20 mg PO DAILY 90 days levothyroxine 75 mcg PO DAILY multivitamin 1 tab PO DAILY rivaroxaban 15 mg PO DAILY 90 days rosuvastatin 10 mg PO BEDTIME HPI Comments Details: 78-year-old female here for follow-up. She was previously seeing Dr. Ortiz. She has background history of permanent pacemaker placement. I reviewed her Holter monitor from 2014 which showed paroxysmal atrial fibrillation and pauses in excess of 4 seconds. She does not remember much of her history. We do not have records available. She said she was told by Dr. Ortiz that she needs the pacemaker and had pacemaker placement. She also was on amiodarone 200 mg once a day. She was on Xarelto for AFib. No bleeding issues. She denies chest pain or shortness of breath. She was referred for blood workup because she was on amiodarone. Her liver function test was abnormal. Looking back her test has been abnormal. She said she has seen gastroenterology in the past and was told that she has fatty liver disease. She is denying any symptoms as before. No bleeding issues. After discussion she was taken off the amiodarone. Today she returns for follow-up. She has been walking her dog 3 times a day. She has no dyspnea or chest discomfort. No palpitations during the day but at nighttime she occasionally feels palpitations. She is saying she is not bothered by them. She is taking Xarelto regularly without any bleeding concerns. Overall she feels great. Blood pressure control is good. EKG showing sinus rhythm. 05/10/2023: She returns for follow-up. She has been doing well. Occasionally feels palpitations. Her pacemaker interrogation in the past has shown episodes of atrial fibrillation which were self-limiting. She was previously on amiodarone but due to elevated liver enzymes the amiodarone was stopped. We decided to start her on Multaq but there is interaction with Xarelto and I felt that stopping Xarelto is not the best thing to do currently. After discussion we have decided to start her flecainide 50 mg twice a day. 09/20/23: She returns for follow up. She recently had a viral illness with runny nose and body aches and has recovered from that. She said she was short of breath doing that but has no symptoms now. In particular no chest discomfort shortness of breath. She has been on flecainide for atrial fibrillation. Interestingly her ECG today is showing T-wave inversions which are new in the inferior and anterolateral leads. She has no symptoms. In particular no CP or SOB. She had a viral illness 2 weeks ago and is saying she has recovered from that. 01/03/24: She is here for follow-up. She has no symptoms. Exercising/walking daily without any complaints. On last visit she had T-wave inversions. She had a exercise stress echo where she was able to exercise to 4.6 metabolic equivalents without any significant ECG changes or wall motion abnormality on stress echocardiography. Echocardiography also showed normal biventricular function. She was not complaining of any symptoms at that time other than recent viral illness. Today ECG appears normal. Unsure what was the cause but sometimes we see T-wave inversions after cardiac pacing and she has a pacemaker so it is possible that these were memory T-waves. [facility] Medical History (Updated 09/20/23 @ 10:53 by Levon Santiago MD) History of shingles History of atrial fibrillation Hx of tachycardia-bradycardia syndrome Pacemaker Hypothyroid Humerus shaft fracture Dizziness Decreased hearing of both ears Breast cancer screening Osteoporosis screening Colon cancer screening Encounter for annual wellness exam in Medicare patient Dyspnea on exertion Restrictive lung disease Abnormal PFTs (pulmonary function tests) Fatty liver Hypercholesterolemia Chronic kidney disease T12 compression fracture Surgical History History of open reduction and internal fixation (ORIF) procedure History of lumpectomy of right breast Hx of colonoscopy History of permanent cardiac pacemaker placement History of back surgery Family History Father No problems noted. Mother No problems noted. Brother Prostate cancer Sister No problems noted. Son No problems noted. Daughter No problems noted. Family/Other Mental health disorder Substance use disorder Social History Housing: House Alcohol intake: current Alcohol intake frequency: a few times a week Patient Tobacco Use Status: Former Tobacco user Tobacco use type: Cigarette Years Smoked: 19 +/- e-Cigarette/Vaping Use: Never Used Second Hand Smoke Exposure: No service: No Current occupational status: retired Current occupation: right handed Current occupational exposures/hazards: No Cognitive needs: No Hearing needs: No Vision needs: Yes Review of Systems Const Denies chills, Denies fatigue, Denies fever(s), Denies frequent falls, Denies weakness, Denies weight gain and Denies weight loss ENT Denies dizziness Card Denies chest pain, Denies leg edema, Denies lightheadedness, Denies palpitations, Denies dyspnea and Denies dyspnea on exertion Resp Denies cough, Denies dyspnea and Denies dyspnea on exertion GI Denies hematochezia Musc Denies abnormal gait, Denies muscle weakness, Denies numbness, Denies radiating pain into limb and Denies tingling Neuro Denies abnormal gait, Denies dizziness, Denies frequent falls, Denies numbness, Denies tingling and Denies weakness Endo Denies fatigue and Denies palpitations Physical Exam Vital Signs: Last Vital Signs Pulse 62 01/03/24 09:23 BP 120/62 01/03/24 09:23 BMI result Body Mass Index 21.9 GENERAL APPEARANCE: in no acute distress. NECK/THYROID: no carotid bruit, no jugular venous distention. SKIN: no suspicious lesions, warm and dry. HEART: no murmurs, regular rate and rhythm, S1, S2 normal. LUNGS: clear to auscultation bilaterally. ABDOMEN: normal, bowel sounds present, soft, nontender, nondistended. EXTREMITIES: no clubbing, cyanosis, or edema. PERIPHERAL PULSES: equal. NEUROLOGIC: nonfocal, alert and oriented. PSYCH: mood/affect full range. Office Procedures EKG Details: Sinus rhythm 62 beats per minute, normal axis, normal ECG, QTC 446 milliseconds. [id number], Complete Assessment & Plan Assessment & Plan (1) Hypertension: Code(s): I10 - Essential (primary) hypertension Category: Medical (2) PAF (paroxysmal atrial fibrillation): Code(s): I48.0 - Paroxysmal atrial fibrillation Category: Medical (3) Pacemaker: Code(s): Z95.0 - Presence of cardiac pacemaker Category: Medical Plan 78-year-old female here for follow-up. She has known history of paroxysmal atrial fibrillation. She was previously on amiodarone but had some elevated liver enzymes and we decided to stop the amiodarone. She was subsequently started on flecainide and has been stable since then. She did have some T-wave changes but these have improved. No abnormalities were seen on stress test or echocardiography. She also has no symptoms. She is walking daily and denies any chest discomfort shortness of breath. Blood pressure is well controlled. Clinically stable and will see us back in 6 months. Thank you for allowing me to participate in the care of your patient. Please feel free to contact me if you have any questions. Coding Level of Care Code Est Pt Level 4 (57381) Diagnoses Hypertension I10 PAF (paroxysmal atrial fibrillation) I48.0 Pacemaker Z95.0 CPT Codes EKG - CPT: 61534-[id number], Complete ([id number])
== END 2024-01-03 09:40 | disposition home or self-care (01) ==
PROVIDERS: PCP Internal Medicine; Visit Provider Internal Medicine Cardiovascular Disease
DX: I10 Essential (primary) hypertension (principal); I48.0 Paroxysmal atrial fibrillation; Z95.0 Presence of cardiac pacemaker
CPT/HCPCS: 93010; 99214

== ENCOUNTER → 2024-01-03 09:07 | Outpatient (BNVA) | payer MEDICARE, SELFPAY | PROVIDERS: PCP Internal Medicine; Visit Provider Internal Medicine Cardiovascular Disease | DX: I48.0 Paroxysmal atrial fibrillation (principal); I10 Essential (primary) hypertension; Z95.0 Presence of cardiac pacemaker | CPT/HCPCS: 93005; 99212 ==

== ENCOUNTER → 2024-01-14 23:59 | Outpatient (BNV) | payer MEDICARE, SELFPAY ==
--- NOTE | 2024-01-25 19:09 | A.OFFVIS_ITS ---
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- [employer] Allergies No Known Allergies [No Known Allergies*] Allergy (Verified 09/07/23 09:49) [facility] Medical History (Updated 09/20/23 @ 10:53 by Levon Santiago MD) History of shingles History of atrial fibrillation Hx of tachycardia-bradycardia syndrome Pacemaker Hypothyroid Humerus shaft fracture Dizziness Decreased hearing of both ears Breast cancer screening Osteoporosis screening Colon cancer screening Encounter for annual wellness exam in Medicare patient Dyspnea on exertion Restrictive lung disease Abnormal PFTs (pulmonary function tests) Fatty liver Hypercholesterolemia Chronic kidney disease T12 compression fracture Surgical History History of open reduction and internal fixation (ORIF) procedure History of lumpectomy of right breast Hx of colonoscopy History of permanent cardiac pacemaker placement History of back surgery Family History Father No problems noted. Mother No problems noted. Brother Prostate cancer Sister No problems noted. Son No problems noted. Daughter No problems noted. Family/Other Mental health disorder Substance use disorder Social History Housing: House Alcohol intake: current Alcohol intake frequency: a few times a week Patient Tobacco Use Status: Former Tobacco user Tobacco use type: Cigarette Years Smoked: 19 +/- e-Cigarette/Vaping Use: Never Used Second Hand Smoke Exposure: No service: No Current occupational status: retired Current occupation: right handed Current occupational exposures/hazards: No Cognitive needs: No Hearing needs: No Vision needs: Yes Office Procedures Cardiac Device Check Cardiac Device Check Details: HF monitoring Stable thoracic impedance. [id number] Cardiac Device Interrogation, cardio physiologic monitor Procedure code (CPT) selection complete Assessment & Plan Assessment & Plan (1) Pacemaker: Code(s): Z95.0 - Presence of cardiac pacemaker Category: Medical Plan: Coding Level of Care Code Procedure Only Diagnoses Pacemaker Z95.0 CPT Codes Cardiac Device Check - Cardiac Device 15: [id number] Cardiac Device Interrogation, cardio physiologic monitor ([id number])
== END ==
PROVIDERS: PCP Internal Medicine; Visit Provider Internal Medicine Cardiovascular Disease
DX: Z45.018 Encounter for adjustment and management of other part of cardiac pacemaker (principal)
CPT/HCPCS: 93297

== ENCOUNTER 2024-03-07 09:39 | Outpatient (REF) | payer MEDICARE, SELFPAY ==
[2024-03-07 10:06] LABS: MANUAL DIFF FLAG NO
[2024-03-07 10:56] LABS: Basophils Absolute Auto 0.1 X10*3/uL (0.0-0.2); Basophils Percent Auto 0.6 % (0-2); Eosinophils Absolute Auto 0.1 X10*3/uL (0.0-0.4); Eosinophils Percent Auto 1.5 % (0-4); Hematocrit 42.5 % (37.0-47.0); Hemoglobin 14.4 g/dl (12.0-16.0); Imm Gran Abs Auto 0.04 X10*3/uL (0.00-0.03); Imm Gran Pct Auto 0.5 % (0.0-0.4); Lymphocytes Absolute Auto 1.4 X10*3/uL (1.2-4.9); Lymphocytes Percent Auto 17.5 % (20-40); Mean Corpuscular HGB Conc 33.9 g/dl (31.0-35.0); Mean Corpuscular Hemoglobin 33.6 pg (27.0-33.0); Mean Corpuscular Volume 99.3 fL (80.0-98.0); Mean Platelet Volume 10.5 fL (9.4-12.3); Monocytes Absolute Auto 0.7 X10*3/uL (0.1-1.2); Monocytes Percent Auto 8.1 % (2-11); Neutrophils Absolute Auto 5.8 x10*3/uL (2.0-8.3); Neutrophils Percent Auto 71.8 % (45-73); Platelet Count 214 X10*3/uL (160-400); Red Blood Count 4.28 X10*6/uL (4.20-5.50); Red Cell Distribution Width 12.3 % (11.0-16.0)
[2024-03-07 11:01] LABS: Estimated Average Glucose 103 mg/dL; Hemoglobin A1C 124.8898 umol/L; Hemoglobin A1c % 5.2 % (<6.0); Total Hemoglobin (HGBA1C) 3715.2336 umol/L
[2024-03-07 11:31] LABS: Alanine Aminotransferase 28 U/L (0-31); Albumin Level 4.2 g/dL (3.5-5.0); Alkaline Phosphatase 65 U/L (39-117); Anion Gap 14 (12-20); Aspartate Amino Transferase 30 U/L (5-31); Bilirubin Total 0.9 mg/dL (0.0-1.0); Blood Urea Nitrogen 21 mg/dL (9-16); Calcium 9.7 mg/dL (8.4-10.2); Carbon Dioxide 25 mmol/L (22-29); Chloride 109 mmol/L (96-108); Estimated Glomerular Filt Rate 59; Glucose Random 101 mg/dL (60-115); Sodium 144 mmol/L (135-145); Total Protein 7.4 g/dL (6.5-8.0)
[2024-03-07 11:53] LABS: Free T4 (Free Thyroxine) 1.19 ng/dL (0.71-1.85); Thyroid Stimulating Hormone 0.25 uIU/mL (0.32-4.0)
== END 2024-03-07 09:40 | disposition home or self-care (01) ==
LOC: HO.LAB 09:39
PROVIDERS: PCP Internal Medicine; Visit Provider Internal Medicine
DX: I48.0 Paroxysmal atrial fibrillation (principal); M81.0 Age-related osteoporosis without current pathological fracture; E78.00 Pure hypercholesterolemia, unspecified; Z13.1 Encounter for screening for diabetes mellitus
CPT/HCPCS: 36415; 80053; 83036; 84439; 84443; 85025

== ENCOUNTER 2024-03-14 09:25 | Outpatient (AMB) | payer MEDICARE, SELFPAY ==
--- NOTE | 2024-03-14 09:27 | MHC.PC.OV ---
Vital Signs 03/14/24 09:29 Height 4 ft 9.5 in Weight 101 lb 6 oz BMI 21.6 BP 100/68 Blood Pressure Location Lt brachial Position Sitting Pulse 57 Pulse Source Pulse Oximeter Pulse Oximetry (%) 98 Oxygen Delivery Method Room Air Intake Visit Reasons: Atrial fibrillation hypothyroid Intake Note: Patient is here to follow up on AFib, Hypothyroid. Integrated Pest Management Technician Required: No Supplemental Manager: Not Required per policy Accompanied by: Self / Same As Patient Allergies No Known Allergies [No Known Allergies*] Allergy (Verified 03/14/24 09:29) Tobacco use date assessed: 03/14/24 Fall risk assessment: No Falls in past year Last assessed Fall Risk: 03/14/24 Dental Screening Dental Screen Date: 09/07/23 HPI Atrial fibrillation hypothyroid HPI Details 78-year-old female with history of atrial fibrillation hypothyroid hypertension hypercholesterolemia chronic kidney disease and osteoporosis last seen in 09/11/2023. Patient's colonoscopy is up-to-date 2021 mammogram up-to-date May 2023 and as far as bone density up-to-date 10/11/2023. Patient continues to follow-up with cardiology has a history of permanent pacemaker placement having the atrial fibrillation with pauses of more than 4 seconds. On flecainide. PAtient was called recently monitor showing PAF andplaced on fleicanide 50 mg TID PFSH Medical History (Updated 03/14/24 @ 18:09 by Thong Matthews MD) History of shingles History of atrial fibrillation Hx of tachycardia-bradycardia syndrome Pacemaker Hypothyroid Humerus shaft fracture Dizziness Decreased hearing of both ears Breast cancer screening Osteoporosis screening Colon cancer screening Encounter for annual wellness exam in Medicare patient Dyspnea on exertion Restrictive lung disease Abnormal PFTs (pulmonary function tests) Fatty liver Hypercholesterolemia Chronic kidney disease T12 compression fracture Surgical History History of open reduction and internal fixation (ORIF) procedure History of lumpectomy of right breast Hx of colonoscopy History of permanent cardiac pacemaker placement History of back surgery Family History Father No problems noted. Mother No problems noted. Brother Prostate cancer Sister No problems noted. Son No problems noted. Daughter No problems noted. Family/Other Mental health disorder Substance use disorder Social History Housing: House Alcohol intake: current Alcohol intake frequency: a few times a week Patient Tobacco Use Status: Former Tobacco user Tobacco use type: Cigarette Years Smoked: 18 +/- e-Cigarette/Vaping Use: Never Used Second Hand Smoke Exposure: No service: No Current occupational status: retired Current occupation: right handed Current occupational exposures/hazards: No Cognitive needs: No Hearing needs: No Vision needs: Yes (Glasses) Questionnaire Thrive Questionnaire Date Thrive assessed: 09/07/23 KYLAH-7 AMB Questionnaire KYLAH-7 Date KYLAH - 7 assessed: 09/07/23 Source: Developed by Drs. Kameron Joyner, Miladis Gauthier, Oj Casillas and colleagues, with an educational gabriella from [employer]. Physical exam (Primary Care) Vital Signs: Last Vital Signs Pulse 57 03/14/24 09:29 BP 100/68 03/14/24 09:29 Pulse Ox 98 03/14/24 09:29 Oxygen Delivery Method Room Air 03/14/24 09:29 BMI result Body Mass Index 21.6 Tobacco/Smoking Status: Tobacco use Status Tobacco use date assessed 03/14/24 03/14/24 09:37 Patient Tobacco Use Status Former Tobacco user 03/14/24 09:37 Tobacco use type Cigarette 03/14/24 09:37 e-Cigarette/Vaping Use Never Used 03/14/24 09:37 Thrive Assessment: Date of Thrive Assessment Date Thrive assessed 09/07/23 03/14/24 09:37 Const General: alert; No acute distress Eyes Conjunctivae: conjunctivae normal Resp Auscultation: clear to auscultation bilaterally Cardio Rate: regular rate Rhythm: regular rhythm GI Inspection: Yes normal to inspection Extrem General: Yes normal to inspection and No edema Office Meds Prolia 60 mg/mL subcutaneous syringe Performing Provider: Thong Matthews MD Performing Location: 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 Professor 60 mg subcut right upper arm 1 mL [id number] 04/22/26 08467-787-45 [employer]GEN Coding Level of Care Code Est Pt Level 4 (07555) Complex EM visit Add On G2211 Diagnoses PAF (paroxysmal atrial fibrillation) I48.0 Pacemaker Z95.0 Acquired hypothyroidism E03.9 Hypothyroidism type: acquired Primary hypertension I10 Hypertension type: primary hypertension Hypercholesterolemia E78.00 Age-related osteoporosis without current pathological fracture M81.0 Osteoporosis type: age-related Presence of current pathological fracture: without current pathological fracture Assessment & Plan Assessment & Plan (1) PAF (paroxysmal atrial fibrillation): Code(s): I48.0 - Paroxysmal atrial fibrillation Category: Medical Plan: Continue with Xarelto 15 mg once a day, flecainide 50 mg twice a day. (2) Pacemaker: Code(s): Z95.0 - Presence of cardiac pacemaker Category: Medical Plan: Patient continues to follow-up with cardiology (3) Hypothyroid: Code(s): E03.9 - Hypothyroidism, unspecified Category: Medical Qualifiers: Hypothyroidism type: acquired Qualified Code(s): E03.9 - Hypothyroidism, unspecified Plan: Continue with thyroid medication but will have to retest blood test. (4) Hypertension: Code(s): I10 - Essential (primary) hypertension Category: Medical Qualifiers: Hypertension type: primary hypertension Qualified Code(s): I10 - Essential (primary) hypertension Plan: Continue with blood pressure medication. Decrease salt intake and exercise patient takes amlodipine 5 mg once a day and atenolol 100 mg once a day (5) Hypercholesterolemia: Code(s): E78.00 - Pure hypercholesterolemia, unspecified Category: Medical Plan: Avoid fried foods, chicken skin, eggs, butter margarine, pastries and meat. Be it pork or beef they have a lot of cholesterol LDL goal of less than 130 and triglyceride of less than 150. On rosuvastatin 10 mg once a day (6) Osteoporosis: Comment: Prolia February 2023 Code(s): M81.0 - Age-related osteoporosis without current pathological fracture Category: Medical Qualifiers: Osteoporosis type: age-related Presence of current pathological fracture: without current pathological fracture Qualified Code(s): M81.0 - Age-related osteoporosis without current pathological fracture Plan: Patient is up-to-date with bone density and presently on Prolia Orders: Orders Complete Blood Count Auto Diff Today E78.00 - Pure hypercholesterolemia, unspecified Comprehensive Met. Panel Today E78.00 - Pure hypercholesterolemia, unspecified Vitamin B12 and Folate Today E78.00 - Pure hypercholesterolemia, unspecified B Type Natriuretic Peptide Today E78.00 - Pure hypercholesterolemia, unspecified AMB Denosumab Injection Patient Supplied Today M81.0 - Age-related osteoporosis without current pathological fracture Comprehensive Met. Panel 3 Months E78.00 - Pure hypercholesterolemia, unspecified Lipid Panel 3 Months E78.00 - Pure hypercholesterolemia, unspecified B Type Natriuretic Peptide 3 Months E78.00 - Pure hypercholesterolemia, unspecified Free T4 (Free Thyroxine) Today E78.00 - Pure hypercholesterolemia, unspecified Vitamin D 25-OH Total Today E78.00 - Pure hypercholesterolemia, unspecified Magnesium Today E78.00 - Pure hypercholesterolemia, unspecified Hemoglobin A1c 3 Months E78.00 - Pure hypercholesterolemia, unspecified Medications: Refilled furosemide 20 mg PO DAILY 90 tabs 3RF 90 days E78.00 - Pure hypercholesterolemia, unspecified
[2024-03-14 09:29] VITALS: BP 100/68; PULSE 57; O2SAT 98; BMI 21.6
== END 2024-03-14 10:18 | disposition home or self-care (01) ==
PROVIDERS: PCP Internal Medicine; Visit Provider Internal Medicine
DX: I48.0 Paroxysmal atrial fibrillation (principal); Z95.0 Presence of cardiac pacemaker; E03.9 Hypothyroidism, unspecified; I10 Essential (primary) hypertension; E78.00 Pure hypercholesterolemia, unspecified; M81.0 Age-related osteoporosis without current pathological fracture

== ENCOUNTER → 2024-03-14 09:25 | Outpatient (BNVA) | payer MEDICARE, SELFPAY | PROVIDERS: PCP Internal Medicine; Visit Provider Internal Medicine | DX: I48.0 Paroxysmal atrial fibrillation (principal); E03.9 Hypothyroidism, unspecified; I10 Essential (primary) hypertension; E78.00 Pure hypercholesterolemia, unspecified; M81.0 Age-related osteoporosis without current pathological fracture; Z79.01 Long term (current) use of anticoagulants; Z79.899 Other long term (current) drug therapy; Z95.0 Presence of cardiac pacemaker | CPT/HCPCS: 96372; 99212; J0897 ==

== ENCOUNTER → 2024-03-30 23:59 | Outpatient (BNV) | payer MEDICARE, SELFPAY ==
--- NOTE | 2024-05-09 20:51 | A.OFFVIS_ITS ---
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- [employer] Allergies No Known Allergies [No Known Allergies*] Allergy (Verified 03/14/24 09:29) [facility] Medical History (Updated 03/14/24 @ 18:09 by Thong Matthews MD) History of shingles History of atrial fibrillation Hx of tachycardia-bradycardia syndrome Pacemaker Hypothyroid Humerus shaft fracture Dizziness Decreased hearing of both ears Breast cancer screening Osteoporosis screening Colon cancer screening Encounter for annual wellness exam in Medicare patient Dyspnea on exertion Restrictive lung disease Abnormal PFTs (pulmonary function tests) Fatty liver Hypercholesterolemia Chronic kidney disease T12 compression fracture Surgical History History of open reduction and internal fixation (ORIF) procedure History of lumpectomy of right breast Hx of colonoscopy History of permanent cardiac pacemaker placement History of back surgery Family History Father No problems noted. Mother No problems noted. Brother Prostate cancer Sister No problems noted. Son No problems noted. Daughter No problems noted. Family/Other Mental health disorder Substance use disorder Social History Housing: House Alcohol intake: current Alcohol intake frequency: a few times a week Patient Tobacco Use Status: Former Tobacco user Tobacco use type: Cigarette Years Smoked: 19 +/- e-Cigarette/Vaping Use: Never Used Second Hand Smoke Exposure: No service: No Current occupational status: retired Current occupation: right handed Current occupational exposures/hazards: No Cognitive needs: No Hearing needs: No Vision needs: Yes (Glasses) Office Procedures Cardiac Device Check Cardiac Device Check Details: PPM Battery 40% No new alerts. [id number]-OQ Cardiac Device Check, pacemaker dual lead Procedure code (CPT) selection complete Assessment & Plan Assessment & Plan (1) Pacemaker: Code(s): Z95.0 - Presence of cardiac pacemaker Category: Medical Plan: Coding Level of Care Code Procedure Only Diagnoses Pacemaker Z95.0 CPT Codes Cardiac Device Check - Cardiac Device 2: 24957-SF Cardiac Device Check, pacemaker dual lead ([id number])
== END ==
PROVIDERS: PCP Internal Medicine; Visit Provider Internal Medicine Cardiovascular Disease
DX: Z45.018 Encounter for adjustment and management of other part of cardiac pacemaker (principal)
CPT/HCPCS: 93297

== ENCOUNTER → 2024-04-24 23:59 | Outpatient (BNV) | payer MEDICARE, SELFPAY ==
--- NOTE | 2024-05-09 20:56 | A.OFFVIS_ITS ---
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- [employer] Allergies No Known Allergies [No Known Allergies*] Allergy (Verified 03/14/24 09:29) [facility] Medical History (Updated 03/14/24 @ 18:09 by Thong Matthews MD) History of shingles History of atrial fibrillation Hx of tachycardia-bradycardia syndrome Pacemaker Hypothyroid Humerus shaft fracture Dizziness Decreased hearing of both ears Breast cancer screening Osteoporosis screening Colon cancer screening Encounter for annual wellness exam in Medicare patient Dyspnea on exertion Restrictive lung disease Abnormal PFTs (pulmonary function tests) Fatty liver Hypercholesterolemia Chronic kidney disease T12 compression fracture Surgical History History of open reduction and internal fixation (ORIF) procedure History of lumpectomy of right breast Hx of colonoscopy History of permanent cardiac pacemaker placement History of back surgery Family History Father No problems noted. Mother No problems noted. Brother Prostate cancer Sister No problems noted. Son No problems noted. Daughter No problems noted. Family/Other Mental health disorder Substance use disorder Social History Housing: House Alcohol intake: current Alcohol intake frequency: a few times a week Patient Tobacco Use Status: Former Tobacco user Tobacco use type: Cigarette Years Smoked: 19 +/- e-Cigarette/Vaping Use: Never Used Second Hand Smoke Exposure: No service: No Current occupational status: retired Current occupation: right handed Current occupational exposures/hazards: No Cognitive needs: No Hearing needs: No Vision needs: Yes (Glasses) Office Procedures Cardiac Device Check Cardiac Device Check Details: PPM Good battery No new alerts. 16464-IB Cardiac Device Check, pacemaker dual lead Procedure code (CPT) selection complete Assessment & Plan Assessment & Plan (1) Pacemaker: Code(s): Z95.0 - Presence of cardiac pacemaker Category: Medical Plan: Coding Level of Care Code Procedure Only Diagnoses Pacemaker Z95.0 CPT Codes Cardiac Device Check - Cardiac Device 2: 67504-WC Cardiac Device Check, pacemaker dual lead ([id number])
== END ==
PROVIDERS: PCP Internal Medicine; Visit Provider Internal Medicine Cardiovascular Disease
DX: Z45.018 Encounter for adjustment and management of other part of cardiac pacemaker (principal)
CPT/HCPCS: 93294

== ENCOUNTER → 2024-05-31 23:59 | Outpatient (BNV) | payer MEDICARE, SELFPAY ==
--- NOTE | 2024-06-11 17:43 | A.OFFVIS_ITS ---
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- [employer] Allergies No Known Allergies [No Known Allergies*] Allergy (Verified 03/14/24 09:29) [facility] Medical History (Updated 03/14/24 @ 18:09 by Thong Matthews MD) History of shingles History of atrial fibrillation Hx of tachycardia-bradycardia syndrome Pacemaker Hypothyroid Humerus shaft fracture Dizziness Decreased hearing of both ears Breast cancer screening Osteoporosis screening Colon cancer screening Encounter for annual wellness exam in Medicare patient Dyspnea on exertion Restrictive lung disease Abnormal PFTs (pulmonary function tests) Fatty liver Hypercholesterolemia Chronic kidney disease T12 compression fracture Surgical History History of open reduction and internal fixation (ORIF) procedure History of lumpectomy of right breast Hx of colonoscopy History of permanent cardiac pacemaker placement History of back surgery Family History Father No problems noted. Mother No problems noted. Brother Prostate cancer Sister No problems noted. Son No problems noted. Daughter No problems noted. Family/Other Mental health disorder Substance use disorder Social History Housing: House Alcohol intake: current Alcohol intake frequency: a few times a week Patient Tobacco Use Status: Former Tobacco user Tobacco use type: Cigarette Years Smoked: 19 +/- e-Cigarette/Vaping Use: Never Used Second Hand Smoke Exposure: No service: No Current occupational status: retired Current occupation: right handed Current occupational exposures/hazards: No Cognitive needs: No Hearing needs: No Vision needs: Yes (Glasses) Office Procedures Cardiac Device Check Cardiac Device Check Details: Dual chamber PPM Good battery No new alerts [id number] Cardiac Device Check, pacemaker dual lead Procedure code (CPT) selection complete Assessment & Plan Assessment & Plan (1) Pacemaker: Code(s): Z95.0 - Presence of cardiac pacemaker Category: Medical Plan Coding Level of Care Code Procedure Only Diagnoses Pacemaker Z95.0 CPT Codes Cardiac Device Check - Cardiac Device 2: 74692-ZD Cardiac Device Check, pac emaker dual lead ([id number])
== END ==
PROVIDERS: PCP Internal Medicine; Visit Provider Internal Medicine Cardiovascular Disease
DX: Z45.018 Encounter for adjustment and management of other part of cardiac pacemaker (principal)
CPT/HCPCS: 93297

== ENCOUNTER → 2024-06-23 23:59 | Outpatient (BNV) | payer MEDICARE, SELFPAY ==
--- NOTE | 2024-06-27 14:01 | MHC.OFFVIS ---
Intake Visit Reasons: Remote device check- [employer] Allergies No Known Allergies [No Known Allergies*] Allergy (Verified 03/14/24 09:29) [facility] Medical History (Updated 03/14/24 @ 18:09 by Thong Matthews MD) History of shingles History of atrial fibrillation Hx of tachycardia-bradycardia syndrome Pacemaker Hypothyroid Humerus shaft fracture Dizziness Decreased hearing of both ears Breast cancer screening Osteoporosis screening Colon cancer screening Encounter for annual wellness exam in Medicare patient Dyspnea on exertion Restrictive lung disease Abnormal PFTs (pulmonary function tests) Fatty liver Hypercholesterolemia Chronic kidney disease T12 compression fracture Surgical History History of open reduction and internal fixation (ORIF) procedure History of lumpectomy of right breast Hx of colonoscopy History of permanent cardiac pacemaker placement History of back surgery Family History Father No problems noted. Mother No problems noted. Brother Prostate cancer Sister No problems noted. Son No problems noted. Daughter No problems noted. Family/Other Mental health disorder Substance use disorder Social History Housing: House Alcohol intake: current Alcohol intake frequency: a few times a week Patient Tobacco Use Status: Former Tobacco user Tobacco use type: Cigarette Years Smoked: 19 +/- e-Cigarette/Vaping Use: Never Used Second Hand Smoke Exposure: No service: No Current occupational status: retired Current occupation: right handed Current occupational exposures/hazards: No Cognitive needs: No Hearing needs: No Vision needs: Yes (Glasses) Office Procedures Cardiac Device Check Cardiac Device Check Details: Biotronik dual-chamber pacemaker. Battery life 40%. RV paced 6%. A paced 29%. No new alerts. 98876-LB Cardiac Device Check, pacemaker dual lead Procedure code (CPT) selection complete Assessment & Plan Assessment & Plan (1) Pacemaker: Code(s): Z95.0 - Presence of cardiac pacemaker Category: Medical Plan Orders: Orders AMB Cardiac Device Follow-up 06/23/24 Z95.0 - Presence of cardiac pacemaker Coding Level of Care Code Procedure Only Diagnoses Pacemaker Z95.0 CPT Codes Cardiac Device Check - Cardiac Device 2: 72615-FH Cardiac Device Check, pacemaker dual lead ([id number])
== END ==
PROVIDERS: PCP Internal Medicine; Visit Provider Internal Medicine Cardiovascular Disease
DX: Z45.018 Encounter for adjustment and management of other part of cardiac pacemaker (principal)
CPT/HCPCS: 93294

== ENCOUNTER → 2024-06-28 11:15 | Outpatient (BNV) | payer MEDICARE, SELFPAY | PROVIDERS: PCP Internal Medicine; Visit Provider Internal Medicine | DX: Z12.31 Encounter for screening mammogram for malignant neoplasm of breast (principal) | CPT/HCPCS: 77063; 77067 ==

== ENCOUNTER 2024-07-03 09:30 | Outpatient (AMB) | payer MEDICARE, SELFPAY ==
[2024-07-03 09:37] VITALS: BP 110/60; PULSE 55; BMI 21.5
--- NOTE | 2024-07-03 09:37 | MHC.OFFVIS ---
Vital Signs 07/03/24 09:37 Height 4 ft 9.5 in Weight 100 lb 15.547 oz BMI 21.5 BP 110/60 Blood Pressure Location Lt brachial Position Sitting Pulse 55 Pulse Source Monitor Intake Visit Reasons: 6 mth f/up Intake Note: 6 mth f/up T[place] Mucker Required: No Accompanied by: Self / Same As Patient Allergies No Known Allergies [No Known Allergies*] Allergy (Verified 03/14/24 09:29) Medication List - Last Reconciled 07/03/24 by Levon Santiago MD amlodipine 5 mg PO DAILY 90 days atenolol 100 mg PO .once daily cholecalciferol (vitamin D3) 25 mcg PO DAILY cyanocobalamin (vitamin B-12) mcg PO DAILY denosumab (Prolia) 60 mg subcut [id number] flecainide 50 mg orally Take 2 tablets in morning, one tablet in evening furosemide 20 mg PO DAILY 90 days levothyroxine 75 mcg PO DAILY multivitamin 1 tab PO DAILY rivaroxaban 20 mg PO DAILY 90 days rosuvastatin 10 mg PO BEDTIME HPI Comments Details: 78-year-old female here for follow-up. She was previously seeing Dr. Ortiz. She has background history of permanent pacemaker placement. I reviewed her Holter monitor from 2015 which showed paroxysmal atrial fibrillation and pauses in excess of 4 seconds. She does not remember much of her history. We do not have records available. She said she was told by Dr. Ortiz that she needs the pacemaker and had pacemaker placement. She also was on amiodarone 200 mg once a day. She was on Xarelto for AFib. No bleeding issues. She denies chest pain or shortness of breath. She was referred for blood workup because she was on amiodarone. Her liver function test was abnormal. Looking back her test has been abnormal. She said she has seen gastroenterology in the past and was told that she has fatty liver disease. She is denying any symptoms as before. No bleeding issues. After discussion she was taken off the amiodarone. Today she returns for follow-up. She has been walking her dog 3 times a day. She has no dyspnea or chest discomfort. No palpitations during the day but at nighttime she occasionally feels palpitations. She is saying she is not bothered by them. She is taking Xarelto regularly without any bleeding concerns. Overall she feels great. Blood pressure control is good. EKG showing sinus rhythm. 05/10/2023: She returns for follow-up. She has been doing well. Occasionally feels palpitations. Her pacemaker interrogation in the past has shown episodes of atrial fibrillation which were self-limiting. She was previously on amiodarone but due to elevated liver enzymes the amiodarone was stopped. We decided to start her on Multaq but there is interaction with Xarelto and I felt that stopping Xarelto is not the best thing to do currently. After discussion we have decided to start her flecainide 50 mg twice a day. 09/20/23: She returns for follow up. She recently had a viral illness with runny nose and body aches and has recovered from that. She said she was short of breath doing that but has no symptoms now. In particular no chest discomfort shortness of breath. She has been on flecainide for atrial fibrillation. Interestingly her ECG today is showing T-wave inversions which are new in the inferior and anterolateral leads. She has no symptoms. In particular no CP or SOB. She had a viral illness 2 weeks ago and is saying she has recovered from that. 01/03/24: She is here for follow-up. She has no symptoms. Exercising/walking daily without any complaints. On last visit she had T-wave inversions. She had a exercise stress echo where she was able to exercise to 4.6 metabolic equivalents without any significant ECG changes or wall motion abnormality on stress echocardiography. Echocardiography also showed normal biventricular function. She was not complaining of any symptoms at that time other than recent viral illness. Today ECG appears normal. Unsure what was the cause but sometimes we see T-wave inversions after cardiac pacing and she has a pacemaker so it is possible that these were memory T-waves. 07/03/2024: Luzma is here for follow-up. She has been doing well. No chest pain or shortness of breath. Occasional palpitations lasting for few seconds. Overall doing well with the atenolol and flecainide combination. On anticoagulation with rivaroxaban. [facility] Medical History (Updated 03/14/24 @ 18:09 by Thong Matthews MD) History of shingles History of atrial fibrillation Hx of tachycardia-bradycardia syndrome Pacemaker Hypothyroid Humerus shaft fracture Dizziness Decreased hearing of both ears Breast cancer screening Osteoporosis screening Colon cancer screening Encounter for annual wellness exam in Medicare patient Dyspnea on exertion Restrictive lung disease Abnormal PFTs (pulmonary function tests) Fatty liver Hypercholesterolemia Chronic kidney disease T12 compression fracture Surgical History History of open reduction and internal fixation (ORIF) procedure History of lumpectomy of right breast Hx of colonoscopy History of permanent cardiac pacemaker placement History of back surgery Family History Father No problems noted. Mother No problems noted. Brother Prostate cancer Sister No problems noted. Son No problems noted. Daughter No problems noted. Family/Other Mental health disorder Substance use disorder Social History Housing: House Alcohol intake: current Alcohol intake frequency: a few times a week Patient Tobacco Use Status: Former Tobacco user Tobacco use type: Cigarette Years Smoked: 18 +/- e-Cigarette/Vaping Use: Never Used Second Hand Smoke Exposure: No service: No Current occupational status: retired Current occupation: right handed Current occupational exposures/hazards: No Cognitive needs: No Hearing needs: No Vision needs: Yes (Glasses) Review of Systems Const Denies chills, Denies fatigue, Denies fever(s), Denies frequent falls, Denies weakness, Denies weight gain and Denies weight loss ENT Denies dizziness Card Denies chest pain, Denies leg edema, Denies lightheadedness, Denies palpitations, Denies dyspnea and Denies dyspnea on exertion Resp Denies cough, Denies dyspnea and Denies dyspnea on exertion GI Denies hematochezia Musc Denies abnormal gait, Denies muscle weakness, Denies numbness, Denies radiating pain into limb and Denies tingling Neuro Denies abnormal gait, Denies dizziness, Denies frequent falls, Denies numbness, Denies tingling and Denies weakness Endo Denies fatigue and Denies palpitations Physical Exam Vital Signs: Last Vital Signs Pulse 55 07/03/24 09:37 BP 110/60 07/03/24 09:37 BMI result Body Mass Index 21.5 GENERAL APPEARANCE: in no acute distress. NECK/THYROID: no carotid bruit, no jugular venous distention. SKIN: no suspicious lesions, warm and dry. HEART: no murmurs, regular rate and rhythm, S1, S2 normal. LUNGS: clear to auscultation bilaterally. ABDOMEN: normal, bowel sounds present, soft, nontender, nondistended. EXTREMITIES: no clubbing, cyanosis, or edema. PERIPHERAL PULSES: equal. NEUROLOGIC: nonfocal, alert and oriented. PSYCH: mood/affect full range. Office Procedures EKG Details: Atrial paced rhythm with prolonged AV conduction 55 beats per minute. NV interval 248 milliseconds, QTC 490 milliseconds, nonspecific T-wave changes. [id number], Complete Assessment & Plan Assessment & Plan (1) PAF (paroxysmal atrial fibrillation): Code(s): I48.0 - Paroxysmal atrial fibrillation Category: Medical Plan 79-year-old female who is here for follow-up. She has background history of paroxysmal atrial fibrillation and previous permanent pacemaker placement. Occasionally gets palpitations lasting for few seconds. No prolonged episodes. She is on flecainide and atenolol. On anticoagulation with rivaroxaban. Doing quite well at this point. We will follow-up with us in 6 months. Thank you for allowing me to participate in the care of your patient. Please feel free to contact me if you have any questions. Coding Level of Care Code Est Pt Level 3 (75841) Diagnoses PAF (paroxysmal atrial fibrillation) I48.0 CPT Codes EKG - CPT: 61445-[id number], Complete ([id number])
== END 2024-07-03 10:23 | disposition home or self-care (01) ==
PROVIDERS: PCP Internal Medicine; Visit Provider Internal Medicine Cardiovascular Disease
DX: I48.0 Paroxysmal atrial fibrillation (principal)
CPT/HCPCS: 93010; 99213

== ENCOUNTER → 2024-07-03 09:30 | Outpatient (BNVA) | payer MEDICARE, SELFPAY | PROVIDERS: PCP Internal Medicine; Visit Provider Internal Medicine Cardiovascular Disease ==

== ENCOUNTER 2024-07-03 10:15 | Outpatient (REF) | payer MEDICARE, SELFPAY ==
[2024-07-03 10:38] LABS: MANUAL DIFF FLAG NO
[2024-07-03 10:44] LABS: Basophils Percent Auto 0.5 % (0-2); Eosinophils Absolute Auto 0.1 X10*3/uL (0.0-0.4); Eosinophils Percent Auto 1.5 % (0-4); Hematocrit 44.4 % (37.0-47.0); Hemoglobin 14.9 g/dl (12.0-16.0); Imm Gran Abs Auto 0.04 X10*3/uL (0.00-0.03); Imm Gran Pct Auto 0.5 % (0.0-0.4); Lymphocytes Absolute Auto 1.3 X10*3/uL (1.2-4.9); Lymphocytes Percent Auto 15.9 % (20-40); Mean Corpuscular HGB Conc 33.6 g/dl (31.0-35.0); Mean Corpuscular Hemoglobin 33.6 pg (27.0-33.0); Mean Corpuscular Volume 100.2 fL (80.0-98.0); Mean Platelet Volume 10.1 fL (9.4-12.3); Monocytes Absolute Auto 0.6 X10*3/uL (0.1-1.2); Monocytes Percent Auto 7.7 % (2-11); Neutrophils Percent Auto 73.9 % (45-73); Platelet Count 221 X10*3/uL (160-400); Red Blood Count 4.43 X10*6/uL (4.20-5.50); Red Cell Distribution Width 12.6 % (11.0-16.0); White Blood Count 8.1 X10*3/uL (4.8-10.8)
[2024-07-03 10:52] LABS: Estimated Average Glucose 105 mg/dL; Hemoglobin A1C 131.0065 umol/L; Hemoglobin A1c % 5.3 % (<6.0); Total Hemoglobin (HGBA1C) 3864.1093 umol/L
[2024-07-03 11:14] LABS: B Type Natriuretic Peptide 251 pg/mL (<100)
[2024-07-03 11:21] LABS: Alanine Aminotransferase 32 U/L (0-31); Albumin Level 4.2 g/dL (3.5-5.0); Alkaline Phosphatase 69 U/L (39-117); Anion Gap 12 (12-20); Aspartate Amino Transferase 38 U/L (5-31); Bilirubin Total 1.1 mg/dL (0.0-1.0); Blood Urea Nitrogen 14 mg/dL (9-16); Calcium 9.3 mg/dL (8.4-10.2); Carbon Dioxide 27 mmol/L (22-29); Chloride 110 mmol/L (96-108); Cholesterol 170 mg/dL (<200); Estimated Glomerular Filt Rate > 60; Glucose Random 100 mg/dL (60-115); HDL Cholesterol 86 mg/dL (>40); LDL Cholesterol Calculated 71 mg/dL (<100); Potassium 4.7 mmol/L (3.3-5.1); Sodium 144 mmol/L (135-145); Triglycerides 69 mg/dL (<150)
[2024-07-03 11:37] LABS: Free T4 (Free Thyroxine) 1.29 ng/dL (0.71-1.85); Thyroid Stimulating Hormone 0.48 uIU/mL (0.32-4.0); Vitamin D 25-OH Total 86.7 ng/mL (>30)
[2024-07-03 11:46] LABS: Folate 16.7 ng/mL (> or = 4.0); Vitamin B12 1244 pg/mL (200-900)
== END 2024-07-03 10:16 | disposition home or self-care (01) ==
LOC: HO.LAB 10:15
PROVIDERS: PCP Internal Medicine; Visit Provider Internal Medicine
DX: E03.9 Hypothyroidism, unspecified (principal); E78.00 Pure hypercholesterolemia, unspecified; I48.0 Paroxysmal atrial fibrillation; Z13.1 Encounter for screening for diabetes mellitus
CPT/HCPCS: 36415; 80053; 80061; 82306; 82607; 82746; 83036; 83735; 83880; 84439; 84443; 85025; 93005; 99212

== ENCOUNTER 2024-07-10 09:10 | Outpatient (AMB) | payer MEDICARE, SELFPAY ==
--- OUTSIDE RECORDS SUMMARY | 2024-07-10 09:13 | XMS_ITS | Patient Health Record ---
Author Organization [facility] Address [address] [place] [address] Care Team Providers Care Training Officer Name Role Phone Thong Matthews MD Primary Care Provider Petr Adan Jr Unavailable [phone] ALLERGIES No Known Allergies REASON FOR REFERRAL No Information MEDICATIONS Medication SIG (Take, Route, Frequency, Duration) Notes Start Date End Date Status Xarelto 15 MG 1 tablet with food Orally Once a day for 30 day(s) Active MiraLax (colon prep) 17 GM/SCOOP mixed with Gatorade or Crystal Light Orally begin at 5:00 p.m. the day before the procedure for 1 day 05/15/2021 Active Vitamin C 500 MG 1 tablet Orally Once a day Active Levothyroxine Sodium 75 MCG 1 tablet on an empty stomach in the morning Orally Once a day Active amLODIPine Besylate 10 MG 1 tablet Orall y Once a day Active Multivitamins - as directed Orally QD Active Atenolol 100 MG 1 tablet Orally Once a day Active Rosuvastatin Calcium 10 MG Oral for 90 Active Vitamin B12 1000 MCG 1 tablet Orally Onc e a day Active Furosemide 20 MG 1 tablet Orally Once a day Active IMMUNIZATIONS Vaccine Route Administration Date Status Comme nts Influenza Unknown 04/12/2018 Administered Influenza Unknown 02/21/2021 Administered SOCIAL HISTORY Sex Assigned At : Social History Observation Description Sex Assigned At Unknown Alcohol Screen Question Answer Notes Did you have a drink contain ing alcohol in the past year? Yes How often did you have a dri nk containing alcohol in the past year? 4 or more times a week (4 points) How many drinks did you have on a typical day when you were drinking in the past year? 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) 02/10/2012 Future Test Test Name Order Date COLONOSCOPY 05/15/2021 Insurance Providers Payer Name Payer Address Payer Phone Subscriber Number Group Number Insured Name Patient Relationship to Insured Coverage Start Date Coverage End Date MEDICARE OF [place] [address] [place] [address] [phone] [id number] SANTI ESTEFANI Self - patient is the insured [employer] CLAIMS [address] [place] [address] [id number] VINNYROYCE ESTEFANI Self - patient is the insured MEDICAL (GENERAL) HISTORY Medical History History ICD Code Elevated LFT's Hypertension Elevated cholesterol Osteoporosis pacemaker (tachybradycardia syndrome) atrial fibrillation Surgical History Surgery Date(Month/Year) Benign breast tumor cardiac pacemaker back surgery wrist
--- OUTSIDE RECORDS SUMMARY | 2024-07-10 09:13 | XMS_ITS | Patient Health Record ---
Author Organization [facility] Address [address] [place] [address] Care Team Providers Care Metal Organ Pipe Maker Name Role Phone Kennedi Hayden Unavailable [phone] Reason For Referral No Information Medications Medication SIG (Take, Route, Frequency, Duration) Notes Start Date End Date Status Caltrate 600+D [id number] ORAL for - [facility] 03/21/2014 Active Furosemide 20MG ORAL for - [facility] 03/21/2014 A ctive Multivitamins 1 ORAL daily for -[address] [place] [address] 12/21/2011 Active Spironolactone 50MG ORAL for - [facility] 03/21/2014 Active Lisinopril 10MG ORAL for - [facility] 03/21/2014 A ctive Multi-Vitamins ORAL for - [facility] 03/21/2014 Ac tive Atenolol 100MG 1 ORAL DAILY for -3 [facility] 12/21/2011 Active atorvastatin 20MG 1 ORAL daily for -[address] [place] [address] 01/09/2013 Active amLODIPine Besylate 10MG ORAL for -3 [facility] 03/21/2014 Active Aspirin EC 81MG 1 ORAL daily for -[address] [place] [address] 12/21/2011 Active Problems Problem Type SNOMED Code ICD Code Onset Dates Problem Status W/U Status Risk Notes Problem Benign essential hypertension (0847829) Essential hypertension, benign (401.1) Active confirmed Major Problem Menopausal symptom (73158171) Symptomatic menopausal or female climacteric states (627.2) Active confirmed Major Problem Postmenopausal atrophic vaginitis (29825572) Postmenopausal atrophic vaginitis (627.3) Active confirmed Diag Problem Osteoporosis (34002380) Unspecified osteoporosis (733.00) Active confirmed Diag Problem Gynecological examination normal (240056767975695) Routine gynecological examination (V72.31) Active confirmed Major Problem Screening for malignant neoplasm of colon (887556808) Special screening for malignant neoplasms, colon (V76.51) Active confirmed Major Plan Of Treatment No Information Insurance Providers Payer Name Payer Address Payer Phone Subscriber Number Group Number Insured Name Patient Relationship to Insured Coverage Start Date Coverage End Date [facility] [address] [place] [address] [phone] [id number] ESTEFANI HANCOCK Self - patient is the insured
--- NOTE | 2024-07-10 09:19 | MHC.PC.OV ---
Vital Signs 07/10/24 09:20 Height 4 ft 9.5 in Weight 100 lb BMI 21.3 BP 120/72 Blood Pressure Location Lt brachial Position Sitting Pulse 69 Pulse Source Pulse Oximeter Pulse Oximetry (%) 98 Oxygen Delivery Method Room Air Intake Visit Reasons: cholesterol Allergies No Known Allergies [No Known Allergies*] Allergy (Verified 07/10/24 09:20) Tobacco use date assessed: 07/10/24 Fall risk assessment: No Falls in past year Last assessed Fall Risk: 07/10/24 Dental Screening Dental Screen Date: 07/10/24 Did you have a dental visit in the last 12 months?: Yes Did you have a dental problem in the last 6 months where you did not have access to dental care?: No Was dental information given to patient?: Patient has dentist HPI cholesterol HPI Details The patient is a 79-year-old female presenting with a follow-up for multiple chronic conditions. She has a history of hypercholesterolemia, chronic kidney disease, essential hypertension, hypothyroidism, and atrial fibrillation managed with a pacemaker. She was last seen in February, with her next mammogram scheduled for June 2024 and her last bone density assessment done in September 2023. Her recent cardiology consult noted she is on flecainide and atenolol, with anticoagulation managed by rivaroxaban. Recent laboratory assessments conducted on July 03 showed macrocytosis but no anemia, with stable platelet and white blood cell counts. Her renal function and electrolyte levels are within normal limits, although her blood sugar was mildly elevated at 100 mg/dL. A hemoglobin A1c test indicated normal glycemic control. BNP levels measured were 251, slightly elevated above the normal threshold of 200, and her LDL cholesterol was measured at 71. Her thyroid function, vitamin B12, D, and folic acid levels are within the normal range. The patient acknowledges taking B12 as an aztd-omo-kprnvxh supplement and was advised to take it every other day due to elevated levels. [facility] Medical History (Updated 03/14/24 @ 18:09 by Thong Matthews MD) History of shingles History of atrial fibrillation Hx of tachycardia-bradycardia syndrome Pacemaker Hypothyroid Humerus shaft fracture Dizziness Decreased hearing of both ears Breast cancer screening Osteoporosis screening Colon cancer screening Encounter for annual wellness exam in Medicare patient Dyspnea on exertion Restrictive lung disease Abnormal PFTs (pulmonary function tests) Fatty liver Hypercholesterolemia Chronic kidney disease T12 compression fracture Surgical History History of open reduction and internal fixation (ORIF) procedure History of lumpectomy of right breast Hx of colonoscopy History of permanent cardiac pacemaker placement History of back surgery Family History Father No problems noted. Mother No problems noted. Brother Prostate cancer Sister No problems noted. Son No problems noted. Daughter No problems noted. Family/Other Mental health disorder Substance use disorder Social History Housing: House Alcohol intake: current Alcohol intake frequency: a few times a week Patient Tobacco Use Status: Former Tobacco user Tobacco use type: Cigarette Years Smoked: 18 +/- e-Cigarette/Vaping Use: Never Used Second Hand Smoke Exposure: No service: No Current occupational status: retired Current occupation: right handed Current occupational exposures/hazards: No Cognitive needs: No Hearing needs: No Vision needs: Yes (Glasses) Questionnaire PHQ-9 Over the last 2 weeks, how often have you been bothered by any of the following problems? 1. Little interest or pleasure in doing things: not at all 2. Feeling down, depressed, or hopeless: not at all 3. Trouble falling or staying asleep, or sleeping too much: not at all 4. Feeling tired or having little energy: not at all 5. Poor appetite or overeating: not at all 6. Feeling bad about yourself - or that you are a failure or have let yourself or your family down: not at all 7. Trouble concentrating on things, such as reading the newspaper or watching television: not at all 8. Moving or speaking so slowly that other people could have noticed. Or the opposite - being so fidgety or restless that you have been moving around a lot more than usual: not at all 9. Thoughts that you would be better off or of hurting yourself in some way: not at all Total score: 0 Depression Screening Interpretation: Negative Depression Screening Done: Yes 52276 - PHQ-9 Billing: Yes Source: Developed by Drs. Kameron Joyner, Miladis Gauthier, Oj Casillas and colleagues, with an educational gabriella from [employer]. Thrive Questionnaire Date Thrive assessed: 07/10/24 I am a: Patient What is your living situation today?: I have a steady place to live Within the past 12 months, did the food you bought not last and you didn't have the money to get more?: Never true Within the past 12 months, did you worry whether your food would run out before you got money to buy more?: Never true Do you have trouble paying for medicines?: No Do you have trouble getting transportation to medical appointments?: No Do you have trouble paying your heating and electricity bill?: No Do you have trouble taking care of your child, family member or friend?: No Do you have trouble with day-to-day activities such as bathing, preparing meals, shopping, managing finances, etc.?: No Are you currently unemployed and looking for a job?: No Are you interested in more education?: No Currently or been in a relationship where the following occur: No concerns reported THRIVE Score: 0 AUDIT C Alcohol Use Questionnaire (AUDIT-C) 2. How many drinks containing alcohol do you have on a typical day when you are drinking?: 1 or 2 3. How often do you have six or more drinks on one occasion?: Never Total Score: 0 KYLAH-7 AMB Questionnaire KYLAH-7 Date KYLAH - 7 assessed: 07/10/24 Feeling nervous, anxious, or on edge: 0 = Not at all Not being able to stop or control worryin = Not at all Worrying too much about different things: 0 = Not at all Trouble relaxin = Not at all Being so restless that it is hard to sit still: 0 = Not at all Becoming easily annoyed or irritable: 0 = Not at all Feeling afraid as if something awful might happen: 0 = Not at all Total KYLAH-7 score (0-4 normal; 5-9 mild; 10-14 moderate; 15-21 severe): 0 Source: Developed by Drs. Kameron Joyner, Miladis Gauthier, Oj Casillas and colleagues, with an educational gabriella from [employer]. Physical exam (Primary Care) Vital Signs: Last Vital Signs Pulse 69 07/10/24 09:20 BP 120/72 07/10/24 09:20 Pulse Ox 98 07/10/24 09:20 Oxygen Delivery Method Room Air 07/10/24 09:20 BMI result Body Mass Index 21.3 Tobacco/Smoking Status: Tobacco use Status Tobacco use date assessed 07/10/24 07/10/24 09:25 Patient Tobacco Use Status Former Tobacco user 07/10/24 09:25 Tobacco use type Cigarette 07/10/24 09:25 e-Cigarette/Vaping Use Never Used 07/10/24 09:25 PHQ-9: PHQ-9 Score PHQ-9: Total score 0 07/10/24 09:25 Depression Screening Interpretation: Negative Thrive Assessment: Date of Thrive Assessment Date Thrive assessed 07/10/24 07/10/24 09:25 Currently or been in a relationship where the following occur: No concerns reported Const General: alert; No acute distress Eyes Conjunctivae: conjunctivae normal Resp Auscultation: clear to auscultation bilaterally Cardio Rate: regular rate Rhythm: regular rhythm GI Inspection: Yes normal to inspection Extrem General: Yes normal to inspection and No edema Coding Level of Care Code Est Pt Level 4 (94332) Complex EM visit Add On G2211 Diagnoses PAF (paroxysmal atrial fibrillation) I48.0 Pacemaker Z95.0 Acquired hypothyroidism E03.9 Hypothyroidism type: acquired Primary hypertension I10 Hypertension type: primary hypertension Hypercholesterolemia E78.00 Additional Codes PHQ-9 - 47844 - PHQ-9 Billing: Yes ([id number]) Assessment & Plan Assessment & Plan (1) PAF (paroxysmal atrial fibrillation): Code(s): I48.0 - Paroxysmal atrial fibrillation Category: Medical Plan: Patient continue to follow-up with cardiology on atenolol 100 mg once a day flecainide and anticoagulation rivaroxaban. (2) Pacemaker: Code(s): Z95.0 - Presence of cardiac pacemaker Category: Medical Plan: Patient continues to follow-up with cardiology with pacemaker check. (3) Hypothyroid: Code(s): E03.9 - Hypothyroidism, unspecified Category: Medical Qualifiers: Hypothyroidism type: acquired Qualified Code(s): E03.9 - Hypothyroidism, unspecified Plan: Continue with thyroid medication every 5 mcg once a day (4) Hypertension: Code(s): I10 - Essential (primary) hypertension Category: Medical Qualifiers: Hypertension type: primary hypertension Qualified Code(s): I10 - Essential (primary) hypertension Plan: Continue with blood pressure medication. Decrease salt intake and exercise on atenolol and amlodipine (5) Hypercholesterolemia: Code(s): E78.00 - Pure hypercholesterolemia, unspecified Category: Medical Plan: Avoid fried foods, chicken skin, eggs, butter margarine, pastries and meat. Be it pork or beef they have a lot of cholesterol continue with rosuvastatin 10 mg at bedtime Plan - Continue rosuvastatin 10 mg at bedtime for hypercholesterolemia management. - Maintain current dose of atenolol and flecainide for atrial fibrillation; monitor symptoms and ensure continued follow-up with cardiology. - Continue rivaroxaban for anticoagulation. - Continue levothyroxine at 75 mcg once daily for hypothyroidism. - Suggest reduced intake of sodium to address slightly elevated BNP and minimize potential progression of heart failure symptoms. - Patient advised to regulate vitamin supplementation to every other day due to high serum levels. - Monitor bone health and continue osteoporosis management. - No immediate need for adjustment in chronic kidney disease management as renal function is stable. - Encourage regular physical activity; patient reports regular walks and caring for a dog. - Discuss protective measures during travel, including maintaining preventative practices against infections during the flu season. Orders: Orders Complete Blood Count Auto Diff 6 Months E78.00 - Pure hypercholesterolemia, unspecified Lipid Panel 6 Months E78.00 - Pure hypercholesterolemia, unspecified Comprehensive Met. Panel 6 Months E78.00 - Pure hypercholesterolemia, unspecified Vitamin B12 and Folate 6 Months E78.00 - Pure hypercholesterolemia, unspecified B Type Natriuretic Peptide 6 Months E78.00 - Pure hypercholesterolemia, unspecified Free T4 (Free Thyroxine) 6 Months E78.00 - Pure hypercholesterolemia, unspecified Hemoglobin A1c 6 Months E78.00 - Pure hypercholesterolemia, unspecified Thyroid Stimulating Hormone 6 Months E78.00 - Pure hypercholesterolemia, unspecified Vitamin D 25-OH Total 6 Months E78.00 - Pure hypercholesterolemia, unspecified UA w Microscopic 6 Months E78.00 - Pure hypercholesterolemia, unspecified
[2024-07-10 09:20] VITALS: BP 120/72; PULSE 69; O2SAT 98; BMI 21.3
== END 2024-07-10 09:54 | disposition home or self-care (01) ==
PROVIDERS: PCP Internal Medicine; Visit Provider Internal Medicine
DX: I48.0 Paroxysmal atrial fibrillation (principal); Z95.0 Presence of cardiac pacemaker; E03.9 Hypothyroidism, unspecified; I10 Essential (primary) hypertension; E78.00 Pure hypercholesterolemia, unspecified

== ENCOUNTER → 2024-07-10 09:10 | Outpatient (BNVA) | payer MEDICARE, SELFPAY | PROVIDERS: PCP Internal Medicine; Visit Provider Internal Medicine | DX: I48.0 Paroxysmal atrial fibrillation (principal); E03.9 Hypothyroidism, unspecified; E78.00 Pure hypercholesterolemia, unspecified; I10 Essential (primary) hypertension; Z95.0 Presence of cardiac pacemaker | CPT/HCPCS: 96127; 99212 ==

== ENCOUNTER → 2024-07-14 23:59 | Outpatient (BNV) | payer MEDICARE, SELFPAY ==
--- NOTE | 2024-07-31 08:31 | A.OFFVIS_ITS ---
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- [employer]otronik Allergies No Known Allergies [No Known Allergies*] Allergy (Verified 07/10/24 09:20) [facility] Medical History (Updated 03/14/24 @ 18:09 by Thong Matthews MD) History of shingles History of atrial fibrillation Hx of tachycardia-bradycardia syndrome Pacemaker Hypothyroid Humerus shaft fracture Dizziness Decreased hearing of both ears Breast cancer screening Osteoporosis screening Colon cancer screening Encounter for annual wellness exam in Medicare patient Dyspnea on exertion Restrictive lung disease Abnormal PFTs (pulmonary function tests) Fatty liver Hypercholesterolemia Chronic kidney disease T12 compression fracture Surgical History History of open reduction and internal fixation (ORIF) procedure History of lumpectomy of right breast Hx of colonoscopy History of permanent cardiac pacemaker placement History of back surgery Family History Father No problems noted. Mother No problems noted. Brother Prostate cancer Sister No problems noted. Son No problems noted. Daughter No problems noted. Family/Other Mental health disorder Substance use disorder Social History Housing: House Alcohol intake: current Alcohol intake frequency: a few times a week Patient Tobacco Use Status: Former Tobacco user Tobacco use type: Cigarette Years Smoked: 19 +/- e-Cigarette/Vaping Use: Never Used Second Hand Smoke Exposure: No service: No Current occupational status: retired Current occupation: right handed Current occupational exposures/hazards: No Cognitive needs: No Hearing needs: No Vision needs: Yes (Glasses) Office Procedures Cardiac Device Check Cardiac Device Check Details: HF monitoring Stable thoracic impedance. 18041-Rircbhw Device Interrogation, cardiac physiologic monitor system Procedure code (CPT) selection complete Assessment & Plan Assessment & Plan (1) Pacemaker: Code(s): Z95.0 - Presence of cardiac pacemaker Category: Medical Plan Coding Level of Care Code Procedure Only Diagnoses Pacemaker Z95.0 CPT Codes Cardiac Device Check - Cardiac Device 10: 41719-Ffjpund Device Interrogation, cardiac physiologic monitor system ([id number])
--- NOTE | 2024-07-31 08:38 | MHC.OFFVIS ---
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- [employer]ronik Allergies No Known Allergies [No Known Allergies*] Allergy (Verified 07/10/24 09:20) [facility] Medical History (Updated 03/14/24 @ 18:09 by Thong Matthews MD) History of shingles History of atrial fibrillation Hx of tachycardia-bradycardia syndrome Pacemaker Hypothyroid Humerus shaft fracture Dizziness Decreased hearing of both ears Breast cancer screening Osteoporosis screening Colon cancer screening Encounter for annual wellness exam in Medicare patient Dyspnea on exertion Restrictive lung disease Abnormal PFTs (pulmonary function tests) Fatty liver Hypercholesterolemia Chronic kidney disease T12 compression fracture Surgical History (Reviewed 07/03/24 @ 09:40 by Floriadlma Lr [facility]) History of open reduction and internal fixation (ORIF) procedure History of lumpectomy of right breast Hx of colonoscopy History of permanent cardiac pacemaker placement History of back surgery Family History (Reviewed 07/03/24 @ 09:40 by Floridalma Lr [facility]) Father No problems noted. Mother No problems noted. Brother Prostate cancer Sister No problems noted. Son No problems noted. Daughter No problems noted. Family/Other Mental health disorder Substance use disorder Social History (Reviewed 07/03/24 @ 09:40 by Floridalma Lr [facility]) Housing: House Alcohol intake: current Alcohol intake frequency: a few times a week Patient Tobacco Use Status: Former Tobacco user Tobacco use type: Cigarette Years Smoked: 19 +/- e-Cigarette/Vaping Use: Never Used Second Hand Smoke Exposure: No service: No Current occupational status: retired Current occupation: right handed Current occupational exposures/hazards: No Cognitive needs: No Hearing needs: No Vision needs: Yes (Glasses) Office Procedures Cardiac Device Check Cardiac Device Check Details: HF monitoring Stable thoracic impedance. 97929-Jmmrcjw Device Interrogation, cardiac physiologic monitor system Procedure code (CPT) selection complete Cardiac Device Check Cardiac Device Check Details: PPM Dual chamber No new alerts. Good battery life. 44412-CL Cardiac Device Check, pacemaker dual lead Procedure code (CPT) selection complete Assessment & Plan Assessment & Plan (1) Pacemaker: Code(s): Z95.0 - Presence of cardiac pacemaker Category: Medical Plan Coding Level of Care Code Procedure Only Diagnoses Pacemaker Z95.0 CPT Codes Cardiac Device Check - Cardiac Device 2: 89946-AR Cardiac Device Check, pacemaker dual lead ([id number]) Cardiac Device Check - Cardiac Device 10: 69501-Iserlmh Device Interrogation, cardiac physiologic monitor system ([id number])
== END ==
PROVIDERS: PCP Internal Medicine; Visit Provider Internal Medicine Cardiovascular Disease
DX: Z45.018 Encounter for adjustment and management of other part of cardiac pacemaker (principal)
CPT/HCPCS: 93294; 93297

== ENCOUNTER → 2024-08-03 23:59 | Outpatient (BNV) | payer MEDICARE, SELFPAY ==
--- NOTE | 2024-09-17 21:19 | MHC.OFFVIS ---
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- [employer] Allergies No Known Allergies [No Known Allergies*] Allergy (Verified 07/10/24 09:20) [facility] Medical History (Updated 08/29/24 @ 12:34 by Levon Santiago MD) History of shingles History of atrial fibrillation Hx of tachycardia-bradycardia syndrome Pacemaker Hypothyroid Humerus shaft fracture Dizziness Decreased hearing of both ears Breast cancer screening Osteoporosis screening Colon cancer screening Encounter for annual wellness exam in Medicare patient Dyspnea on exertion Restrictive lung disease Abnormal PFTs (pulmonary function tests) Fatty liver Hypercholesterolemia Chronic kidney disease T12 compression fracture Surgical History History of open reduction and internal fixation (ORIF) procedure History of lumpectomy of right breast Hx of colonoscopy History of permanent cardiac pacemaker placement History of back surgery Family History Father No problems noted. Mother No problems noted. Brother Prostate cancer Sister No problems noted. Son No problems noted. Daughter No problems noted. Family/Other Mental health disorder Substance use disorder Social History Housing: House Alcohol intake: current Alcohol intake frequency: a few times a week Patient Tobacco Use Status: Former Tobacco user Tobacco use type: Cigarette Years Smoked: 19 +/- e-Cigarette/Vaping Use: Never Used Second Hand Smoke Exposure: No service: No Current occupational status: retired Current occupation: right handed Current occupational exposures/hazards: No Cognitive needs: No Hearing needs: No Vision needs: Yes (Glasses) Office Procedures Cardiac Device Check Cardiac Device Check Details: Biotronik dual chamber PPM Battery life 40% No new alerts. 44665-Qtehbp Cardiac Device Interrogation, pacemaker Procedure code (CPT) selection complete Assessment & Plan Assessment & Plan (1) Pacemaker: Comment: Code(s): Z95.0 - Presence of cardiac pacemaker Category: Medical Plan: Coding Level of Care Code Procedure Only Diagnoses Pacemaker Z95.0 CPT Codes Cardiac Device Check - Cardiac Device 12: 08019-Hzmiyw Cardiac Device Interrogation, pacemaker ([id number])
== END ==
PROVIDERS: PCP Internal Medicine; Visit Provider Internal Medicine Cardiovascular Disease
DX: Z45.018 Encounter for adjustment and management of other part of cardiac pacemaker (principal)
CPT/HCPCS: 93294

== ENCOUNTER → 2024-08-24 23:59 | Outpatient (BNV) | payer MEDICARE, SELFPAY ==
--- NOTE | 2024-08-29 12:32 | A.OFFVIS_ITS ---
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- [employer] Allergies No Known Allergies [No Known Allergies*] Allergy (Verified 07/10/24 09:20) [facility] Medical History (Updated 08/29/24 @ 12:34 by Levon Santiago MD) History of shingles History of atrial fibrillation Hx of tachycardia-bradycardia syndrome Pacemaker Hypothyroid Humerus shaft fracture Dizziness Decreased hearing of both ears Breast cancer screening Osteoporosis screening Colon cancer screening Encounter for annual wellness exam in Medicare patient Dyspnea on exertion Restrictive lung disease Abnormal PFTs (pulmonary function tests) Fatty liver Hypercholesterolemia Chronic kidney disease T12 compression fracture Surgical History History of open reduction and internal fixation (ORIF) procedure History of lumpectomy of right breast Hx of colonoscopy History of permanent cardiac pacemaker placement History of back surgery Family History Father No problems noted. Mother No problems noted. Brother Prostate cancer Sister No problems noted. Son No problems noted. Daughter No problems noted. Family/Other Mental health disorder Substance use disorder Social History Housing: House Alcohol intake: current Alcohol intake frequency: a few times a week Patient Tobacco Use Status: Former Tobacco user Tobacco use type: Cigarette Years Smoked: 19 +/- e-Cigarette/Vaping Use: Never Used Second Hand Smoke Exposure: No service: No Current occupational status: retired Current occupation: right handed Current occupational exposures/hazards: No Cognitive needs: No Hearing needs: No Vision needs: Yes (Glasses) Office Procedures Cardiac Device Check Cardiac Device Check Details: Biotronik permanent pacemaker. Battery 40%. RV paced 6%. No new alerts. 70186-Oauqug Cardiac Device Interrogation, pacemaker Procedure code (CPT) selection complete Assessment & Plan Assessment & Plan (1) Pacemaker: Comment: Code(s): Z95.0 - Presence of cardiac pacemaker Category: Medical Plan Orders: Orders AMB Cardiac Device Follow-up 08/24/24 Z95.0 - Presence of cardiac pacemaker Coding Level of Care Code Procedure Only Diagnoses Pacemaker Z95.0 CPT Codes Cardiac Device Check - Cardiac Device 12: 32101-Ogqufz Cardiac Device Interrogation, pacemaker ([id number])
== END ==
PROVIDERS: PCP Internal Medicine; Visit Provider Internal Medicine Cardiovascular Disease
DX: Z45.018 Encounter for adjustment and management of other part of cardiac pacemaker (principal)
CPT/HCPCS: 93294

== ENCOUNTER 2024-09-18 08:16 | Outpatient (AMB) | payer MEDICARE, SELFPAY ==
--- NOTE | 2024-09-18 08:33 | AM.OFFVISNUR ---
Intake Visit Reasons: Prolia Injection Allergies No Known Allergies [No Known Allergies*] Allergy (Verified 07/10/24 09:20) Office Meds Prolia 60 mg/mL subcutaneous syringe Performing Provider: Thong Matthews MD [place] [facility] [place] [facility] [place] Administered by: Tawanna Galicia RN on 09/18/24 08:33 Dose Route Admin Location Dispensed Lot Number Expiration Date [facility] Language Interpreter 60 mg subcut left upper outer arm 1 mL [id number] 12/21/26 33869-886-40 AMGEN Assessment & Plan Assessment & Plan Orders: Orders AMB Denosumab Injection Patient Supplied Today M81.0 - Age-related osteoporosis without current pathological fracture Medications: New Prolia (denosumab) 60 mg subcut ONCE 1 mL 0RF NS M81.0 - Age-related osteoporosis without current pathological fracture Coding
--- OUTSIDE RECORDS SUMMARY | 2024-09-18 08:33 | XMS_ITS | Patient Health Record ---
Author Organization [facility] Address [address] [place] [address] Care Team Providers Care Commercial Intelligence Manager Name Role Phone Kennedi Hayden Unavailable [phone] Reason For Referral No Information Medications Medication SIG (Take, Route, Frequency, Duration) Notes Start Date End Date Status Caltrate 600+D [id number] ORAL for - [facility] 03/21/2014 Active Furosemide 20MG ORAL for - [facility] 03/21/2014 A ctive Multivitamins 1 ORAL daily for -[address] [place] [address] 12/21/2011 Active Spironolactone 50MG ORAL for - [facility] 03/21/2014 Active Lisinopril 10MG ORAL for - [facility] 03/21/2014 A ctive Multi-Vitamins ORAL for - [facility] 03/21/2014 Ac tive Atenolol 100MG 1 ORAL DAILY for -3 [facility] 12/21/2011 Active atorvastatin 20MG 1 ORAL daily for -[address] [place] [address] 01/09/2013 Active amLODIPine Besylate 10MG ORAL for -3 [facility] 03/21/2014 Active Aspirin EC 81MG 1 ORAL daily for -[address] [place] [address] 12/21/2011 Active Problems Problem Type SNOMED Code ICD Code Onset Dates Problem Status W/U Status Risk Notes Problem Benign essential hypertension (2306509) Essential hypertension, benign (401.1) Active confirmed Major Problem Menopausal symptom (13165293) Symptomatic menopausal or female climacteric states (627.2) Active confirmed Major Problem Postmenopausal atrophic vaginitis (04744185) Postmenopausal atrophic vaginitis (627.3) Active confirmed Diag Problem Osteoporosis (55725290) Unspecified osteoporosis (733.00) Active confirmed Diag Problem Gynecological examination normal (417358836130980) Routine gynecological examination (V72.31) Active confirmed Major Problem Screening for malignant neoplasm of colon (407647895) Special screening for malignant neoplasms, colon (V76.51) Active confirmed Major Plan Of Treatment No Information Insurance Providers Payer Name Payer Address Payer Phone Subscriber Number Group Number Insured Name Patient Relationship to Insured Coverage Start Date Coverage End Date [facility] [address] [place] [address] [id number] ESTEFANI HANCOCK Self - patient is the insured
== END 2024-09-18 08:36 | disposition home or self-care (01) ==
LOC: HO.HMCH 08:17
PROVIDERS: PCP Internal Medicine; Visit Provider Internal Medicine
DX: M81.0 Age-related osteoporosis without current pathological fracture (principal)

== ENCOUNTER → 2024-09-18 08:16 | Outpatient (BNVA) | payer MEDICARE, SELFPAY | PROVIDERS: PCP Internal Medicine; Visit Provider Internal Medicine | DX: M81.0 Age-related osteoporosis without current pathological fracture (principal) | CPT/HCPCS: 96372; J0897 ==

== ENCOUNTER → 2024-09-22 23:59 | Outpatient (BNV) | payer MEDICARE, SELFPAY ==
--- NOTE | 2024-10-23 09:01 | A.OFFVIS_ITS ---
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- Biotronik Allergies No Known Allergies [No Known Allergies*] Allergy (Verified 07/10/24 09:20) [facility] Medical History (Updated 08/29/24 @ 12:34 by Levon Santiago MD) History of shingles History of atrial fibrillation Hx of tachycardia-bradycardia syndrome Pacemaker Hypothyroid Humerus shaft fracture Dizziness Decreased hearing of both ears Breast cancer screening Osteoporosis screening Colon cancer screening Encounter for annual wellness exam in Medicare patient Dyspnea on exertion Restrictive lung disease Abnormal PFTs (pulmonary function tests) Fatty liver Hypercholesterolemia Chronic kidney disease T12 compression fracture Surgical History (Reviewed 07/03/24 @ 09:40 by Floridalma Lr [facility]) History of open reduction and internal fixation (ORIF) procedure History of lumpectomy of right breast Hx of colonoscopy History of permanent cardiac pacemaker placement History of back surgery Family History (Reviewed 07/03/24 @ 09:40 by Floridalma Lr [facility]) Father No problems noted. Mother No problems noted. Brother Prostate cancer Sister No problems noted. Son No problems noted. Daughter No problems noted. Family/Other Mental health disorder Substance use disorder Social History (Reviewed 07/03/24 @ 09:40 by Floridalma Lr [facility]) Housing: House Alcohol intake: current Alcohol intake frequency: a few times a week Patient Tobacco Use Status: Former Tobacco user Tobacco use type: Cigarette Years Smoked: 19 +/- e-Cigarette/Vaping Use: Never Used Second Hand Smoke Exposure: No service: No Current occupational status: retired Current occupation: right handed Current occupational exposures/hazards: No Cognitive needs: No Hearing needs: No Vision needs: Yes (Glasses) Office Procedures Cardiac Device Check Cardiac Device Check Details: Biotronik permanent pacemaker. Battery life 40%. Stable lead impedance and threshold. Stable thoracic impedance. [id number] Cardiac Device Interrogation, cardio physiologic monitor Procedure code (CPT) selection complete Assessment & Plan Assessment & Plan (1) Pacemaker: Comment: Code(s): Z95.0 - Presence of cardiac pacemaker Category: Medical Plan Coding Level of Care Code Procedure Only Diagnoses Pacemaker Z95.0 CPT Codes Cardiac Device Check - Cardiac Device 15: 10863-[id number] Cardiac Device Interrogation, cardio physiologic monitor ([id number])
== END ==
PROVIDERS: PCP Internal Medicine; Visit Provider Internal Medicine Cardiovascular Disease
DX: Z45.018 Encounter for adjustment and management of other part of cardiac pacemaker (principal)
CPT/HCPCS: 93294

== ENCOUNTER → 2024-10-23 23:59 | Outpatient (BNV) | payer MEDICARE, SELFPAY ==
--- NOTE | 2024-11-03 10:42 | A.OFFVIS_ITS ---
Intake Visit Reasons: Remote device check- Biotronik Allergies No Known Allergies [No Known Allergies*] Allergy (Verified 07/10/24 09:20) [facility] Medical History (Updated 08/29/24 @ 12:34 by Levon Santiago MD) History of shingles History of atrial fibrillation Hx of tachycardia-bradycardia syndrome Pacemaker Hypothyroid Humerus shaft fracture Dizziness Decreased hearing of both ears Breast cancer screening Osteoporosis screening Colon cancer screening Encounter for annual wellness exam in Medicare patient Dyspnea on exertion Restrictive lung disease Abnormal PFTs (pulmonary function tests) Fatty liver Hypercholesterolemia Chronic kidney disease T12 compression fracture Surgical History History of open reduction and internal fixation (ORIF) procedure History of lumpectomy of right breast Hx of colonoscopy History of permanent cardiac pacemaker placement History of back surgery Family History Father No problems noted. Mother No problems noted. Brother Prostate cancer Sister No problems noted. Son No problems noted. Daughter No problems noted. Family/Other Mental health disorder Substance use disorder Social History Housing: House Alcohol intake: current Alcohol intake frequency: a few times a week Patient Tobacco Use Status: Former Tobacco user Tobacco use type: Cigarette Years Smoked: 19 +/- e-Cigarette/Vaping Use: Never Used Second Hand Smoke Exposure: No service: No Current occupational status: retired Current occupation: right handed Current occupational exposures/hazards: No Cognitive needs: No Hearing needs: No Vision needs: Yes (Glasses) Office Procedures Cardiac Device Check Cardiac Device Check Details: PPM Battery 40% No new alerts. [id number] Cardiac Device Interrogation, pacemaker Procedure code (CPT) selection complete Assessment & Plan Assessment & Plan (1) Pacemaker: Comment: Code(s): Z95.0 - Presence of cardiac pacemaker Category: Medical Plan Coding Level of Care Code Procedure Only Diagnoses Pacemaker Z95.0 CPT Codes Cardiac Device Check - Cardiac Device 12: [id number]-Cyxtxv Cardiac Device Interrogation, pacemaker ([id number])
== END ==
PROVIDERS: PCP Internal Medicine; Visit Provider Internal Medicine Cardiovascular Disease
DX: Z45.018 Encounter for adjustment and management of other part of cardiac pacemaker (principal)
CPT/HCPCS: 93294

== ENCOUNTER → 2024-11-23 23:59 | Outpatient (BNV) | payer MEDICARE, SELFPAY ==
--- NOTE | 2024-11-28 14:34 | A.OFFVIS_ITS ---
Intake Visit Reasons: Remote device check- Biotronik Allergies No Known Allergies (No Known Allergies*) Allergy (Verified 07/10/24 09:20) [facility] Medical History (Updated 08/29/24 @ 12:34 by Levon Santiago MD) History of shingles History of atrial fibrillation Hx of tachycardia-bradycardia syndrome Pacemaker Hypothyroid Humerus shaft fracture Dizziness Decreased hearing of both ears Breast cancer screening Osteoporosis screening Colon cancer screening Encounter for annual wellness exam in Medicare patient Dyspnea on exertion Restrictive lung disease Abnormal PFTs (pulmonary function tests) Fatty liver Hypercholesterolemia Chronic kidney disease T12 compression fracture Surgical History (Reviewed 07/03/24 @ 09:40 by Floridalma Lr [facility]) History of open reduction and internal fixation (ORIF) procedure History of lumpectomy of right breast Hx of colonoscopy History of permanent cardiac pacemaker placement History of back surgery Family History (Reviewed 07/03/24 @ 09:40 by Floridalma Lr [facility]) Father No problems noted. Mother No problems noted. Brother Prostate cancer Sister No problems noted. Son No problems noted. Daughter No problems noted. Family/Other Mental health disorder Substance use disorder Social History (Reviewed 07/03/24 @ 09:40 by Floridalma Lr [facility]) Housing: House Alcohol intake: current Alcohol intake frequency: a few times a week Patient Tobacco Use Status: Former Tobacco user Tobacco use type: Cigarette Years Smoked: 19 +/- e-Cigarette/Vaping Use: Never Used Second Hand Smoke Exposure: No service: No Current occupational status: retired Current occupation: right handed Current occupational exposures/hazards: No Cognitive needs: No Hearing needs: No Vision needs: Yes (Glasses) Office Procedures Cardiac Device Check Cardiac Device Check Details: Remote pacemaker report generated 11/23/2024. Pacemaker function is adequate [id number] Cardiac Device Interrogation, pacemaker Procedure code (CPT) selection complete Assessment & Plan Assessment & Plan (1) Pacemaker: Comment: Code(s): Z95.0 - Presence of cardiac pacemaker Category: Medical Plan: See above Coding Level of Care Code Procedure Only Diagnoses Pacemaker Z95.0 CPT Codes Cardiac Device Check - Cardiac Device 12: [id number]-Yvroeo Cardiac Device Interrogation, pacemaker ([id number])
== END ==
PROVIDERS: PCP Internal Medicine; Visit Provider Internal Medicine Cardiovascular Disease
DX: Z45.018 Encounter for adjustment and management of other part of cardiac pacemaker (principal)
CPT/HCPCS: 93294

== ENCOUNTER → 2024-12-19 23:59 | Outpatient (BNV) | payer MEDICARE, SELFPAY ==
--- NOTE | 2025-01-02 12:02 | MHC.OFFVIS ---
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- Biotronik Allergies No Known Allergies (No Known Allergies*) Allergy (Verified 07/10/24 09:20) [facility] Medical History (Updated 08/29/24 @ 12:34 by Levon Santiago MD) History of shingles History of atrial fibrillation Hx of tachycardia-bradycardia syndrome Pacemaker Hypothyroid Humerus shaft fracture Dizziness Decreased hearing of both ears Breast cancer screening Osteoporosis screening Colon cancer screening Encounter for annual wellness exam in Medicare patient Dyspnea on exertion Restrictive lung disease Abnormal PFTs (pulmonary function tests) Fatty liver Hypercholesterolemia Chronic kidney disease T12 compression fracture Surgical History (Reviewed 07/03/24 @ 09:40 by Floridalma Lr [facility]) History of open reduction and internal fixation (ORIF) procedure History of lumpectomy of right breast Hx of colonoscopy History of permanent cardiac pacemaker placement History of back surgery Family History (Reviewed 07/03/24 @ 09:40 by Floridalma Lr [facility]) Father No problems noted. Mother No problems noted. Brother Prostate cancer Sister No problems noted. Son No problems noted. Daughter No problems noted. Family/Other Mental health disorder Substance use disorder Social History (Reviewed 07/03/24 @ 09:40 by Floridalma Lr [facility]) Housing: House Alcohol intake: current Alcohol intake frequency: a few times a week Patient Tobacco Use Status: Former Tobacco user Tobacco use type: Cigarette Years Smoked: 19 +/- e-Cigarette/Vaping Use: Never Used Second Hand Smoke Exposure: No service: No Current occupational status: retired Current occupation: right handed Current occupational exposures/hazards: No Cognitive needs: No Hearing needs: No Vision needs: Yes (Glasses) Office Procedures Cardiac Device Check Cardiac Device Check Details: Heart failure monitoring. Stable thoracic impedance. [id number] Cardiac Device Interrogation, cardio physiologic monitor Procedure code (CPT) selection complete Assessment & Plan Assessment & Plan (1) Pacemaker: Comment: Code(s): Z95.0 - Presence of cardiac pacemaker Category: Medical Plan Coding Level of Care Code Procedure Only Diagnoses Pacemaker Z95.0 CPT Codes Cardiac Device Check - Cardiac Device 15: 40123-[id number] Cardiac Device Interrogation, cardio physiologic monitor ([id number])
== END ==
PROVIDERS: PCP Internal Medicine; Visit Provider Internal Medicine Cardiovascular Disease
DX: Z45.018 Encounter for adjustment and management of other part of cardiac pacemaker (principal)
CPT/HCPCS: 93297

== ENCOUNTER → 2024-12-25 23:59 | Outpatient (BNV) | payer MEDICARE, SELFPAY ==
--- NOTE | 2024-12-27 14:37 | MHC.OFFVIS ---
Intake Visit Reasons: Remote device check- Biotronik Allergies No Known Allergies (No Known Allergies*) Allergy (Verified 07/10/24 09:20) [facility] Medical History (Updated 08/29/24 @ 12:34 by Levon Santiago MD) History of shingles History of atrial fibrillation Hx of tachycardia-bradycardia syndrome Pacemaker Hypothyroid Humerus shaft fracture Dizziness Decreased hearing of both ears Breast cancer screening Osteoporosis screening Colon cancer screening Encounter for annual wellness exam in Medicare patient Dyspnea on exertion Restrictive lung disease Abnormal PFTs (pulmonary function tests) Fatty liver Hypercholesterolemia Chronic kidney disease T12 compression fracture Surgical History History of open reduction and internal fixation (ORIF) procedure History of lumpectomy of right breast Hx of colonoscopy History of permanent cardiac pacemaker placement History of back surgery Family History Father No problems noted. Mother No problems noted. Brother Prostate cancer Sister No problems noted. Son No problems noted. Daughter No problems noted. Family/Other Mental health disorder Substance use disorder Social History Housing: House Alcohol intake: current Alcohol intake frequency: a few times a week Patient Tobacco Use Status: Former Tobacco user Tobacco use type: Cigarette Years Smoked: 19 +/- e-Cigarette/Vaping Use: Never Used Second Hand Smoke Exposure: No service: No Current occupational status: retired Current occupation: right handed Current occupational exposures/hazards: No Cognitive needs: No Hearing needs: No Vision needs: Yes (Glasses) Office Procedures Cardiac Device Check Cardiac Device Check Details: Remote pacemaker report generated 12/28/2024. Pacemaker function is adequate [id number]-[id number] Cardiac Device Interrogation, pacemaker Procedure code (CPT) selection complete Assessment & Plan Assessment & Plan (1) Pacemaker: Comment: Code(s): Z95.0 - Presence of cardiac pacemaker Category: Medical Plan: See above Coding Level of Care Code Procedure Only Diagnoses Pacemaker Z95.0 CPT Codes Cardiac Device Check - Cardiac Device 12: [id number] Cardiac Device Interrogation, pacemaker ([id number])
== END ==
PROVIDERS: PCP Internal Medicine; Visit Provider Internal Medicine Cardiovascular Disease
DX: Z45.018 Encounter for adjustment and management of other part of cardiac pacemaker (principal)
CPT/HCPCS: 93294

== ENCOUNTER 2025-01-01 09:09 | Outpatient (REF) | payer MEDICARE, SELFPAY ==
[2025-01-01 09:30] LABS: MANUAL DIFF FLAG NO
[2025-01-01 09:37] LABS: Hematocrit 42.3 % (37.0-47.0); Hemoglobin 14.3 g/dl (12.0-16.0); Imm Gran Abs Auto 0.02 X10*3/uL (0.00-0.03); Imm Gran Pct Auto 0.3 % (0.0-0.4); Lymphocytes Absolute Auto 1.2 X10*3/uL (1.2-4.9); Mean Corpuscular HGB Conc 33.8 g/dl (31.0-35.0); Mean Corpuscular Hemoglobin 33.6 pg (27.0-33.0); Mean Corpuscular Volume 99.3 fL (80.0-98.0); NRBC Abs Auto 0.000 X10*3/uL (0.0-0.012); NRBC Pct Auto 0.0 /100WBC (0.0-0.2); Platelet Count 208 X10*3/uL (160-400); Red Blood Count 4.26 X10*6/uL (4.20-5.50); White Blood Count 7.3 X10*3/uL (4.8-10.8)
--- OUTSIDE RECORDS SUMMARY | 2025-01-01 09:37 | XMS_ITS | Patient Health Record ---
[facility] Organization [facility] Address [address] [place] [address] Care Team Providers Care County Director Name Role Phone Kennedi Hayden Unavailable [phone] Reason For Referral No Information Medications Medication SIG (Take, Route, Frequency, Duration) Notes Start Date End Date Status Caltrate 600+D [id number] ORAL; Duration: -3 [place]- 03/21/2014 Active Furosemide 20MG ORAL; Duration: -3 [place]- 03/21/2014 Active Multivitamins 1 ORAL daily; Durati on: -3 [place]- 12/21/2011 Active Spironolactone 50MG ORAL; Duration: -3 [place]- 03/21/2014 Active Lisinopril 10MG ORAL; Duration: -3 [place]- 03/21/2014 Active Multi-Vitamins ORAL; Duration: -3 [place]- 03/21/2014 Active Atenolol 100MG 1 ORAL DAILY; Durati on: -3 [place]- 12/21/2011 Active atorvastatin 20MG 1 ORAL daily; Durati on: -3 [place]- 01/09/2013 Active amLODIPine Besylate 10MG ORAL; Duration: -3 [place]- 2013 Active Aspirin EC 81MG 1 ORAL daily; Durati on: -3 [place]- 12/21/2011 Active Problems Problem Type SNOMED Code ICD Code Onset Dates Problem Status W/U Status Risk Notes Problem Benign essential hypertension (9588722) Essential hypertension, benign (401.1) Active confirmed Major Problem Menopausal symptom (48703321) Symptomatic menopausal or female climacteric states (627.2) Active confirmed Major Problem Postmenopausal atrophic vaginitis (93330906) Postmenopausal atrophic vaginitis (627.3) Active confirmed Diag Problem Osteoporosis (87751261) Unspecified osteoporosis (733.00) Active confirmed Diag Problem Gynecological examination normal (943301128451772) Routine gynecological examination (V72.31) Active confirmed Major Problem Screening for malignant neoplasm of colon (825685438) Special screening for malignant neoplasms, colon (V76.51) Active confirmed Major Plan Of Treatment No Information Insurance Providers Payer Name Payer Address Payer Phone Subscriber Number Group Number Insured Name Patient Relationship to Insured Coverage Start Date Coverage End Date [facility] [address] [place] [address] [id number] ESTEFANI HANCOCK Self - patient is the insured
--- OUTSIDE RECORDS SUMMARY | 2025-01-01 09:37 | XMS_ITS | Patient Health Record ---
Author Organization [facility] Address [address] [place] [address] Care Team Providers Care Wind Tunnel Mechanic Name Role Phone Thong Matthews MD Primary Care Provider Petr Adan Jr Unavailable Allergies No Known Allergies Reason For Referral No Information Medications Medication [...] 1 tablet Orally Once a day Active Immunizations Vaccine Route Administration Date Status Comme nts Influenza Unknown 04/12/2018 Administered Influenza Unknown 02/21/2021 Administered Social History Alcohol Screen Question Answer Notes Did you [...] drinks (0 point) Points 4 Interpretation Positive Problems Problem Type SNOMED Code ICD Code Onset Dates Problem Status W/U Status Risk Notes Problem 32543274 Weight loss (R63.4) Active confirmed Problem 424718556 Elevated liver function tests (R79.89) Active confirmed Problem 410756013 Abnormal findings in stool (R19.5) Active confirmed Plan Of Treatment Pending Test Test Name Order Date 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) 02/10/2012 Future Test Test Name Order Date COLONOSCOPY 05/15/2021 Insurance Providers Payer Name Payer Address Payer Phone Subscriber Number Group Number Insured Name Patient Relationship to Insured Coverage Start Date Coverage End Date MEDICARE OF [place] [address] [place] [address] [phone] [id number] ESTEFANI HANCOCK Self - patient is the insured [employer] CLAIMS [address] [place] [address] [id number] ESTEFANI HANCOCK Self - patient is the insured Medical (General) History Medical History History ICD Code Elevated LFT's Hypertension Elevated cholesterol Osteoporosis pacemaker (tachybradycardia syndrome) atrial fibrillation Surgical History Surgery Date(Month/Year) Benign breast tumor cardiac pacemaker back surgery wrist
[2025-01-01 10:05] LABS: Hemoglobin A1C 128.1836 umol/L; Total Hemoglobin (HGBA1C) 3771.1181 umol/L
[2025-01-01 10:13] LABS: B Type Natriuretic Peptide 220 pg/mL (<100)
[2025-01-01 10:24] LABS: Alanine Aminotransferase 24 U/L (0-31); Albumin Level 4.3 g/dL (3.5-5.0); Alkaline Phosphatase 69 U/L (39-117); Anion Gap 13 (12-20); Aspartate Amino Transferase 30 U/L (5-31); Blood Urea Nitrogen 20 mg/dL (9-16); Calcium 9.2 mg/dL (8.4-10.2); Carbon Dioxide 26 mmol/L (22-29); Chloride 109 mmol/L (96-108); Cholesterol 164 mg/dL (<200); Estimated Glomerular Filt Rate 58; HDL Cholesterol 79 mg/dL (>40); Potassium 3.9 mmol/L (3.3-5.1); Sodium 144 mmol/L (135-145); Total Protein 7.6 g/dL (6.5-8.0); Triglycerides 98 mg/dL (<150)
[2025-01-01 10:40] LABS: Free T4 (Free Thyroxine) 1.33 ng/dL (0.71-1.85); Thyroid Stimulating Hormone 0.26 uIU/mL (0.32-4.0)
[2025-01-01 10:57] LABS: Folate 15.1 ng/mL (> or = 4.0); Vitamin B12 633 pg/mL (200-900)
== END 2025-01-01 09:10 | disposition home or self-care (01) ==
LOC: HO.LAB 09:09
PROVIDERS: PCP Internal Medicine; Visit Provider Internal Medicine
DX: E78.00 Pure hypercholesterolemia, unspecified (principal); Z13.21 Encounter for screening for nutritional disorder
CPT/HCPCS: 36415; 80053; 80061; 82306; 82607; 82746; 83036; 83880; 84439; 84443; 85025

== ENCOUNTER 2025-01-10 09:57 | Outpatient (AMB) | payer MEDICARE, SELFPAY ==
--- NOTE | 2025-01-10 10:07 | A.OFFVIS_ITS ---
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 Required: No Accompanied by: Self / Same As Patient Allergies No Known Allergies (No Known Allergies*) Allergy (Verified 07/10/24 09:20) Medication List - Last Reconciled 01/10/25 by Levon Santiago MD amlodipine 5 mg PO DAILY 90 days atenolol 100 mg PO .once daily cholecalciferol (vitamin D3) 25 mcg PO DAILY cyanocobalamin (vitamin B-12) mcg PO DAILY denosumab (Prolia) 60 mg subcut [id number] flecainide 50 mg orally Take 2 tablets in morning, one tablet in evening furosemide 20 mg PO DAILY 90 days levothyroxine 75 mcg PO DAILY multivitamin 1 tab PO DAILY rivaroxaban 20 mg PO DAILY 90 days rosuvastatin 10 mg PO BEDTIME HPI Comments Details: 79-year-old female here for follow-up. She was previously seeing Dr. Ortiz. She has background history of permanent pacemaker placement. I reviewed her Holter monitor from 2014 which showed paroxysmal atrial fibrillation and pauses in excess of 4 seconds. She does not remember much of her history. We do not have records available. She said she was told by Dr. Ortiz that she needs the pacemaker and had pacemaker placement. She also was on amiodarone 200 mg once a day. She was on Xarelto for AFib. No bleeding issues. She denies chest pain or shortness of breath. She was referred for blood workup because she was on amiodarone. Her liver function test was abnormal. Looking back her test has been abnormal. She said she has seen gastroenterology in the past and was told that she has fatty liver disease. She is denying any symptoms as before. No bleeding issues. After discussion she was taken off the amiodarone. Today she returns for follow-up. She has been walking her dog 3 times a day. She has no dyspnea or chest discomfort. No palpitations during the day but at nighttime she occasionally feels palpitations. She is saying she is not bothered by them. She is taking Xarelto regularly without any bleeding concerns. Overall she feels great. Blood pressure control is good. EKG showing sinus rhythm. 05/10/2023: She returns for follow-up. She has been doing well. Occasionally feels palpitations. Her pacemaker interrogation in the past has shown episodes of atrial fibrillation which were self-limiting. She was previously on amiodarone but due to elevated liver enzymes the amiodarone was stopped. We decided to start her on Multaq but there is interaction with Xarelto and I felt that stopping Xarelto is not the best thing to do currently. After discussion we have decided to start her flecainide 50 mg twice a day. 09/20/23: She returns for follow up. She recently had a viral illness with runny nose and body aches and has recovered from that. She said she was short of breath doing that but has no symptoms now. In particular no chest discomfort shortness of breath. She has been on flecainide for atrial fibrillation. Interestingly her ECG today is showing T-wave inversions which are new in the inferior and anterolateral leads. She has no symptoms. In particular no CP or SOB. She had a viral illness 2 weeks ago and is saying she has recovered from that. 01/03/24: She is here for follow-up. She has no symptoms. Exercising/walking daily without any complaints. On last visit she had T-wave inversions. She had a exercise stress echo where she was able to exercise to 4.6 metabolic equivalents without any significant ECG changes or wall motion abnormality on stress echocardiography. Echocardiography also showed normal biventricular function. She was not complaining of any symptoms at that time other than recent viral illness. Today ECG appears normal. Unsure what was the cause but sometimes we see T-wave inversions after cardiac pacing and she has a pacemaker so it is possible that these were memory T-waves. 07/03/2024: Luzma is here for follow-up. She has been doing well. No chest pain or shortness of breath. Occasional palpitations lasting for few seconds. Overall doing well with the atenolol and flecainide combination. On anticoagulation with rivaroxaban. 01/10/2025: She is here for follow-up. She has been taking medications regularly. She has no complaints. No bleeding issues with Xarelto. [facility] Medical History History of shingles History of atrial fibrillation Hx of tachycardia-bradycardia syndrome Pacemaker Hypothyroid Humerus shaft fracture Dizziness Decreased hearing of both ears Breast cancer screening Osteoporosis screening Colon cancer screening Encounter for annual wellness exam in Medicare patient Dyspnea on exertion Restrictive lung disease Abnormal PFTs (pulmonary function tests) Fatty liver Hypercholesterolemia Chronic kidney disease T12 compression fracture Surgical History History of open reduction and internal fixation (ORIF) procedure History of lumpectomy of right breast Hx of colonoscopy History of permanent cardiac pacemaker placement History of back surgery Family History Father No problems noted. Mother No problems noted. Brother Prostate cancer Sister No problems noted. Son No problems noted. Daughter No problems noted. Family/Other Mental health disorder Substance use disorder Social History Housing: House Alcohol intake: current Alcohol intake frequency: a few times a week Patient Tobacco Use Status: Former Tobacco user Tobacco use type: Cigarette Years Smoked: 19 +/- e-Cigarette/Vaping Use: Never Used Second Hand Smoke Exposure: No service: No Current occupational status: retired Current occupation: right handed Current occupational exposures/hazards: No Cognitive needs: No Hearing needs: No Vision needs: Yes (Glasses) Review of Systems Const Denies chills, Denies fatigue, Denies fever(s), Denies frequent falls, Denies weakness, Denies weight gain and Denies weight loss ENT Denies dizziness Card Denies chest pain, Denies leg edema, Denies lightheadedness, Denies palpitations, Denies dyspnea and Denies dyspnea on exertion Resp Denies cough, Denies dyspnea and Denies dyspnea on exertion GI Denies hematochezia Musc Denies abnormal gait, Denies muscle weakness, Denies numbness, Denies radiating pain into limb and Denies tingling Neuro Denies abnormal gait, Denies dizziness, Denies frequent falls, Denies numbness, Denies tingling and Denies weakness Endo Denies fatigue and Denies palpitations Physical Exam Vital Signs: Last Vital Signs Pulse 55 01/10/25 10:09 BP 110/62 01/10/25 10:09 BMI result Body Mass Index 21.0 GENERAL APPEARANCE: in no acute distress. NECK/THYROID: no carotid bruit, no jugular venous distention. SKIN: no suspicious lesions, warm and dry. HEART: no murmurs, regular rate and rhythm, S1, S2 normal. LUNGS: clear to auscultation bilaterally. ABDOMEN: normal, bowel sounds present, soft, nontender, nondistended. EXTREMITIES: no clubbing, cyanosis, or edema. PERIPHERAL PULSES: equal. NEUROLOGIC: nonfocal, alert and oriented. PSYCH: mood/affect full range. Office Procedures EKG Details: Atrial paced rhythm with prolonged AV conduction, nonspecific T-wave changes, QTC 438 milliseconds. 09437-[id number], Complete Assessment & Plan Assessment & Plan (1) PAF (paroxysmal atrial fibrillation): Code(s): I48.0 - Paroxysmal atrial fibrillation Category: Medical (2) Hypertension: Code(s): I10 - Essential (primary) hypertension Category: Medical Qualifiers: Hypertension type: primary hypertension Qualified Code(s): I10 - Essential (primary) hypertension (3) Pacemaker: Comment: Code(s): Z95.0 - Presence of cardiac pacemaker Category: Medical Plan [age] year female who is here for follow-up. She has background history of paroxysmal atrial fibrillation. She is currently on flecainide and atenolol. ECG in the office is showing atrial paced rhythm. She is denying any significant palpitations from atrial fibrillation. Blood pressure well controlled. Continue Xarelto for anticoagulation. She will follow up with us in 6 months. Thank you for allowing me to participate in the care of your patient. Please feel free to contact me if you have any questions. Coding Level of Care Code Est Pt Level 4 (90584) Diagnoses PAF (paroxysmal atrial fibrillation) I48.0 Primary hypertension I10 Hypertension type: primary hypertension Pacemaker Z95.0 CPT Codes EKG - CPT: 08188-Xtzqzphxylklpynmb, Complete ([id number])
[2025-01-10 10:09] VITALS: BP 110/62; PULSE 55; BMI 21.0
--- OUTSIDE RECORDS SUMMARY | 2025-01-10 10:56 | XMS_ITS | Patient Health Record ---
Author Organization [facility] Address [address] [place] [address] Care Team Providers Care Lean Process Deployment Consultant Name Role Phone Thong Matthews MD Primary Care Provider Petr Adan Jr Unavailable [phone] Allergies No Known Allergies Reason For Referral [...] Problem Status W/U Status Risk Notes Problem 59044071 Weight loss (R63.4) Active confirmed Problem 004830286 Elevated liver function tests (R79.89) Active confirmed Problem 274989091 Abnormal findings in stool (R19.5) Active confirmed Plan Of Treatment Pending Test Test Name Order Date 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) 02/10/2012 Future Test Test Name Order Date COLONOSCOPY 05/15/2021 Insurance Providers Payer Name Payer Address Payer Phone Subscriber Number Group Number Insured Name Patient Relationship to Insured Coverage Start Date Coverage End Date MEDICARE OF [place] [address] [place] [address] [id number] ESTEFANI HANCOCK Self - patient is the insured [employer] CLAIMS [address] [place] [address] [phone] [id number] ESTEFANI HANCOCK Self - patient is the insured Medical (General) History Medical History History ICD Code Elevated LFT's Hypertension Elevated cholesterol Osteoporosis pacemaker (tachybradycardia syndrome) atrial fibrillation Surgical History Surgery Date(Month/Year) Benign breast tumor cardiac pacemaker back surgery wrist
--- OUTSIDE RECORDS SUMMARY | 2025-01-10 10:56 | XMS_ITS | Patient Health Record ---
Author Organization [facility] Address [address] [place] [address] Care Team Providers Care Scrap Baller Name Role Phone Kennedi Hayden Unavailable [phone] Reason For Referral No Information Medications Medication SIG (Take, Route, Frequency, Duration) Notes Start Date End Date Status Caltrate 600+D [id number] ORAL; Duration: -3 [facility] [place]- 03/21/2014 Active Furosemide 20MG ORAL; Duration: -3 [facility] [place]- 03/21/2014 Active Multivitamins 1 ORAL daily; Durati on: -3 [facility] [place]- 12/21/2011 Active Spironolactone 50MG ORAL; Duration: -3 [facility] [place]- 03/21/2014 Active Lisinopril 10MG ORAL; Duration: -3 [facility] [place]- 03/21/2014 Active Multi-Vitamins ORAL; Duration: -3 [facility] [place]- 03/21/2014 Active Atenolol 100MG 1 ORAL DAILY; Durati on: -3 [facility] [place]- 12/21/2011 Active atorvastatin 20MG 1 ORAL daily; Durati on: -3 [facility] [place]- 01/09/2013 Active amLODIPine Besylate 10MG ORAL; Duration: -3 [facility] [place]- 2013 Active Aspirin EC 81MG 1 ORAL daily; Durati on: -3 [facility] [place]- 12/21/2011 Active Problems Problem Type SNOMED Code ICD Code Onset Dates Problem Status W/U Status Risk Notes Problem Benign essential hypertension (7253788) Essential hypertension, benign (401.1) Active confirmed Major Problem Menopausal symptom (90529845) Symptomatic menopausal or female climacteric states (627.2) Active confirmed Major Problem Postmenopausal atrophic vaginitis (93124570) Postmenopausal atrophic vaginitis (627.3) Active confirmed Diag Problem Osteoporosis (28460599) Unspecified osteoporosis (733.00) Active confirmed Diag Problem Gynecological examination normal (739170650340767) Routine gynecological examination (V72.31) Active confirmed Major Problem Screening for malignant neoplasm of colon (261556693) Special screening for malignant neoplasms, colon (V76.51) Active confirmed Major Plan Of Treatment No Information Insurance Providers Payer Name Payer Address Payer Phone Subscriber Number Group Number Insured Name Patient Relationship to Insured Coverage Start Date Coverage End Date [facility] [address] [place] [address] [id number] ESTEFANI HANCOCK Self - patient is the insured
== END 2025-01-10 10:28 | disposition home or self-care (01) ==
LOC: HO.HCS 09:58
PROVIDERS: PCP Internal Medicine; Visit Provider Internal Medicine Cardiovascular Disease
DX: I48.0 Paroxysmal atrial fibrillation (principal); I10 Essential (primary) hypertension; Z95.0 Presence of cardiac pacemaker
CPT/HCPCS: 93010; 99214

== ENCOUNTER → 2025-01-10 09:57 | Outpatient (BNVA) | payer MEDICARE, SELFPAY | PROVIDERS: PCP Internal Medicine; Visit Provider Internal Medicine Cardiovascular Disease | DX: I48.0 Paroxysmal atrial fibrillation (principal); I10 Essential (primary) hypertension; Z95.0 Presence of cardiac pacemaker; R94.31 Abnormal electrocardiogram [ECG] [EKG] | CPT/HCPCS: 93005; 99212 ==

== ENCOUNTER 2025-01-11 12:23 | Outpatient (AMB) | payer MEDICARE, SELFPAY ==
--- NOTE | 2025-01-11 12:37 | MHC.PC.OV ---
Vital Signs 01/11/25 12:38 Height 4 ft 9.5 in Weight 99 lb BMI 21.1 Blood Pressure Location Lt brachial Position Sitting Respiration 18 Pulse Source Pulse Oximeter Temp Source Temporal Artery Scan Oxygen Delivery Method Room Air Intake Visit Reasons: SWV [id number] Care Management Assistant Required: No Accompanied by: Self / Same As Patient Allergies No Known Allergies (No Known Allergies*) Allergy (Verified 01/11/25 12:38) Tobacco use date assessed: 01/11/25 Last assessed Fall Risk: 01/11/25 Dental Screening Dental Screen Date: 01/11/25 [facility] Medical History (Updated 01/11/25 @ 12:42 by Thong Matthews MD) Positive colorectal cancer screening using Cologuard test History of shingles History of atrial fibrillation Hx of tachycardia-bradycardia syndrome Pacemaker Hypothyroid Humerus shaft fracture Dizziness Decreased hearing of both ears Breast cancer screening Osteoporosis screening Colon cancer screening Encounter for annual wellness exam in Medicare patient Dyspnea on exertion Restrictive lung disease Abnormal PFTs (pulmonary function tests) Fatty liver Hypercholesterolemia Chronic kidney disease T12 compression fracture Surgical History History of open reduction and internal fixation (ORIF) procedure History of lumpectomy of right breast Hx of colonoscopy History of permanent cardiac pacemaker placement History of back surgery Family History Father No problems noted. Mother No problems noted. Brother Prostate cancer Sister No problems noted. Son No problems noted. Daughter No problems noted. Family/Other Mental health disorder Substance use disorder Social History Housing: House Alcohol intake: current Alcohol intake frequency: a few times a week Patient Tobacco Use Status: Former Tobacco user Tobacco use type: Cigarette Years Smoked: 19 +/- e-Cigarette/Vaping Use: Never Used Second Hand Smoke Exposure: No service: No Current occupational status: retired Current occupation: right handed Current occupational exposures/hazards: No Cognitive needs: No Hearing needs: No Vision needs: Yes (Glasses) Questionnaire PHQ-9 Over the last 2 weeks, how often have you been bothered by any of the following problems? 1. Little interest or pleasure in doing things: not at all 2. Feeling down, depressed, or hopeless: not at all 3. Trouble falling or staying asleep, or sleeping too much: not at all 4. Feeling tired or having little energy: not at all 5. Poor appetite or overeating: not at all 6. Feeling bad about yourself - or that you are a failure or have let yourself or your family down: not at all 7. Trouble concentrating on things, such as reading the newspaper or watching television: not at all 8. Moving or speaking so slowly that other people could have noticed. Or the opposite - being so fidgety or restless that you have been moving around a lot more than usual: not at all 9. Thoughts that you would be better off or of hurting yourself in some way: not at all Total score: 0 Depression Screening Interpretation: Negative Depression Screening Done: Yes 76917 - PHQ-9 Billing: Yes Source: Developed by Drs. Kameron Joyner, Miladis Gauthier, Oj Casillas and colleagues, with an educational gabriella from [employer]. Thrive Questionnaire Date Thrive assessed: 01/11/25 AUDIT C Alcohol Use Questionnaire (AUDIT-C) 2. How many drinks containing alcohol do you have on a typical day when you are drinking?: 1 or 2 3. How often do you have six or more drinks on one occasion?: Never Total Score: 0 KYLAH-7 AMB Questionnaire KYLAH-7 Date KYLAH - 7 assessed: 01/11/25 Source: Developed by Drs. Kameron Joyner, Miladis Gauthier, Oj Casillas and colleagues, with an educational gabriella from [employer]. Review of Systems Const Denies poor appetite and Denies weakness Eyes Denies no additional complaints ENT Reports Normal hearing present, Denies dizziness, Denies nasal congestion, Denies tinnitus and Denies sore throat Card Denies chest pain, Denies syncope, Denies rapid heart rate and Denies dyspnea Resp Denies cough and Denies dyspnea GI Denies change in stool character, Reports constipation, Denies diarrhea, Denies nausea and Denies vomiting Denies urinary frequency, Denies difficulty voiding and Denies dysuria Neuro Reports Normal hearing present, Denies confusion, Denies dizziness, Denies syncope and Denies weakness Psych Denies confusion Physical exam (Primary Care) Vital Signs: Last Vital Signs Resp 18 01/11/25 12:38 Oxygen Delivery Method Room Air 01/11/25 12:38 Tobacco/Smoking Status: Tobacco use Status Tobacco use date assessed 07/10/24 07/10/24 09:25 Patient Tobacco Use Status Former Tobacco user 07/10/24 09:25 Tobacco use type Cigarette 07/10/24 09:25 e-Cigarette/Vaping Use Never Used 07/10/24 09:25 Depression Screening Interpretation: Negative Thrive Assessment: Date of Thrive Assessment Date Thrive assessed 07/10/24 07/10/24 09:25 Const General: No confusion Orientation/consciousness: No confusion HENMT Head: Yes normocephalic Ears: external ears normal and TM's normal bilaterally Face and sinus: Yes normal facial exam Mouth: moist mucous membranes Throat: Yes tonsils normal Eyes Conjunctivae: conjunctivae normal Pupils: Equal, round and reactive pupils present and Pupil accommodation reflex normal Direct Ophthalmoscopy: normal light reflex Neck Neck: No lymphadenopathy Thyroid: Thyroid normal Chest Chest palpation & inspection: normal inspection of the chest Resp Effort & Inspection: normal respiratory effort and no audible wheezes Auscultation: clear to auscultation bilaterally, no crackles, no wheezes and lung sounds not diminished Cardio Rate: regular rate Rhythm: regular rhythm Peripheral pulses: radial pulses present and dorsalis pedis present GI Palpation (GI): no masses Auscultation: normal bowel sounds and normoactive bowel sounds Rectal Exam - Female: deferred Skin General skin exam: no rashes or lesions noted Rashes: no rashes Neuro General: No confusion Cranial nerves: Yes Equal, round and reactive pupils present and Yes Normal hearing present Cognition (Neuro): normal cognition Gait exam (Neuro): Normal gait present Motor exam (neuro): 5/5 motor strength present throughout Deep tendon reflexes (DTR's): Right brachioradialis reflex intensity grade: 2+, Left brachioradialis reflex intensity grade: 2+, Right patellar reflex intensity grade: 2+ and Left patellar reflex intensity grade: 2+ Extrem General: No edema Coding Diagnoses Medicare annual wellness visit, subsequent Z00.00 PAF (paroxysmal atrial fibrillation) I48.0 Primary hypertension I10 Hypertension type: primary hypertension Pacemaker Z95.0 Hypercholesterolemia E78.00 Acquired hypothyroidism E03.9 Hypothyroidism type: acquired Age-related osteoporosis without current pathological fracture M81.0 Osteoporosis type: age-related Presence of current pathological fracture: without current pathological fracture Additional Codes PHQ-9 - 01227 - PHQ-9 Billing: Yes ([id number]) Assessment & Plan Assessment & Plan (1) Medicare annual wellness visit, subsequent: Code(s): Z00.00 - Encounter for general adult medical examination without abnormal findings Category: Medical (2) PAF (paroxysmal atrial fibrillation): Code(s): I48.0 - Paroxysmal atrial fibrillation Category: Medical (3) Hypertension: Code(s): I10 - Essential (primary) hypertension Category: Medical Qualifiers: Hypertension type: primary hypertension Qualified Code(s): I10 - Essential (primary) hypertension (4) Pacemaker: Comment: Code(s): Z95.0 - Presence of cardiac pacemaker Category: Medical (5) Hypercholesterolemia: Code(s): E78.00 - Pure hypercholesterolemia, unspecified Category: Medical (6) Hypothyroid: Code(s): E03.9 - Hypothyroidism, unspecified Category: Medical Qualifiers: Hypothyroidism type: acquired Qualified Code(s): E03.9 - Hypothyroidism, unspecified (7) Osteoporosis: Comment: Jorge February 2023 Code(s): M81.0 - Age-related osteoporosis without current pathological fracture Category: Medical Qualifiers: Osteoporosis type: age-related Presence of current pathological fracture: without current pathological fracture Qualified Code(s): M81.0 - Age-related osteoporosis without current pathological fracture
[2025-01-11 12:38] VITALS: BP 102/60; PULSE 55; RESP 18; TEMP 36.1; O2SAT 95; BMI 21.1
--- NOTE | 2025-01-11 12:42 | AM.OFFVISMDC ---
Intake Vital Signs 01/11/25 12:38 Height 4 ft 9.5 in Weight 99 lb BMI 21.1 BP 102/60 Blood Pressure Location Lt brachial Position Sitting Respiration 18 Pulse 55 Pulse Source Pulse Oximeter Temp 97 F Temp Source Temporal Artery Scan Pulse Oximetry (%) 95 Oxygen Delivery Method Room Air Intake Visit Reasons: [facility] G0439 [place] Cooper Required: No Accompanied by: Self / Same As Patient Allergies No Known Allergies (No Known Allergies*) Allergy (Verified 01/11/25 12:45) Medication List - Last Reconciled 01/11/25 by Thong Matthews MD amlodipine 5 mg PO DAILY 90 days atenolol 100 mg PO DAILY cholecalciferol (vitamin D3) 25 mcg PO DAILY cyanocobalamin (vitamin B-12) mcg PO DAILY denosumab (Prolia) 60 mg subcut [id number] flecainide 50 mg orally Take 2 tablets in morning, one tablet in evening furosemide 20 mg PO DAILY 90 days levothyroxine 75 mcg PO DAILY multivitamin 1 tab PO DAILY rivaroxaban (Xarelto) 15 mg PO DAILY rosuvastatin 10 mg PO BEDTIME HPI SWV G0439 HPI Details [facility] cardiology [facility], Orthopedics [facility], Gastroenterology Dr. Rainey hand surgeon Dr. Milner, pulmonary doctor [facility] Medical History (Updated 01/11/25 @ 12:42 by Thong Matthews MD) Positive colorectal cancer screening using Cologuard test History of shingles History of atrial fibrillation Hx of tachycardia-bradycardia syndrome Pacemaker Hypothyroid Humerus shaft fracture Dizziness Decreased hearing of both ears Breast cancer screening Osteoporosis screening Colon cancer screening Encounter for annual wellness exam in Medicare patient Dyspnea on exertion Restrictive lung disease Abnormal PFTs (pulmonary function tests) Fatty liver Hypercholesterolemia Chronic kidney disease T12 compression fracture Surgical History History of open reduction and internal fixation (ORIF) procedure History of lumpectomy of right breast Hx of colonoscopy History of permanent cardiac pacemaker placement History of back surgery Family History Father No problems noted. Mother No problems noted. Brother Prostate cancer Sister No problems noted. Son No problems noted. Daughter No problems noted. Family/Other Mental health disorder Substance use disorder Social History (Updated 01/11/25 @ 12:58 by Thong Matthews MD) Housing: House Alcohol intake: current Alcohol intake frequency: a few times a week Comment: wine QD 1 glass Patient Tobacco Use Status: Former Tobacco user Tobacco use type: Cigarette Years Smoked: 18 +/- e-Cigarette/Vaping Use: Never Used Second Hand Smoke Exposure: No service: No Current occupational status: retired Current occupation: right handed Current occupational exposures/hazards: No Cognitive needs: No Hearing needs: No Vision needs: Yes (Glasses) Questionnaire Medicare Wellness Checkup [age] What gender do you identify with?: female During the past 4 weeks, how much have you been bothered by emotional problems such as feeling anxious, depressed, irritable, sad or downhearted, and blue?: not at all During the past 4 weeks, has your physical & emotional health limited your social activities with family, friends, neighbors, or groups?: not at all During the past 4 weeks, how much bodily pain have you generally had?: mild pain During the past 4 weeks, was someone available to help you if you needed & wanted help?: yes, as much as I wanted During the past 4 weeks, what was the hardest physical activity you could do for at least 2 minutes?: heavy Can you get to places out of walking distance without help? (For eg., can you travel alone on buses, taxis or drive your car?): Yes Can you go shopping for groceries or clothes without someone's help?: Yes Can you prepare your own meals?: Yes Can you do your housework without help?: Yes Because of any health problems, do you need the help of another person with your personal care needs such as eating, bathing, dressing or getting around the house?: No Can you handle your own money without help?: Yes During the past 4 weeks, how would you rate your health in general?: very good During the past 4 weeks how have things been going for you?: pretty well Are you having difficulties driving your car?: no Do you always fasten your seat belt when you are in a car?: yes, usually During past 4 weeks, have you been bothered by the following: never: Trouble eating well? and Problems using the telephone? and seldom: Falling or dizzy when standing up, Teeth or denture problems? and Tiredness or fatigue? Have you fallen 2 or more times in the past year?: No Are you afraid of falling?: No Are you a smoker?: no During the past 4 weeks, how many drinks of wine, beer, or other alcoholic beverages did you have?: 6-9 drinks per week Do you exercise for about 20 minutes 3 or more times a week?: yes, most of the time Have you been given information to help with the following?: no: Hazards in your house that might hurt you? and no: Keeping track of your medications? How often do you have trouble taking medicines the way you have been told to take them?: I always take medicine as prescribed How confident are you that you can control & manage most of your health problems?: very confident What is your race?: White PHQ-9 Over the last 2 weeks, how often have you been bothered by any of the following problems? 1. Little interest or pleasure in doing things: not at all 2. Feeling down, depressed, or hopeless: not at all 3. Trouble falling or staying asleep, or sleeping too much: not at all 4. Feeling tired or having little energy: not at all 5. Poor appetite or overeating: not at all 6. Feeling bad about yourself - or that you are a failure or have let yourself or your family down: not at all 7. Trouble concentrating on things, such as reading the newspaper or watching television: not at all 8. Moving or speaking so slowly that other people could have noticed. Or the opposite - being so fidgety or restless that you have been moving around a lot more than usual: not at all 9. Thoughts that you would be better off or of hurting yourself in some way: not at all Total score: 0 53235 - PHQ-9 Billing: Yes Source: Developed by Drs. Kameron Joyner, Miladis Gauthier, Oj Casillas and colleagues, with an educational gabriella from [employer]. Review of Systems Const Denies poor appetite and Denies weakness Eyes Denies no additional complaints ENT Reports Normal hearing present, Denies dizziness, Denies nasal congestion, Denies tinnitus and Denies sore throat Card Denies chest pain, Denies syncope, Denies rapid heart rate and Denies dyspnea Resp Denies cough and Denies dyspnea GI Denies change in stool character, Reports constipation, Denies diarrhea, Denies nausea and Denies vomiting Denies urinary frequency, Denies difficulty voiding and Denies dysuria Neuro Reports Normal hearing present, Denies confusion, Denies dizziness, Denies syncope and Denies weakness Psych Denies confusion Physical Exam Vital Signs: Last Vital Signs Temp 97 F 01/11/25 12:38 Pulse 55 01/11/25 12:38 Resp 18 01/11/25 12:38 BP 102/60 01/11/25 12:38 Pulse Ox 95 01/11/25 12:38 Oxygen Delivery Method Room Air 01/11/25 12:38 BMI result Body Mass Index 21.1 Const General: No confusion Orientation/consciousness: No confusion HEENT Head: Yes normocephalic Ears: external ears normal and TM's normal bilaterally Face and sinus: Yes normal facial exam Mouth: moist mucous membranes Throat: Yes tonsils normal Eyes Conjunctivae: conjunctivae normal Pupils: Equal, round and reactive pupils present and Pupil accommodation reflex normal Direct Ophthalmoscopy: normal light reflex Neck Neck: No lymphadenopathy Thyroid: Thyroid normal Chest Chest palpation & inspection: normal inspection of the chest Resp Effort & Inspection: normal respiratory effort and no audible wheezes Auscultation: clear to auscultation bilaterally, no crackles, no wheezes and lung sounds not diminished Cardio Rate: regular rate Rhythm: regular rhythm Peripheral pulses: radial pulses present and dorsalis pedis present GI Palpation (GI): no masses Auscultation: normal bowel sounds and normoactive bowel sounds Rectal Exam - Female: deferred Skin General skin exam: no rashes or lesions noted Rashes: no rashes Neuro General: No confusion Cranial nerves: Yes Equal, round and reactive pupils present and Yes Normal hearing present Cognition (Neuro): normal cognition Gait exam (Neuro): Normal gait present Motor exam (neuro): 5/5 motor strength present throughout Deep tendon reflexes (DTR's): Right brachioradialis reflex intensity grade: 2+, Left brachioradialis reflex intensity grade: 2+, Right patellar reflex intensity grade: 2+ and Left patellar reflex intensity grade: 2+ Extrem General: No edema Assessment & Plan Assessment & Plan (1) Medicare annual wellness visit, subsequent: Code(s): Z00.00 - Encounter for general adult medical examination without abnormal findings Plan: Patient is advised to eat healthy, keep well hydrated, keep active and have adequate sleep. (2) PAF (paroxysmal atrial fibrillation): Code(s): I48.0 - Paroxysmal atrial fibrillation Plan: Continue with flecainide anticoagulation and atenolol (3) Hypertension: Code(s): I10 - Essential (primary) hypertension Qualifiers: Hypertension type: primary hypertension Qualified Code(s): I10 - Essential (primary) hypertension Plan: Continue with blood pressure medication. Decrease salt intake and exercise patient takes amlodipine 5 mg once a day atenolol 100 mg once a day (4) Pacemaker: Comment: Code(s): Z95.0 - Presence of cardiac pacemaker Plan: Patient under Cardiology for device check (5) Hypercholesterolemia: Code(s): E78.00 - Pure hypercholesterolemia, unspecified Plan: Avoid fried foods, chicken skin, eggs, butter margarine, pastries and meat. Be it pork or beef they have a lot of cholesterol LDL goal of less than 100 and triglyceride of less than 150 patient is on rosuvastatin 10 mg once a day (6) Hypothyroid: Code(s): E03.9 - Hypothyroidism, unspecified Qualifiers: Hypothyroidism type: acquired Qualified Code(s): E03.9 - Hypothyroidism, unspecified Plan: Continue with thyroid medication (7) Osteoporosis: Comment: Prolia February 2023 Code(s): M81.0 - Age-related osteoporosis without current pathological fracture Qualifiers: Osteoporosis type: age-related Presence of current pathological fracture: without current pathological fracture Qualified Code(s): M81.0 - Age-related osteoporosis without current pathological fracture Plan: Patient on Prolia and up-to-date with bone density Plan History of Present Illness The patient is a 79-year-old female presenting for an annual wellness visit. She has a history of chronic kidney disease, hypercholesterolemia, and hypertension, which have been managed over the years. The patient experienced a distal radius fracture in November 2020, which has since healed without complications. She also has a history of hypothyroidism, managed with thyroid medication, although recent tests indicate a low TSH level requiring follow-up. The patient has atrial fibrillation and a permanent pacemaker due to a previous long pause of 4 seconds. She is on anticoagulation therapy with Xarelto and takes flecainide and atenolol for rhythm control. Osteoporosis is managed with Prolia, with the last dose administered in August 2024. Her bone density was last assessed in September 2023, and she remains up to date with her screenings. Recent blood work from December 2024 shows macrocytosis without anemia, normal renal function, and mildly elevated blood sugar with a normal hemoglobin A1c. Cholesterol levels are well-controlled with an LDL of 66 mg/dL. Health Maintenance - Annual wellness visit conducted - Bone density screening up to date as of September 2023 - Mammogram completed in June 2024 - Colonoscopy last performed in June 2021 - Prolia administered for osteoporosis in August 2024 - Blood work in December 2024 showed macrocytosis, normal renal function, and mildly elevated blood sugar - Cholesterol levels well-controlled with LDL at 66 mg/dL Social History - Alcohol: Consumes one glass of wine daily with dinner - Smoking: Quit smoking over 30 years ago - Exercise: Walks daily for 30 minutes Review of Systems - Cardiovascular: Reports occasional palpitations. Denies chest pain, syncope, or dizziness. - Respiratory: Denies dyspnea, cough, or wheezing. - Gastrointestinal: Denies nausea, vomiting, or dysphagia. Reports normal bowel movements. - Genitourinary: Reports nocturia three times per night. Denies dysuria or hematuria. - Neurological: Denies headaches or balance issues. Reports some hearing difficulty. Physical Exam General: Cooperative, healthy appearing, comfortable, no acute distress and well developed Orientation: Patient oriented x3 Limitations: No limitations Head: Normal to inspection Ears: Hearing grossly normal bilaterally Nose: Normal external nose present Face and sinus: Normal facial exam Eyes: Appearance normal, both eyes and all related structures Neck: Normal visual inspection and Yes full ROM Respiratory: Normal respiratory effort and able to speak in complete sentences. Clear to auscultation bilaterally Cardiovascular: Regular rate and rhythm. Normal S1 and S2 GI: Normal to inspection. Soft to palpation and nontender Skin: No rashes or lesions noted Neuro: Patient oriented x3 Extremities: Normal to inspection Results - Labs: Macrocytosis noted, no anemia. Normal renal function. Mildly elevated blood sugar, normal hemoglobin A1c. - Labs: LDL cholesterol at 66 mg/dL - Imaging: Bone density last assessed in September 2023 Plan The patient will continue her current medications, including atenolol, flecainide, and Xarelto, for the management of atrial fibrillation and hypertension. Her thyroid function will be monitored due to the low TSH level, and adjustments to her thyroid medication may be necessary based on follow-up results. Osteoporosis management will continue with Prolia, and her bone density will be reassessed as per the standard schedule. The patient is advised to maintain her current exercise routine and dietary habits to support overall health and manage her chronic conditions. Follow-up blood work will be ordered in six months to monitor her macrocytosis and blood sugar levels. She is encouraged to keep up with her preventative screenings, including mammograms and colonoscopies, as per the recommended guidelines. Patient was informed and verbally consented to the use of an ambient scribe for clinic note documentation during this visit. Discussion Notes During the visit, I discussed with the patient the importance of continuing her current medication regimen for atrial fibrillation and hypertension. We reviewed her thyroid function test results, noting the low TSH level, and I explained the need for follow-up monitoring to determine if any adjustments to her thyroid medication are necessary. I emphasized the importance of maintaining her osteoporosis treatment with Prolia and keeping up with her bone density assessments. We also discussed her recent blood work results, including macrocytosis and mildly elevated blood sugar, and the plan to re-evaluate these in six months. I encouraged her to continue her exercise routine and healthy dietary habits to support her overall health. Patient Instructions - Continue taking your medications as prescribed, including atenolol, flecainide, and Xarelto. - Follow up on thyroid function tests as scheduled to monitor TSH levels. - Maintain your current exercise routine and dietary habits. - Schedule follow-up blood work in six months to check macrocytosis and blood sugar levels. - Keep up with preventative screenings, including mammograms and colonoscopies, as recommended. Orders: Orders Free T4 (Free Thyroxine) 6 Months E03.9 - Hypothyroidism, unspecified Ferritin 6 Months E03.9 - Hypothyroidism, unspecified IRON PROFILE 6 Months E03.9 - Hypothyroidism, unspecified Thyroid Stimulating Hormone 6 Months E03.9 - Hypothyroidism, unspecified Reticulocyte Count 6 Months E03.9 - Hypothyroidism, unspecified Comprehensive Met. Panel Today E03.9 - Hypothyroidism, unspecified Quality Reporting (2019) Depression/Bipolar (159/160/161/177) PHQ-9: Total score: 0 Coding Level of Care Code Medicare Subsequent (G0439) Diagnoses Medicare annual wellness visit, subsequent Z00.00 PAF (paroxysmal atrial fibrillation) I48.0 Primary hypertension I10 Hypertension type: primary hypertension Pacemaker Z95.0 Hypercholesterolemia E78.00 Acquired hypothyroidism E03.9 Hypothyroidism type: acquired Age-related osteoporosis without current pathological fracture M81.0 Osteoporosis type: age-related Presence of current pathological fracture: without current pathological fracture Additional Codes PHQ-9 - 18812 - PHQ-9 Billing: Yes ([id number])
== END 2025-01-11 13:13 | disposition home or self-care (01) ==
LOC: HO.HMCH 12:23
PROVIDERS: PCP Internal Medicine; Visit Provider Internal Medicine
DX: Z00.00 Encounter for general adult medical examination without abnormal findings (principal); I48.0 Paroxysmal atrial fibrillation; I10 Essential (primary) hypertension; Z95.0 Presence of cardiac pacemaker; E78.00 Pure hypercholesterolemia, unspecified; E03.9 Hypothyroidism, unspecified; M81.0 Age-related osteoporosis without current pathological fracture

== ENCOUNTER → 2025-01-11 12:23 | Outpatient (BNVA) | payer MEDICARE, SELFPAY | PROVIDERS: PCP Internal Medicine; Visit Provider Internal Medicine | DX: Z00.00 Encounter for general adult medical examination without abnormal findings (principal); I48.0 Paroxysmal atrial fibrillation; I10 Essential (primary) hypertension; E78.00 Pure hypercholesterolemia, unspecified; E03.9 Hypothyroidism, unspecified; M81.0 Age-related osteoporosis without current pathological fracture; Z95.0 Presence of cardiac pacemaker | CPT/HCPCS: 96127 ==

== ENCOUNTER → 2025-01-26 23:59 | Outpatient (BNV) | payer MEDICARE, SELFPAY ==
--- NOTE | 2025-03-02 21:22 | MHC.OFFVIS ---
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- [facility] Allergies No Known Allergies (No Known Allergies*) Allergy (Verified 01/11/25 12:45) PFS Medical History (Updated 01/11/25 @ 12:42 by Thong Matthews MD) Positive colorectal cancer screening using Cologuard test History of shingles History of atrial fibrillation Hx of tachycardia-bradycardia syndrome Pacemaker Hypothyroid Humerus shaft fracture Dizziness Decreased hearing of both ears Breast cancer screening Osteoporosis screening Colon cancer screening Encounter for annual wellness exam in Medicare patient Dyspnea on exertion Restrictive lung disease Abnormal PFTs (pulmonary function tests) Fatty liver Hypercholesterolemia Chronic kidney disease T12 compression fracture Surgical History History of open reduction and internal fixation (ORIF) procedure History of lumpectomy of right breast Hx of colonoscopy History of permanent cardiac pacemaker placement History of back surgery Family History Father No problems noted. Mother No problems noted. Brother Prostate cancer Sister No problems noted. Son No problems noted. Daughter No problems noted. Family/Other Mental health disorder Substance use disorder Social History (Updated 01/11/25 @ 12:58 by Thong Matthews MD) Housing: House Alcohol intake: current Alcohol intake frequency: a few times a week Comment: wine QD 1 glass Patient Tobacco Use Status: Former Tobacco user Tobacco use type: Cigarette Years Smoked: 19 +/- e-Cigarette/Vaping Use: Never Used Second Hand Smoke Exposure: No service: No Current occupational status: retired Current occupation: right handed Current occupational exposures/hazards: No Cognitive needs: No Hearing needs: No Vision needs: Yes (Glasses) Office Procedures Cardiac Device Check Cardiac Device Check Details: HF monitoring DDDR mode. Stable thoracic impedance. [id number] Cardiac Device Interrogation, cardio physiologic monitor Procedure code (CPT) selection complete Assessment & Plan Assessment & Plan (1) PAF (paroxysmal atrial fibrillation): Code(s): I48.0 - Paroxysmal atrial fibrillation Category: Medical (2) Pacemaker: Comment: Code(s): Z95.0 - Presence of cardiac pacemaker Category: Medical Plan Coding Level of Care Code Procedure Only Diagnoses PAF (paroxysmal atrial fibrillation) I48.0 Pacemaker Z95.0 CPT Codes Cardiac Device Check - Cardiac Device 15: [id number] Cardiac Device Interrogation, cardio physiologic monitor ([id number])
== END ==
PROVIDERS: PCP Internal Medicine; Visit Provider Internal Medicine Cardiovascular Disease
DX: I48.0 Paroxysmal atrial fibrillation (principal); Z95.0 Presence of cardiac pacemaker
CPT/HCPCS: 93297

== ENCOUNTER → 2025-02-19 23:59 | Outpatient (BNV) | payer MEDICARE, SELFPAY ==
--- NOTE | 2025-03-19 20:39 | A.OFFVIS_ITS ---
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- [facility] Allergies No Known Allergies (No Known Allergies*) Allergy (Verified 01/11/25 12:45) PFSH Medical History (Updated 01/11/25 @ 12:42 by Thong Matthews MD) Positive colorectal cancer screening using Cologuard test History of shingles History of atrial fibrillation Hx of tachycardia-bradycardia syndrome Pacemaker Hypothyroid Humerus shaft fracture Dizziness Decreased hearing of both ears Breast cancer screening Osteoporosis screening Colon cancer screening Encounter for annual wellness exam in Medicare patient Dyspnea on exertion Restrictive lung disease Abnormal PFTs (pulmonary function tests) Fatty liver Hypercholesterolemia Chronic kidney disease T12 compression fracture Surgical History History of open reduction and internal fixation (ORIF) procedure History of lumpectomy of right breast Hx of colonoscopy History of permanent cardiac pacemaker placement History of back surgery Family History Father No problems noted. Mother No problems noted. Brother Prostate cancer Sister No problems noted. Son No problems noted. Daughter No problems noted. Family/Other Mental health disorder Substance use disorder Social History (Updated 01/11/25 @ 12:58 by Thong Matthews MD) Housing: House Alcohol intake: current Alcohol intake frequency: a few times a week Comment: wine QD 1 glass Patient Tobacco Use Status: Former Tobacco user Tobacco use type: Cigarette Years Smoked: 19 +/- e-Cigarette/Vaping Use: Never Used Second Hand Smoke Exposure: No service: No Current occupational status: retired Current occupation: right handed Current occupational exposures/hazards: No Cognitive needs: No Hearing needs: No Vision needs: Yes (Glasses) Office Procedures Cardiac Device Check Cardiac Device Check Details: Dual chamber PPM Good battery [employer] 8% No new alerts. [id number] Cardiac Device Interrogation, pacemaker Procedure code (CPT) selection complete Assessment & Plan Assessment & Plan (1) Pacemaker: Comment: Code(s): Z95.0 - Presence of cardiac pacemaker Category: Medical Plan: Coding Level of Care Code Procedure Only Diagnoses Pacemaker Z95.0 CPT Codes Cardiac Device Check - Cardiac Device 12: [id number] Cardiac Device Interrogation, pacemaker ([id number])
== END ==
PROVIDERS: PCP Internal Medicine; Visit Provider Internal Medicine Cardiovascular Disease
DX: Z45.018 Encounter for adjustment and management of other part of cardiac pacemaker (principal)
CPT/HCPCS: 93294

== ENCOUNTER → 2025-03-13 23:59 | Outpatient (BNV) | payer MEDICARE, SELFPAY ==
--- NOTE | 2025-03-19 21:45 | MHC.OFFVIS ---
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- [facility] Allergies No Known Allergies (No Known Allergies*) Allergy (Verified 01/11/25 12:45) PFSH Medical History (Updated 01/11/25 @ 12:42 by Thong Matthews MD) Positive colorectal cancer screening using Cologuard test History of shingles History of atrial fibrillation Hx of tachycardia-bradycardia syndrome Pacemaker Hypothyroid Humerus shaft fracture Dizziness Decreased hearing of both ears Breast cancer screening Osteoporosis screening Colon cancer screening Encounter for annual wellness exam in Medicare patient Dyspnea on exertion Restrictive lung disease Abnormal PFTs (pulmonary function tests) Fatty liver Hypercholesterolemia Chronic kidney disease T12 compression fracture Surgical History History of open reduction and internal fixation (ORIF) procedure History of lumpectomy of right breast Hx of colonoscopy History of permanent cardiac pacemaker placement History of back surgery Family History Father No problems noted. Mother No problems noted. Brother Prostate cancer Sister No problems noted. Son No problems noted. Daughter No problems noted. Family/Other Mental health disorder Substance use disorder Social History (Updated 01/11/25 @ 12:58 by Thong Matthews MD) Housing: House Alcohol intake: current Alcohol intake frequency: a few times a week Comment: wine QD 1 glass Patient Tobacco Use Status: Former Tobacco user Tobacco use type: Cigarette Years Smoked: 19 +/- e-Cigarette/Vaping Use: Never Used Second Hand Smoke Exposure: No service: No Current occupational status: retired Current occupation: right handed Current occupational exposures/hazards: No Cognitive needs: No Hearing needs: No Vision needs: Yes (Glasses) Office Procedures Cardiac Device Check Cardiac Device Check Details: HF monitoring Stable thoracic impedance. [id number] Cardiac Device Interrogation, cardio physiologic monitor Procedure code (CPT) selection complete Assessment & Plan Assessment & Plan (1) Pacemaker: Comment: Code(s): Z95.0 - Presence of cardiac pacemaker Category: Medical Plan: Coding Level of Care Code Procedure Only Diagnoses Pacemaker Z95.0 CPT Codes Cardiac Device Check - Cardiac Device 15: [id number] Cardiac Device Interrogation, cardio physiologic monitor ([id number])
== END ==
PROVIDERS: PCP Internal Medicine; Visit Provider Internal Medicine Cardiovascular Disease
DX: Z45.018 Encounter for adjustment and management of other part of cardiac pacemaker (principal)
CPT/HCPCS: 93297

== ENCOUNTER 2025-03-20 08:59 | Outpatient (AMB) | payer MEDICARE, SELFPAY ==
--- NOTE | 2025-03-20 09:18 | AM.OFFVISNUR ---
Intake Visit Reasons: Prolia Injection Allergies No Known Allergies (No Known Allergies*) Allergy (Verified 01/11/25 12:45) Office Meds Prolia 60 mg/mL subcutaneous syringe Performing Provider: Thong Matthews MD [facility] Administered by: Prudence Lopez LPN on 03/20/25 09:18 Dose Route Admin Location Dispensed Lot Number Expiration Date [facility] Packing Machine Tender 60 mg subcut left arm 1 mL [id number] 10/22/27 19468-086-83 AMGEN Total Dispensed Waste 1 mL 0 % Assessment & Plan Assessment & Plan Orders: Orders AMB Denosumab Injection Patient Supplied Today M81.0 - Age-related osteoporosis without current pathological fracture Coding
== END 2025-03-20 09:19 | disposition home or self-care (01) ==
LOC: HO.HMCH 09:00
PROVIDERS: PCP Internal Medicine; Visit Provider Internal Medicine
DX: M81.0 Age-related osteoporosis without current pathological fracture (principal)

== ENCOUNTER → 2025-03-20 08:59 | Outpatient (BNVA) | payer MEDICARE, SELFPAY | PROVIDERS: PCP Internal Medicine; Visit Provider Internal Medicine | DX: M81.0 Age-related osteoporosis without current pathological fracture (principal) | CPT/HCPCS: 96372; J0897 ==

== ENCOUNTER → 2025-05-02 10:15 | Outpatient (BNV) | payer MEDICARE, SELFPAY | PROVIDERS: PCP Internal Medicine; Visit Provider Internal Medicine Cardiovascular Disease | DX: I50.9 Heart failure, unspecified (principal); Z95.0 Presence of cardiac pacemaker | CPT/HCPCS: 93297 ==